=== PATIENT | female | born 2005 | race Caucasian/White ===

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

== ENCOUNTER 2024-01-14 13:38 | Emergency (ER) | payer OTHER, SELFPAY ==
[2024-01-14 13:37] VITALS: BP 137/98; PULSE 100; RESP 15; TEMP 37.2; O2SAT 98
[2024-01-14 13:50] VITALS: PULSE 97; O2SAT 98
--- NOTE | 2024-01-14 13:52 | ECG_ITS ---
Test Date: 2024-01-14 13:44:30 Measurements Intervals [place] Rate: 97 P: 51 MN: 157 QRS: 12 QRSD: 88 T: 17 QT: 328 QTc: 418 Interpretive Statements SINUS RHYTHM NORMAL ECG Compared to ECG 12/10/2023 08:26:47 No significant changes Electronically Signed On 01-15-2024 14:34:28 CDT by Aureliano Persaud M.D.
--- NOTE | 2024-01-14 13:58 | PC.NURSE ---
ED provider aware of High risk [place] Screening. SI precautions initiated. EDP informed and headed to bedside to evaluate pt
--- NOTE | 2024-01-14 13:59 | ED.GENADULT ---
HPI - General Adult General Chief complaint: Altered Mental Status Stated complaint: altered mental status Time Seen by Provider: 01/14/24 13:41 History of Present Illness HPI narrative: This is a 18-year-old female with history of functional seizures presenting after a functional seizure. She got into an argument with her grandmother about a DCFS case. She then lost consciousness in the hallway. Her grandmother called the EMS and she was brought to the hospital for evaluation. At this time the patient has no complaints. She is at her baseline mental status. She is not suicidal or homicidal. No use of drugs or alcohol. Her boyfriend is with her and they feel comfortable going back home. They have declined any workup. Related Data Home Medications Medication Instructions Recorded Confirmed cetirizine 10 mg tablet 10 mg PO DAILY PRN Allergy Symptoms 11/29/22 01/04/24 levothyroxine 75 mcg tablet 100 mcg PO DAILY 11/29/22 01/04/24 blood sugar diagnostic (OneTouch 11/30/23 01/04/24 Verio test strips) blood-glucose sensor (DexTabletKiosk G6 11/30/23 01/04/24 Sensor device) blood-glucose transmitter (Dexcom 11/30/23 01/04/24 G6 Transmitter device) clonazepam 0.5 mg tablet 1 mg PO BID PRN Anxiety 11/30/23 01/04/24 insulin detemir U-100 100 unit/mL 5 unit subcut QID 11/30/23 01/04/24 (3 mL) subcutaneous pen (Levemir FlexPen) levonorgestrel 21 mcg/24 hr (up to 1 device intrauterine ONCE 11/30/23 01/04/24 8 years) 52 mg intrauterine device (Mirena) acetaminophen 500 mg capsule 1,000 mg PO Q6H PRN Pain (Scale 12/01/23 01/04/24 Score 1-3) lurasidone 20 mg tablet 40 mg PO DAILY 12/01/23 01/04/24 trazodone 100 mg tablet 100 mg PO HS 12/01/23 01/04/24 hydroxyzine pamoate 50 mg capsule 50 mg PO TID PRN Anxiety 12/10/23 01/04/24 lisinopril 2.5 mg tablet 2.5 mg PO DAILY 12/10/23 01/04/24 Allergies Allergy/AdvReac Type Severity Reaction Status Date / Time amoxicillin Allergy Hives Verified 01/14/24 13:49 ceftriaxone Allergy Anaphylaxis Verified 01/14/24 13:49 [facility] Past Medical History Medical History Anxiety Bipolar 1 disorder Depression with suicidal ideation Diabetic ketoacidosis Diabetic polyneuropathy Hypothyroidism Psychogenic nonepileptic seizure Seizure disorder Type 1 diabetes Surgical History Surgical History No pertinent past surgical history Family History Family History Sibling Asthma Mother Hypertension Social History Social History Smoking status: Unknown if ever smoked Alcohol intake: never Substance use: former Substance use type: prescription drug Do You Feel Safe in your Home?: Yes Lack of Transportation: No Lack of Food: Never True Current Housing: I Have Housing Concerned About Future Housing: No Difficulty Paying Gas/Electric Bills: No Difficulty Paying for Meds: No Currently Unemployed: No Education: Grade School Difficulty w/ Childcare or Family Care: No Spiritual care concerns: No Exam Narrative: APPEARANCE: No apparent distress. A&O x4 Head: atraumatic. EYES: EOMI, NOSE: Atraumatic NECK: Trachea midline RESPIRATORY: No increased rate of breathing clear to auscultation CARDIOVASCULAR: RRR, ABDOMINAL: Non-distended MUSCULOSKELETAl: No obvious deformities NEURO: Alert. Cranial nerves 2-12 grossly intact. Sensation light touch, motor function cerebellar function intact for 4 extremities. Gait exam was normal. SKIN:: Warm, dry. Normal color PSYCHIATRIC: Normal affect Course Vital Signs Vital signs: Vital Signs Temperature 99 F 01/14/24 13:37 Pulse Rate 100 01/14/24 13:37 Respiratory Rate 15 01/14/24 13:37 Blood Pressure 137/98 H 01/14/24 13:37 Pulse Oximetry 98 01/14/24 13:37 Oxygen Deliver
[2024-01-14 14:07] LABS: Glucose Point of Care 288 mg/dl (65-105)
[2024-01-14 14:11] VITALS: BP 140/84; PULSE 80; RESP 16; O2SAT 98
== END 2024-01-14 14:12 | disposition home or self-care (01) ==
PROVIDERS: Emergency Provider Emergency Medicine; PCP Emergency Medicine
DX: G40.802 Other epilepsy, not intractable, without status epilepticus (principal); F41.9 Anxiety disorder, unspecified; F31.9 Bipolar disorder, unspecified; E03.9 Hypothyroidism, unspecified; E10.9 Type 1 diabetes mellitus without complications; Z79.4 Long term (current) use of insulin
CPT/HCPCS: 82948; 93005; 99284

== ENCOUNTER 2024-01-23 12:20 | Emergency (ER) | payer OTHER, SELFPAY ==
--- NOTE | ~2024-01-23 | CT_ITS ---
EXAMINATION: CT abdomen pelvis w con DATE: 01/23/2024 16:15 INDICATION: lower abd/lower back pain TECHNIQUE: Computed tomography (CT) of the abdomen and pelvis was performed with 100 mL Omnipaque-350 intravenous contrast. Automated exposure control and iterative reconstruction technique were employe d. The dose-length product was 310.36 mGy-cm. COMPARISON: None. FINDINGS: Lower thorax: Unremarkable Liver: Enlarged. Biliary/Gallbladder: Gallbladder is normal. No bile duct dilation. Pancreas: No mass or duct dilation. Spleen: Normal. Adrenals:No mass. Kidneys: No suspicious mass, obstructing stone, or hydronephrosis. Bilateral lobulation versus cortical scarring. GI tract: Mild distal esophageal and gastric wall edema. No small or large bowel dilation. Appendix n ot confidently visualized, no inflammatory process in the right lower quadrant or at the distal cecum . Mesentery/Peritoneum: No ascites, mass, or free air. Retroperitoneum: No mass. Pelvis: Normal urinary bladder. Retroverted uterus. IUD, in good position. Normal bilateral ovaries. Physiologic free pelvic fluid.. Soft Tissues: Soft tissues and body wall unremarkable. Bones: No acute osseous finding. IMPRESSION: Hepatomegaly. Mild esophagitis/gastritis. Otherwise, no acute abdominopelvic process detected. Reviewed, dictated and finalized at location K.
[2024-01-23 12:20] VITALS: BP 117/72; PULSE 120; RESP 16; TEMP 36.8; O2SAT 99
[2024-01-23 12:34] LABS: Glucose Point of Care 181 mg/dl (65-105)
--- NOTE | 2024-01-23 14:49 | ED.RECABL ---
HPI - Recheck/Abnormal Lab/Rx General Chief Complaint: Urogenital-Female Stated Complaint: dka Time Seen by Provider: 01/23/24 14:42 Source: patient Mode of arrival: ambulatory Limitations: no limitations History of Present Illness HPI narrative: Patient is a 18 y/o female who presents to the ED with c/o ketones in her urine. Patient is a type 1 diabetic, states her blood sugars typically run around 250. They have been elevated into the 300s over the last few days. Patient reports she has not been feeling well over the last few days with fatigue, dry mouth, nausea, lower abdominal/lower back pain. She then tested her urine for ketones and it was noted to be elevated. She then prompted here for further evaluation, concern for DKA. She does have history of DKA. Blood sugar upon arrival 181. Patient denies dysuria, hematuria, cough or cold symptoms, fevers. Related Data Home Medications Medication Instructions Recorded Confirmed cetirizine 10 mg tablet 10 mg PO DAILY PRN Allergy Symptoms 11/29/22 01/04/24 levothyroxine 75 mcg tablet 100 mcg PO DAILY 11/29/22 01/04/24 blood sugar diagnostic (MiniMonosTouch 11/30/23 01/04/24 Verio test strips) blood-glucose sensor (Umweltech G6 11/30/23 01/04/24 Sensor device) blood-glucose transmitter (Dexcom 11/30/23 01/04/24 G6 Transmitter device) clonazepam 0.5 mg tablet 1 mg PO BID PRN Anxiety 11/30/23 01/04/24 insulin detemir U-100 100 unit/mL 5 unit subcut QID 11/30/23 01/04/24 (3 mL) subcutaneous pen (Levemir FlexPen) levonorgestrel 21 mcg/24 hr (up to 1 device intrauterine ONCE 11/30/23 01/04/24 8 years) 52 mg intrauterine device (Mirena) acetaminophen 500 mg capsule 1,000 mg PO Q6H PRN Pain (Scale 12/01/23 01/04/24 Score 1-3) lurasidone 20 mg tablet 40 mg PO DAILY 12/01/23 01/04/24 trazodone 100 mg tablet 100 mg PO HS 12/01/23 01/04/24 hydroxyzine pamoate 50 mg capsule 50 mg PO TID PRN Anxiety 12/10/23 01/04/24 lisinopril 2.5 mg tablet 2.5 mg PO DAILY 12/10/23 01/04/24 Allergies Allergy/AdvReac Type Severity Reaction Status Date / Time amoxicillin Allergy Hives Verified 01/14/24 13:49 ceftriaxone Allergy Anaphylaxis Verified 01/14/24 13:49 Review of Systems Review of Systems: All systems reviewed & are unremarkable except as noted in HPI. All systems reviewed & are unremarkable except as noted in HPI and below PMFSH Past Medical History Medical History Anxiety Bipolar 1 disorder Depression with suicidal ideation Diabetic ketoacidosis Diabetic polyneuropathy Hypothyroidism Psychogenic nonepileptic seizure Seizure disorder Type 1 diabetes Surgical History Surgical History No pertinent past surgical history Family History Family History Sibling Asthma Mother Hypertension Social History Social History Smoking status: Unknown if ever smoked Alcohol intake: never Substance use: former Substance use type: prescription drug Do You Feel Safe in your Home?: Yes Lack of Transportation: No Lack of Food: Never True Current Housing: I Have Housing Concerned About Future Housing: No Difficulty Paying Gas/Electric Bills: No Difficulty Paying for Meds: No Currently Unemployed: No Education: Grade School Difficulty w/ Childcare or Family Care: No Spiritual care concerns: No Exam Narrative: GENERAL: Mildly fatigued appearing, well-nourished, non-toxic, in no acute distress. HEAD: Normocephalic, atraumatic. RESPIRATORY: Airway patent, respirations nonlabored. Clear to auscultation bilaterally, no rales, rhonchi, wheezing. CARDIOVASCULAR: Tachycardic with regular rhythm without murmurs, rubs, or gallops. ABDOMINAL: Soft, mild tenderness throughout lower abdomen/LLQ, nondistended
[2024-01-23 15:20] LABS: Basophils Percent Auto 0.4 % (0.2-1.2); Eosinophils Absolute Auto 0.6 K/mm3 (0-0.3); Eosinophils Percent Auto 7.2 % (0-4.4); Hematocrit 39.3 % (37.0-47.0); Hemoglobin 13.1 g/dL (12.0-15.0); Immature Granulocyte Absolute 0.02 K/mm3 (0.00-0.031); Immature Granulocyte Percent A 0.2 % (0-0.5); Lymphocytes Percent Auto 28.5 % (18.3-44.2); Mean Corpuscular HGB Conc 33.3 g/dl (32-36); Mean Corpuscular Hemoglobin 31.3 pg (26-34); Mean Corpuscular Volume 93.8 fl (80-100); Mean Platelet Volume 9.2 fl (7.4-10.4); Monocytes Absolute Auto 0.6 K/mm3 (0.1-0.6); Neutrophils Absolute Auto 4.8 K/mm3 (1.3-6.7); Neutrophils Percent Auto 56.7 % (45.5-73.1); Platelet Count Result 338 k/mm3 (150-375); Red Blood Count 4.19 M/mm3 (4.2-5.4); Red Cell Distribution Width 12.6 % (11.5-14.5); White Blood Count 8.4 K/mm3 (4.5-10.0)
[2024-01-23 15:27] LABS: Add Urine Microscopic? YES; Appearance Urine Clear (Clear); Bacteria Urine None Seen /hpf; Bilirubin Urine Negative (Negative); Blood Urine 2+ (Negative); Color Urine Yellow (Yellow); Glucose Urine UA 2+ mg/dL (Negative); Ketones Urine Negative (Negative); Leukocyte Esterase Ur Negative LEU/UL (Negative); Nitrate Urine Negative (Negative); Non Pathogenic Casts 0-2; Protein Urine Negative (Negative); RBC Urine 0-2 /hpf (0-2); Squamous Epithelial Cell Urine Moderate /hpf (Few); Urobilinogen Urine 0.2 mg/dL (<2.0)
[2024-01-23 15:32] LABS: Alanine Aminotransferase 13 U/L (6-35); Albumin Level 4.9 g/dL (3.7-5.6); Alkaline Phosphatase 109 U/L (45-116); Anion Gap 15 mmol/L (4-12); Aspartate Amino Transferase 25 U/L (14-36); Bilirubin,Total 0.4 mg/dL (0.2-1.3); Blood Urea Nitrogen 26 mg/dL (8-21); Calcium 10.2 mg/dL (8.9-10.7); Carbon Dioxide 22 mmol/L (22-30); Chloride 98 mmol/L (98-107); Estimated CRCL calculation 76 ml/min; Estimated Glomerular Filt Rate > 60; Glucose 227 mg/dL (65-110); Potassium 4.7 mmol/L (3.4-5.0); Sodium 135 mmol/L (134-143)
[2024-01-23 15:37] LABS: Beta-Hydroxybutyrate/Acetoacetate 0.92 mmol/L (0.02-0.27); Lactic Acid Reflex 1.1 mmol/L (0.7-2.0)
[2024-01-23 15:41] VITALS: BP 122/78; PULSE 78; RESP 16; TEMP 36.6; O2SAT 98
[2024-01-23 15:42] LABS: BEDSIDEPREGUCG Negative
[2024-01-23 15:56] LABS: Influenza A QL RT-PCR Negative (Negative); Influenza B QL RT-PCR Negative (Negative); RSV RNA, RT-PCR Negative (Negative); SARS-CoV-2 RNA PCR Negative (Negative)
[2024-01-23 16:01] LABS: Hemoglobin A1C 9.4 % (<5.7)
[2024-01-23] MEDS: SODIUM CHLORIDE 0.9% IV 1,000 ML 999 ML IV CONT ×2 (16:03→16:25)
[2024-01-23 16:40] VITALS: BP 120/70; PULSE 88; RESP 16; TEMP 36.6; O2SAT 100
[2024-01-23 17:30] VITALS: BP 116/68; PULSE 76; RESP 16; TEMP 36.6; O2SAT 100
[2024-01-23] MEDS: FAMOTIDINE 20 MG/2 ML VIAL IV PUSH (17:54)
== END 2024-01-23 18:23 | disposition home or self-care (01) ==
PROVIDERS: Emergency Provider Physician Assistant; PCP Emergency Medicine
DX: K29.70 Gastritis, unspecified, without bleeding (principal); E10.65 Type 1 diabetes mellitus with hyperglycemia; E86.0 Dehydration; Z20.822 Contact with and (suspected) exposure to COVID-19; E10.42 Type 1 diabetes mellitus with diabetic polyneuropathy; G40.909 Epilepsy, unspecified, not intractable, without status epilepticus; F31.9 Bipolar disorder, unspecified; F41.9 Anxiety disorder, unspecified; Z97.5 Presence of (intrauterine) contraceptive device; Z79.4 Long term (current) use of insulin; Z79.899 Other long term (current) drug therapy; R16.0 Hepatomegaly, not elsewhere classified
CPT/HCPCS: 36415; 74177; 80053; 81001; 81025; 82010; 82948; 83036; 83605; 83735; 85025; 87086; 87637; 96361; 96374; 99284; J7030; Q9967

== ENCOUNTER 2024-04-12 13:42 | Outpatient (CLI) | payer OTHER, SELFPAY ==
--- NOTE | ~2024-04-12 | CT_ITS ---
CLINICAL INDICATION: Lower abdominal pain with loose stool and constipation COMPARISON: 01/23/2024. TECHNIQUE: Multiple contiguous axial images of the abdomen and pelvis were performed following the ad ministration of with 100 mL Omnipaque-350 intravenous contrast The dose-length product (DLP) was 387.46 mGy-cm. Automated exposure control and iterative reconstruction technique were employed. FINDINGS/OBSERVATIONS: Visualized lower thorax: The bilateral lung bases are clear. The heart is of normal size, without pericardial effusion. Liver: The liver is enlarged measuring 20 cm in longitudinal dimension. Gallbladder and biliary system: The gallbladder is only minimally distended, and otherwise unremarkable. Pancreas: The pancreas enhances homogeneously without ductal dilatation. Spleen: The spleen enhances homogeneously and is not enlarged measuring 8 cm in longitudinal dimension. Kidneys: The bilateral kidneys enhance symmetrically without hydronephrosis or renal calculi. Adrenal glands: Unremarkable. Gastrointestinal tract: Redemonstration of mural thickening within the rectum with surrounding inflammatory change in the pre sacral space Appendix: The appendix is not definitively visualized. However, no pericecal inflammatory change is identified suggest the presence of acute appendicitis. Vasculature: Unremarkable. Lymph nodes: No pathologically enlarged or morphologically suspicious lymph nodes within the retroperitoneum or at the root of the mesentery. Pelvic structures: The bladder is distended, and otherwise unremarkable. The uterus is retroverted and retroflexed. Intrauterine device in good position. Trace free fluid in the pelvis, likely physiologic Body wall and musculoskeletal: Small fat-containing umbilical hernia. No significant degenerative disease within the lower thoracic or lumbosacral spine. IMPRESSION: Redemonstration of mural thickening within the rectum with surrounding inflammatory change in the pre sacral space. This distribution suggest the presence of ulcerative colitis for which clinical correla tion and direct visualization is suggested. Reviewed, dictated and finalized at location A. 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 This distribution suggest the presence of u lcerative colitis for which clinical correlation and direct visualization is diallo ggested.
[2024-04-12 14:18] LABS: Estimated Glomerular Filt Rate > 60
== END 2024-04-12 13:43 | disposition home or self-care (01) ==
PROVIDERS: PCP Emergency Medicine; Visit Provider Emergency Medicine
DX: K62.89 Other specified diseases of anus and rectum (principal); R22.2 Localized swelling, mass and lump, trunk; R10.30 Lower abdominal pain, unspecified
CPT/HCPCS: 74177; Q9967

== ENCOUNTER 2024-05-03 01:43 | Day surgery (SDC) | payer OTHER, SELFPAY ==
[2024-04-11 15:23] VITALS: BMI 26.5
[2024-05-03 09:17] VITALS: BP 112/68; PULSE 97; RESP 18; TEMP 36.1; O2SAT 98; BMI 25.5
--- NOTE | 2024-05-03 09:29 | P.PNAN_ITS ---
Anes - Initial Pre Proc Eval Procedure: Operation Date: 05/03/24 10:30 Proposed Procedures p Colonoscopy - Zheng Smith MD Date/Time: 05/03/24 09:29 Surgeon: Zheng Smith MD Pre Op Diagnosis: IBS Patient Data Age: 18 Gender: F Height: 1.55 m Weight: 61.3 kg Last Vital Signs Temp 36.1 C L 05/03/24 09:17 Pulse 97 05/03/24 09:17 Resp 18 05/03/24 09:17 BP 112/68 05/03/24 09:17 Pulse Ox 98 05/03/24 09:17 O2 Del Method Room Air 05/03/24 09:17 Allergies Allergy/AdvReac Type Severity Reaction Status Date / Time amoxicillin Allergy Hives Verified 05/03/24 09:15 ceftriaxone Allergy Anaphylaxis Verified 05/03/24 09:15 Home Medications Medication Instructions Recorded Confirmed Type blood sugar diagnostic (OneTouch 11/30/23 05/03/24 History Verio test strips) blood-glucose sensor (Dexcom G6 11/30/23 05/03/24 History Sensor device) blood-glucose transmitter (Dexcom 11/30/23 05/03/24 History G6 Transmitter device) lisinopril 2.5 mg tablet 2.5 mg PO DAILY 12/10/23 05/03/24 History clonidine HCl 0.1 mg tablet 0.1 mg PO BID PRN Anxiety 04/11/24 05/03/24 History insulin glargine 100 unit/mL (3 16 unit subcut DAILY 04/11/24 05/03/24 History mL) subcutaneous pen (Basaglar KwikPen U-100 Insulin) insulin lispro 100 unit/mL See Rx Instructions .Route .COMPLEX 04/11/24 05/03/24 History subcutaneous solution (Humalog U-100 Insulin) iron sucrose 1 tablet PO DAILY 05/03/24 05/03/24 History Patient hx anesthesia problems: none Family hx anesthesia problems: none Results Review: All pre-operative results and documents have been reviewed as part of the pre- operative evaluation. [facility] Past Medical History Medical History Anxiety Bipolar 1 disorder Depression with suicidal ideation Diabetic ketoacidosis Diabetic polyneuropathy Hypothyroidism Psychogenic nonepileptic seizure Seizure disorder Type 1 diabetes Surgical History Surgical History No pertinent past surgical history Family History Family History Sibling Asthma Mother Hypertension Social History Social History Smoking status: Never smoker Alcohol intake: never Substance use: current Substance use type: marijuana Do You Feel Safe in your Home?: Yes Lack of Transportation: No Lack of Food: Never True Current Housing: I Have Housing Concerned About Future Housing: No Difficulty Paying Gas/Electric Bills: No Difficulty Paying for Meds: No Currently Unemployed: No Education: Grade School Difficulty w/ Childcare or Family Care: No Living arrangements: with family Spiritual care concerns: No Anes - Eval Final PreProcedure Day of Procedure 05/03/24 09:29 Patient weight: overweight Heart: regular rate and rhythm Lungs: clear to auscultation Airway: Mallampati scale class II Neurological: alert and oriented Last oral intake: >/= 8 hours ASA classification: III Emergent: no Anesthetic plan: proceed Anesthesia type and monitoring: general GIVS and standard monitoring Results Review: All pre-operative results and documents have been reviewed as part of the pre-operative evaluation. Informed Consent: The patient's anesthetic plan and its attendant risks and benefits were discussed with the patient/family/POA. Questions were solicited and answers provided to the satisfaction of the patient/family/POA.
[2024-05-03] MEDS: LACTATED RINGERS 1,000 ML 150 ML IV CONT (09:35)
--- NOTE | 2024-05-03 09:35 | SUR.PREOP ---
Addendum entered by Lee Metzger RN 05/03/24 10:04: Medication verified by pharmacy and administered. Original Note: Patients glucose 328 upon arrival to preop. Patient reports she was told that she should give herself her Basaglar 16 units prior to going back for procedure. Notified Dr. Guzman of patients glucose, etc. Per Dr. Guzman, okay for patient to administer her 16 units of Basaglar prior to procedure.
[2024-05-03 09:40] LABS: Glucose Point of Care 328 mg/dl (65-105)
--- NOTE | 2024-05-03 09:54 | PHAR ---
The patient's home med of Basaglar insulin pen has been verified.
[2024-05-03] MEDS: BASAGLAR INSULIN SUB-Q (10:03)
--- NOTE | 2024-05-03 10:46 | PM.IMHP ---
H&P: HPI History of Present Illness Date/Time: 05/03/24 10:46 Chief Complaint: Persistent diarrhea Narrative: the patient has a history of type 1 diabetes, celiac disease and has been experiencing constant diarrhea episodes, at least 5 times a day for the past [address] scan ordered by her primary care physician showed thickening of the rectal mucosa suggestive of colitis. She is here for colonoscopy. Review of Systems Review of Systems: All systems reviewed & are unremarkable except as noted in HPI and below PMFSH Past Medical History Medical History Anxiety Bipolar 1 disorder Depression with suicidal ideation Diabetic ketoacidosis Diabetic polyneuropathy Hypothyroidism Psychogenic nonepileptic seizure Seizure disorder Type 1 diabetes Surgical History Surgical History No pertinent past surgical history Family History Family History Sibling Asthma Mother Hypertension Social History Social History Smoking status: Never smoker Alcohol intake: never Substance use: current Substance use type: marijuana Do You Feel Safe in your Home?: Yes Lack of Transportation: No Lack of Food: Never True Current Housing: I Have Housing Concerned About Future Housing: No Difficulty Paying Gas/Electric Bills: No Difficulty Paying for Meds: No Currently Unemployed: No Education: Grade School Difficulty w/ Childcare or Family Care: No Living arrangements: with family Spiritual care concerns: No Meds Home Medications and Allergies Home Medications Medication Instructions Recorded Confirmed Type blood sugar diagnostic (OneTouch 11/30/23 05/03/24 History Verio test strips) blood-glucose sensor (Dexcom G6 11/30/23 05/03/24 History Sensor device) blood-glucose transmitter (Dexcom 11/30/23 05/03/24 History G6 Transmitter device) lisinopril 2.5 mg tablet 2.5 mg PO DAILY 12/10/23 05/03/24 History clonidine HCl 0.1 mg tablet 0.1 mg PO BID PRN Anxiety 04/11/24 05/03/24 History insulin glargine 100 unit/mL (3 16 unit subcut DAILY 04/11/24 05/03/24 History mL) subcutaneous pen (Basaglar KwikPen U-100 Insulin) insulin lispro 100 unit/mL See Rx Instructions .Route .COMPLEX 04/11/24 05/03/24 History subcutaneous solution (Humalog U-100 Insulin) iron sucrose 1 tablet PO DAILY 05/03/24 05/03/24 History Allergies Allergy/AdvReac Type Severity Reaction Status Date / Time amoxicillin Allergy Hives Verified 05/03/24 09:15 ceftriaxone Allergy Anaphylaxis Verified 05/03/24 09:15 Vital Signs Vital Signs - 24 hr 05/03/24 09:17 Temperature 97 F L Pulse Rate 97 Respiratory Rate 18 Blood Pressure 112/68 Pulse Oximetry 98 Oxygen Delivery Room Air Exam Const: General: cooperative and healthy appearing Resp: Effort & Inspection: normal respiratory effort and able to speak in complete sentences Auscultation: clear to auscultation bilaterally Cardio: Rate: regular rate Rhythm: regular rhythm GI: Inspection: normal to inspection GI Palp: No No hepatosplenomegaly present Auscultation: normal bowel sounds Rectal Exam: deferred Skin: General skin exam: normal color Psych: Appearance: grossly normal Mental Status: mental status grossly normal Assessment and Plan Assessment and plan (1) Diarrhea: Code(s): R19.7 - Diarrhea, unspecified Status: Acute Assessment and Plan: There is a suspicion for ulcerative colitis, since she already has to autoimmune conditions, i.e., type 1 diabetes and celiac disease. Will perform colonoscopy today. The patient is deemed a good candidate for the procedure. Consent signed. Will proceed.
[2024-05-03 11:20] VITALS: BP 95/62; PULSE 79; RESP 20; O2SAT 100
[2024-05-03 11:30] VITALS: BP 102/61; PULSE 93; RESP 20; O2SAT 100
[2024-05-03 11:40] VITALS: BP 109/72; PULSE 75; RESP 17; O2SAT 100
--- NOTE | 2024-05-03 11:47 | SUR.PHASEII ---
patient's blood sugar after the procedure was 312. Notified Dr. Guzman of blood sugar.
[2024-05-03 11:51] LABS: Glucose Point of Care 312 mg/dl (65-105)
== END 2024-05-03 12:01 | disposition home or self-care (01) ==
PROVIDERS: PCP Emergency Medicine; Visit Provider Internal Medicine Gastroenterology
PROC: 0DJD8ZZ Inspection of Lower Intestinal Tract, Via Natural or Artificial Opening Endoscopic (ICD-10-PCS; CPT 45378; principal; 2024-05-03 10:30)
DX: K63.89 Other specified diseases of intestine (principal); E10.10 Type 1 diabetes mellitus with ketoacidosis without coma; E10.42 Type 1 diabetes mellitus with diabetic polyneuropathy; E03.9 Hypothyroidism, unspecified; F41.9 Anxiety disorder, unspecified; R45.851 Suicidal ideations; G40.409 Other generalized epilepsy and epileptic syndromes, not intractable, without status epilepticus; F12.90 Cannabis use, unspecified, uncomplicated; F31.9 Bipolar disorder, unspecified; Z79.4 Long term (current) use of insulin
CPT/HCPCS: 45380; 82948; 88305; J2003; J2704; J7120

== ENCOUNTER 2024-06-03 05:41 | Observation (INO) | payer OTHER, SELFPAY ==
[2024-06-03] VITALS (11 sets, daily range): BP systolic 98–126; BP diastolic 57–96; PULSE 82–114; RESP 12–35; TEMP 36.4–37; O2SAT 98–100; BMI 24.5
[2024-06-03 05:50] LABS: Glucose Point of Care 415 mg/dl (65-105)
[2024-06-03 06:13] LABS: Basophils Percent Auto 0.2 % (0.2-1.2); Eosinophils Percent Auto 0.4 % (0-4.4); Hematocrit 42.2 % (37.0-47.0); Hemoglobin 14.3 g/dL (12.0-15.0); Immature Granulocyte Absolute 0.05 K/mm3 (0.00-0.031); Immature Granulocyte Percent A 0.5 % (0-0.5); Lymphocytes Absolute Auto 1.32 K/mm3 (0.9-3.2); Lymphocytes Percent Auto 13.5 % (18.3-44.2); Mean Corpuscular HGB Conc 33.9 g/dl (32-36); Mean Corpuscular Hemoglobin 31.2 pg (26-34); Mean Corpuscular Volume 92.1 fl (80-100); Mean Platelet Volume 9.5 fl (7.4-10.4); Monocytes Absolute Auto 0.8 K/mm3 (0.1-0.6); Monocytes Percent Auto 8.3 % (2.6-8.5); Neutrophils Absolute Auto 7.6 K/mm3 (1.3-6.7); Neutrophils Percent Auto 77.1 % (45.5-73.1); Platelet Count Result 347 k/mm3 (150-375); Red Blood Count 4.58 M/mm3 (4.2-5.4); Red Cell Distribution Width 11.9 % (11.5-14.5); White Blood Count 9.8 K/mm3 (4.5-10.0)
[2024-06-03 06:22] LABS: Alanine Aminotransferase 13 U/L (6-35); Albumin Level 4.8 g/dL (3.5-5.1); Alkaline Phosphatase 127 U/L (38-126); Anion Gap 22 mmol/L (4-12); Aspartate Amino Transferase 27 U/L (14-36); Bilirubin,Total 0.6 mg/dL (0.2-1.3); Blood Urea Nitrogen 31 mg/dL (7-17); Calcium 9.1 mg/dL (8.4-10.2); Carbon Dioxide 13 mmol/L (22-30); Chloride 92 mmol/L (98-107); Estimated CRCL calculation 50 ml/min; Estimated Glomerular Filt Rate 57; Glucose 449 mg/dL (65-110); Lipase 21 U/L (23-300); Potassium 4.1 mmol/L (3.4-5.0); Sodium 127 mmol/L (137-145)
[2024-06-03 06:31] LABS: BEDSIDEPREGUCG Negative (Negative)
[2024-06-03 07:12] LABS: Add Urine Microscopic? YES; Appearance Urine Cloudy (Clear); Bacteria Urine Rare /hpf; Bilirubin Urine Negative (Negative); Blood Urine Negative (Negative); Color Urine Yellow (Yellow); Glucose Urine UA 3+ mg/dL (Negative); Ketones Urine 4+ mg/dL (Negative); Leukocyte Esterase Ur Negative LEU/UL (Negative); Need Manual Microscopic Reviewed; Nitrate Urine Negative (Negative); Protein Urine 2+ mg/dL (Negative); RBC Urine 0-2 /hpf (0-2); Specific Grav Ur 1.025 (1.001-1.035); Squamous Epithelial Cell Urine Moderate /hpf (Few); Urobilinogen Urine 0.2 mg/dL (<2.0)
--- NOTE | 2024-06-03 07:23 | ED_ITS ---
HPI - Nausea/Vomiting/Diarrhea General Chief complaint: Nausea/Vomiting/Diarrhea Stated complaint: i think im in DKA Time Seen by Provider: 06/03/24 07:00 Source: patient and family Mode of arrival: ambulatory Limitations: no limitations History of Present Illness HPI Narrative: Patient presents with concerns that she is in DKA. She has been having high blood sugars. She is a Type 1 insulin-dependent diabetic on both short-acting (carb corrected Humalog) and long-acting (Basaglar) insulin. She states a stomach bug viral infection has been going through their house starting 06/01/2024. Her 1.5yo daughter was sick a few weeks ago as well with RSV, pneumonia, bronchitis versus bronchiolitis. She has been nauseated and vomiting. She has had diarrhea over the last 24 hours. No recent antibiotics or travel. She has previously been in DKA. She has been having subjective fevers and fatigue as well as myalgias particularly in her legs. No cough. Related Data Home Medications ?Medication ?Instructions ?Recorded ?Confirmed ?Last Taken ?Type blood sugar diagnostic (OneTouch 11/30/23 05/03/24 Unknown History Verio test strips) blood-glucose sensor (Dexcom G6 11/30/23 05/03/24 Unknown History Sensor device) blood-glucose transmitter (Dexcom 11/30/23 05/03/24 Unknown History G6 Transmitter device) lisinopril 2.5 mg tablet 2.5 mg PO DAILY 12/10/23 05/03/24 1 Day Ago History ~05/02/24 clonidine HCl 0.1 mg tablet 0.1 mg PO BID PRN Anxiety 04/11/24 05/03/24 Unknown History insulin glargine 100 unit/mL (3 16 unit subcut DAILY 04/11/24 05/03/24 05/03/24 10:56 History mL) subcutaneous pen (Basaglar KwikPen U-100 Insulin) insulin lispro 100 unit/mL See Rx Instructions .Route .COMPLEX 04/11/24 05/03/24 05/01/24 History subcutaneous solution (Humalog U-100 Insulin) iron sucrose 1 tablet PO DAILY 05/03/24 05/03/24 3 Days Ago History ~04/30/24 Allergies Allergy/AdvReac Type Severity Reaction Status Date / Time amoxicillin Allergy Hives Verified 05/03/24 09:15 ceftriaxone Allergy Anaphylaxis Verified 05/03/24 09:15 [facility] Past Medical History Medical History Diabetic polyneuropathy Hypothyroidism Depression with suicidal ideation Psychogenic nonepileptic seizure Diabetic ketoacidosis Bipolar 1 disorder Anxiety Seizure disorder Type 1 diabetes Surgical History Surgical History History of colonoscopy 05/03/24 Family History Family History Sibling Asthma Mother Hypertension Social History Social History (Updated 06/03/24 @ 08:05 by Kaylyn Jenkins MD) Smoking status: Never smoker Alcohol intake: never Substance use: current Substance use type: marijuana Do You Feel Safe in your Home?: Yes Lack of Transportation: No Lack of Food: Never True Current Housing: I Have Housing Concerned About Future Housing: No Difficulty Paying Gas/Electric Bills: No Difficulty Paying for Meds: No Currently Unemployed: No Education: Grade School Difficulty w/ Childcare or Family Care: No Living arrangements: with family Additional living arrangements comments: partner and 1.5yo daughter Spiritual care concerns: No Exam 2 Narrative: GENERAL: well-nourished, and mild acute distress. Appears acutely unwell, pale HEAD: Normocephalic, atraumatic. EYES: Non injected, non icteric ENT: Nares clear, no rhinorrhea or epistaxis. NECK: Supple. CHEST: Speaking in full sentences. No respiratory distress. HEART: Tachycardic rate and rhythm. ABDOMEN: Soft, nondistended. EXTREMITIES: Normal range of motion. No lower extremity edema. SKIN: Warm, dry, no rash. NEURO: No focal deficits. Alert and oriented x3. PSYCH: Normal mood and affect. Course Vital Signs Vital signs: Vital Signs Pulse Rate 112 H 06/03/24 05:54 Respiratory Rate 18 06/03/24 05:54 Blood Pressure 126/96 H 06/03/24 05:54 Pulse Oximetry 100 06/03/24 05:54 Oxygen Delivery Room Air 06/03/24 05:54 Temperature 97.8 F 06/03/24 09:00 Pulse Rate 108 H 06/03/24 09:00 Respiratory Rate 18 06/03/24 09:00 Blood Pressure 118/72 06/03/24 09:00 Pulse Oximetry 100 06/03/24 09:00 Oxygen Delivery Room Air 06/03/24 05:54 MDM - Nausea/Vomiting/Diarrhea MDM Narrative Medical decision making narrative: The patient presents with fatigue, nausea/vomiting, and diarrhea. POC glucose 415mg/dL. In the emergency department she is afebrile with vital signs notable for tachycardia as well as an elevated diastolic blood pressure. Diagnosis of DKA based on the triad of hyperglycemia, ketonuria, and anion-gap metabolic acidosis. She also has glucosuria. Fluid bolus with normal saline administered x1 initially by RN. test negative. 2nd L fluid bolus ordered. Patient has a degree of pseudo hyponatremia as there sodium corrects to 133-135 in the setting of hyperglycemia, improved but still not completely normalized. She has a mild HENRRY. Viral swab negative. Insulin gtt is initiated at approximately 0.1U/kg/hour (~6). Patient is discussed with on-call warhead maintenance specialist Dr. Castro who requests a 3rd bolus in addition to the DKA protocol which includes scheduled metabolic checks. Differential Diagnosis Differential diagnosis: Likely traveler's diarrhea, food poisoning, gastroenteritis, clostridium difficile infection, drug-induced nausea and vomiting, dehydration and other (; DKA, hyperglycemia, acute viral syndrome) Lab Data Attestation: I reviewed the patient's lab results. Lab results narrative: CBC unremarkable 06/03/24 05:58 06/03/24 09:06 Labs: Lab Results 06/03/24 06/03/24 06/03/24 Range/Units 05:47 05:58 06:29 WBC 9.8 (4.5-10.0) K/mm3 RBC 4.58 (4.2-5.4) M/mm3 Hgb 14.3 (12.0-15.0) g/dL Hct 42.2 (37.0-47.0) % MCV 92.1 (80-100) fl MCH 31.2 (26-34) pg MCHC 33.9 (32-36) g/dl RDW 11.9 (11.5-14.5) % Plt Count 347 (150-375) k/mm3 MPV 9.5 (7.4-10.4) fl Immature Gran % (Auto) 0.5 (0-0.5) % Neut % (Auto) 77.1 H (45.5-73.1) % Lymph % (Auto) 13.5 L (18.3-44.2) % [place] % (Auto) 8.3 (2.6-8.5) % Eos % (Auto) 0.4 (0-4.4) % Baso % (Auto) 0.2 (0.2-1.2) % Lymph # (Auto) 1.32 (0.9-3.2) K/mm3 [place] # (Auto) 0.8 H (0.1-0.6) K/mm3 Eos # (Auto) 0.0 (0-0.3) K/mm3 Baso # (Auto) 0.0 (0.0-0.1) K/mm3 Abs Immat Gran (auto) 0.05 H (0.00-0.031) K/mm3 Absolute Neuts (auto) 7.6 H (1.3-6.7) K/mm3 Absolute Nucleated RBC 0.000 (0.0-0.012) K/mm3 Nucleated RBC % 0.0 (0.0-0.2) % Sodium 127 L (137-145) mmol/L Potassium 4.1 (3.4-5.0) mmol/L Chloride 92 L (98-107) mmol/L Carbon Dioxide 13 L (22-30) mmol/L Anion Gap 22 H (4-12) mmol/L BUN 31 H (7-17) mg/dL Creatinine 1.20 H (0.7-1.0) mg/dL Estim Creat Clear Calc 50 ml/min Estimated GFR 57 L (59 - ) Glucose 449 H (65-110) mg/dL POC Capillary Glucose 415 H (65-105) mg/dl Hemoglobin A1c Pending Calcium 9.1 (8.4-10.2) mg/dL Magnesium 2.4 H (1.6-2.3) mg/dL Total Bilirubin 0.6 (0.2-1.3) mg/dL AST 27 (14-36) U/L ALT 13 (6-35) U/L Alkaline Phosphatase 127 H (38-126) U/L Total Protein 8.0 (6.3-8.2) g/dL Albumin 4.8 (3.5-5.1) g/dL Lipase 21 L (23-300) U/L Urine Color Yellow (Yellow) Urine Appearance Cloudy H (Clear) Urine pH 5.0 (5.0-9.0) Ur Specific [place] 1.025 (1.001-1.035) Urine Protein 2+ H (Negative) mg/dL Urine Glucose (UA) 3+ H (Negative) mg/dL Urine Ketones 4+ H (Negative) mg/dL Ur Blood (Man) Negative (Negative) Urine Nitrate Negative (Negative) Urine Bilirubin Negative (Negative) Urine Urobilinogen 0.2 (<2.0) mg/dL Add Ur Microanalysis Reviewed Leukocyte Esterase Rfl Negative (Negative) JERROD/UL Urine RBC 0-2 (0-2) /hpf Urine WBC 11-20 H (0-3) /hpf Ur Squamous Epith Cells Moderate (Few) /hpf Urine Bacteria Rare /hpf Urine Casts 3-5 POC Urine HCG, Qual Negative (Negative) Discharge Plan Discharge Clinical Impression: HENRRY (acute kidney injury), Glucosuria DKA (diabetic ketoacidosis) Qualifiers: Diabetes mellitus complication detail: without coma Patient Disposition: Still a Patient Condition: Serious
[2024-06-03 07:53] LABS: Magnesium 2.4 mg/dL (1.6-2.3)
[2024-06-03] MEDS: SODIUM CHLORIDE 0.9% IV 1,000 ML 999 ML IV CONT ×2 (07:56)
[2024-06-03] MEDS: SODIUM CHLORIDE 0.9% IV 1,000 ML 999 ML (07:56)
[2024-06-03] MEDS: INSULIN HUMAN REGULAR (*BKC) 100 UNITS in SODIUM CHLORIDE 0.9% IV 99 ML 6 UNITS IV CONT (08:12)
[2024-06-03] MEDS: FAMOTIDINE 20 MG/2 ML VIAL IV PUSH ×2 (08:12→22:00)
[2024-06-03 08:23] LABS: Glucose Point of Care 433 mg/dl (65-105)
[2024-06-03 09:17] LABS: Glucose Point of Care 349 mg/dl (65-105)
[2024-06-03 09:19] LABS: Influenza A QL RT-PCR Negative (Negative); Influenza B QL RT-PCR Negative (Negative); RSV RNA, RT-PCR Negative (Negative); SARS-CoV-2 RNA PCR Negative (Negative)
[2024-06-03 09:29] LABS: Anion Gap 17 mmol/L (4-12); Blood Urea Nitrogen 26 mg/dL (7-17); Calcium 7.1 mg/dL (8.4-10.2); Carbon Dioxide 8 mmol/L (22-30); Chloride 107 mmol/L (98-107); Creatine Kinase < 20 U/L (30-135); Estimated CRCL calculation 66 ml/min; Estimated Glomerular Filt Rate > 60; Glucose 407 mg/dL (65-110); Phosphorus 2.1 mg/dL (2.5-4.5); Potassium 3.7 mmol/L (3.4-5.0); Sodium 132 mmol/L (137-145)
[2024-06-03 09:56] LABS: Glucose Point of Care 323 mg/dl (65-105)
[2024-06-03] MEDS: SODIUM CHLORIDE 0.9% IV 1,000 ML 150 ML IV CONT ×2 (10:00→23:34)
[2024-06-03 10:21] LABS: Hemoglobin A1C 11.1 % (<5.7)
[2024-06-03] MEDS: METOCLOPRAMIDE HCL INJ 10 MG/2 ML VIAL IV PUSH (10:25)
--- NOTE | 2024-06-03 10:32 | PC.NURSE ---
This patient, Shama Godfrey, was admitted to Intensive Care Unit-5. Patient/family oriented to hospital policies and general routines including ID bracelet, bed and alarms, visiting hours, pain management, procedures, bathroom and other care routines, personal items, smoking policy, room service/diet, and visiting hours. Information on how to activate the Rapid Response Team has been discussed. Patient/Family are encouraged to report perceived risks to care and to ask questions if they do not understand what they are told or what they should do.
[2024-06-03 11:07] LABS: Glucose Point of Care 147 mg/dl (65-105)
--- NOTE | 2024-06-03 11:13 | WPDCNINT ---
Assessment and Plan Assessment and plan (1) DKA (diabetic ketoacidosis): Qualifiers: Diabetes mellitus complication detail: without coma Code(s): E11.10 - Type 2 diabetes mellitus with ketoacidosis without coma Status: Acute Assessment and Plan: 06/03: Patient presented with nausea, vomiting, diarrhea, hyperglycemia, anion gap metabolic acidosis, was diagnosed with diabetic ketoacidosis in the ER. Given 3 L IV fluid bolus and started on insulin infusion and IV fluids per DKA protocol -in the ICU patient is having dry heaves but no nausea vomiting -will transition to long-acting insulin and sliding scale insulin once anion gap closes -ice chips and sips with meds (2) HENRRY (acute kidney injury): Code(s): N17.9 - Acute kidney failure, unspecified Status: Acute Assessment and Plan: Likely hypovolemic secondary to nausea, vomiting, diarrhea -creatinine has normalized -continue to monitor urine output, renal function electrolytes (3) Diarrhea: Code(s): R19.7 - Diarrhea, unspecified Status: Acute Assessment and Plan: Diarrhea, patient has been evaluated by GI on 05/03/2024, colonoscopy on 05/03/2025 -GI has been consulted 06/03/2024: CT scan of the abdomen and pelvis IMPRESSION: Redemonstration of mural thickening within the rectum with surrounding inflammatory change in the presacral space. This distribution suggest the presence of ulcerative colitis for which clinical correlation and direct visualization is suggested. 05/03/2025 Pathology report IMPRESSION: A. Right colon, random biopsies: - Lymphoid nodular hyperplasia - No evidence of microscopic colitis B. Left colon, random biopsies: - Lymphoid nodular hyperplasia - No evidence of microscopic colitis Plan DVT prophylaxis: Lovenox Stress ulcer prophylaxis: Famotidine Nutrition: Ice chips and sips with meds Code Status: Full code Critical Care Time Spent: 44 minutes Updated patient with her condition and plan of care. She has had DKA previously so she is aware of the treatment plan. I answered all questions Due to a high probability of clinically significant, life threatening deterioration, the patient required my highest level of preparedness to intervene emergently and I personally spent this critical care time directly and personally managing the patient. This critical care time included obtaining a history; examining the patient; pulse oximetry; ordering and review of studies; arranging urgent treatment with development of a management plan; evaluation of patient's response to treatment; frequent reassessment; and discussions with other providers. It was exclusive of separately billable procedures and treating other patients and teaching time. Please see Assessment and Plan section and the rest of the note for further information on patient assessment and treatment This dictation may have been done utilizing a voice recognition system. Attempts have been made to correct errors. However, there may be uncorrected grammatical, spelling, and recognitions errors present. [employer] Consult Note Consult date: 06/03/24 Reason for consult: Diabetic ketoacidosis, nausea, vomiting, diarrhea, ulcerative colitis on CT scan of the abdomen and pelvis HPI: Shama Godfrey is a 19 year old female with past medical history of type 1 diabetes, seizure disorder, psychogenic neuroleptics seizures, hypothyroidism, diabetic polyneuropathy, DKA, depression with suicidal ideation, bipolar disorder, anxiety presented the ED on 06/03/2024 with complains of nausea, vomiting and diarrhea since new ' Day. Patient has been noticing that her blood sugars have been elevated. In the ER patient was found to be in diabetic ketoacidosis, anion gap metabolic acidosis, hyperglycemia. UA was positive for glucose, ketones and proteins. COVID, influenza, RSV Off note patient was seen for colitis by Dr. Smith of [facility], colonoscopy did not show any colitis, pathology of the right and left colon did not show any evidence of microscopic colitis. Patient was given 3 L IV fluids, started on insulin infusion and transferred to the ICU for further management Patient seen and examined the ICU, is awake, alert, with dry heaves. Hemodynamically stable, adequate O2 sats on room air. Denies any shortness of breath, chest pain, abdominal pain at this time. On insulin infusion per DKA protocol Review of Systems Review of Systems: All systems reviewed & are unremarkable except as noted in HPI and below PMFSH Past Medical History Medical History Diabetic polyneuropathy Hypothyroidism Depression with suicidal ideation Psychogenic nonepileptic seizure Diabetic ketoacidosis Bipolar 1 disorder Anxiety Seizure disorder Type 1 diabetes Surgical History Surgical History History of colonoscopy 05/03/24 Family History Family History Sibling Asthma Mother Hypertension Social History Social History (Updated 06/03/24 @ 08:05 by Kaylyn Jenkins MD) Smoking status: Never smoker Second hand tobacco smoke exposure: No Alcohol intake: never Substance use: current Substance use type: marijuana Do You Feel Safe in your Home?: Yes Lack of Transportation: No Lack of Food: Never True Current Housing: Decline to Answer Concerned About Future Housing: Decline to Answer Difficulty Paying Gas/Electric Bills: Decline to Answer Difficulty Paying for Meds: Decline to Answer Currently Unemployed: Decline to Answer Education: High School Diploma/GED Difficulty w/ Childcare or Family Care: Decline to Answer Living arrangements: with family Additional living arrangements comments: partner and 1.5yo daughter Spiritual care concerns: No Meds Home Medications and Allergies Home Medications ?Medication ?Instructions ?Recorded ?Confirmed ?Type blood sugar diagnostic (OneTouch 11/30/23 06/03/24 History Verio test strips) blood-glucose sensor (Dexcom G6 11/30/23 06/03/24 History Sensor device) insulin glargine 100 unit/mL (3 16 unit subcut DAILY 04/11/24 06/03/24 History mL) subcutaneous pen (Basaglar KwikPen U-100 Insulin) insulin lispro 100 unit/mL See Rx Instructions .Route .COMPLEX 04/11/24 06/03/24 History subcutaneous solution (Humalog U-100 Insulin) Allergies Allergy/AdvReac Type Severity Reaction Status Date / Time amoxicillin Allergy Hives Verified 05/03/24 09:15 ceftriaxone Allergy Anaphylaxis Verified 05/03/24 09:15 Vital Signs Vital Signs - 24 hr 06/03/24 05:54 06/03/24 07:46 06/03/24 09:00 Temperature 97.6 F 97.8 F Pulse Rate 112 H 114 H 108 H Respiratory Rate 18 18 18 Blood Pressure 126/96 H 124/68 118/72 Pulse Oximetry 100 99 100 Oxygen Delivery Room Air 06/03/24 10:00 06/03/24 10:00 06/03/24 10:00 Temperature 98.6 F Pulse Rate 107 H 102 H 106 H Respiratory Rate 19 21 H Blood Pressure 112/70 113/70 Pulse Oximetry 98 99 Oxygen Delivery Exam Narrative: General: Young female currently in no acute distress HEENT:? Pupils equal and reactive was clear ischemia, moist oral mucous Neck:? Supple Respiratory:? Clear to auscultation bilaterally Cardiac:? S1-S2 is normal, regular rate and rhythm Abdomen:? Soft, nontender, nondistended, normoactive bowel sound Extremities:? No edema, palpable pedal pulses Neuro:? Patient awake, alert, oriented, nonfocal Skin:? Warm and dry, no lesions Psych:? Normal mentation and affect Results Labs 06/03/24 05:58 06/03/24 09:06 Labs: Short CBC 06/03/24 Range/Units 05:58 WBC 9.8 (4.5-10.0) K/mm3 Hgb 14.3 (12.0-15.0) g/dL Hct 42.2 (37.0-47.0) % Plt Count 347 (150-375) k/mm3 BMP 06/03/24 06/03/24 05:58 09:06 Sodium 127 L 132 L Potassium 4.1 3.7 Chloride 92 L 107 Carbon Dioxide 13 L 8 L BUN 31 H 26 H Creatinine 1.20 H 0.90 Glucose 449 H 407 H Calcium 9.1 7.1 L Cardiac Enzymes 06/03/24 Range/Units 09:06 Total Creatine Kinase < 20 L (30-135) U/L Liver Function 06/03/24 Range/Units 05:58 Total Bilirubin 0.6 (0.2-1.3) mg/dL AST 27 (14-36) U/L ALT 13 (6-35) U/L Alkaline Phosphatase 127 H (38-126) U/L Albumin 4.8 (3.5-5.1) g/dL Urine 06/03/24 Range/Units 06:29 Urine Color Yellow (Yellow) Urine Appearance Cloudy H (Clear) Urine pH 5.0 (5.0-9.0) Ur Specific [place] 1.025 (1.001-1.035) Urine Protein 2+ H (Negative) mg/dL Urine Glucose (UA) 3+ H (Negative) mg/dL
[2024-06-03] MEDS: KCL 20 MEQ/D5/0.45% SOD CHL 1,000 ML 150 ML IV CONT ×2 (11:14→17:48)
[2024-06-03] MEDS: ACETAMINOPHEN 325 MG TABLET 650 MG PO (11:39)
[2024-06-03 12:25] LABS: Glucose Point of Care 145 mg/dl (65-105)
--- NOTE | 2024-06-03 12:40 | PM.IMHP ---
H&P: HPI History of Present Illness Date/Time: 06/03/24 13:30 Chief Complaint: High blood sugar. Narrative: This is a 19-year-old female with history of type 1 diabetes mellitus with diabetic polyneuropathy, diabetic ketoacidosis, seizure disorder, psychogenic nonepileptic seizures, hypothyroidism, bipolar disorder, anxiety, and depression with history of suicide attempt who presented to the emergency department with complaints high blood sugar. She gives a 2 day history of nausea, vomiting, diarrhea, subjective fevers, fatigue, and myalgias. Her glucose is becoming increasingly elevated. Other members in her household have had similar symptoms and her daughter was also sick several weeks ago with RSV and pneumonia. She denies sinus congestion, sore throat, cough, hematemesis, melena, hematochezia, and dysuria. In the ED: She was tachycardic on arrival though the remainder of her vital signs were stable. Labs were significant for sodium of 127, potassium 4.1, chloride 92, carbon dioxide 13, anion gap 22, BUN 31, creatinine 1.20, glucose 449. Urinalysis was positive for 2+ protein, 3+ glucose, and 4+ ketones. Respiratory panel was negative. She was given 2 L IV fluid bolus, ondansetron, and was started on insulin drip and she is being admitted in this setting for further treatment of DKA. Review of Systems Review of Systems: 12 systems were reviewed and are negative except for as per HPI. [facility] Past Medical History Medical History (Updated 06/03/24 @ 13:12 by Yumiko Vivar PA-C) Suicide attempt (11/2023) Depression Diabetic polyneuropathy Hypothyroidism Psychogenic nonepileptic seizure Diabetic ketoacidosis Bipolar 1 disorder Anxiety Seizure disorder Type 1 diabetes Surgical History Surgical History (Updated 06/03/24 @ 13:10 by Yumiko Vivar PA-C) History of appendectomy History of colonoscopy (05/2024) For evaluation of diarrhea- normal colonoscopy to depth of insertion. Left and right colon biopsies were without evidence of microscopic colitis. Family History Family History Sibling Asthma Mother Hypertension Social History Social History (Updated 06/03/24 @ 13:11 by Yumiko Vivar PA-C) Social History: Surrogate medical decision maker: capri Stubbs other ([phone]). Code status: Full code. Smoking status: Never smoker Second hand tobacco smoke exposure: No Alcohol intake: never Substance use: current Substance use type: marijuana Do You Feel Safe in your Home?: Yes Lack of Transportation: No Lack of Food: Never True Current Housing: Decline to Answer Concerned About Future Housing: Decline to Answer Difficulty Paying Gas/Electric Bills: Decline to Answer Difficulty Paying for Meds: Decline to Answer Currently Unemployed: Decline to Answer Education: High School Diploma/GED Difficulty w/ Childcare or Family Care: Decline to Answer Additional living arrangements comments: Lives with significant other and daughter in [place]. Additional occupation/education comments: Unemployed. Spiritual care concerns: No Meds Home Medications and Allergies Home Medications ?Medication ?Instructions ?Recorded ?Confirmed ?Type blood sugar diagnostic (OneTouch 11/30/23 06/03/24 History Verio test strips) blood-glucose sensor (Dexcom G6 11/30/23 06/03/24 History Sensor device) insulin glargine 100 unit/mL (3 16 unit subcut DAILY 04/11/24 06/03/24 History mL) subcutaneous pen (Basaglar KwikPen U-100 Insulin) insulin lispro 100 unit/mL See Rx Instructions .Route .COMPLEX 04/11/24 06/03/24 History subcutaneous solution (Humalog U-100 Insulin) Allergies Allergy/AdvReac Type Severity Reaction Status Date / Time amoxicillin Allergy Hives Verified 05/03/24 09:15 ceftriaxone Allergy Anaphylaxis Verified 05/03/24 09:15 Vital Signs Vital Signs - 24 hr 06/03/24 05:54 06/03/24 07:46 06/03/24 09:00 Temperature 97.6 F 97.8 F Pulse Rate 112 H 114 H 108 H Respiratory Rate 18 18 18 Blood Pressure 126/96 H 124/68 118/72 Pulse Oximetry 100 99 100 Oxygen Delivery Room Air 06/03/24 10:00 06/03/24 10:00 06/03/24 10:00 Temperature 98.6 F Pulse Rate 107 H 102 H 106 H Respiratory Rate 19 21 H Blood Pressure 112/70 113/70 Pulse Oximetry 98 99 Oxygen Delivery Exam Narrative: General: Ill-appearing female in the semi-Ramirez position in bed. As a weight: 58.9 kg. BMI: 24.5. HEENT: PERRL, EOMI. Sclera anicteric. Conjunctiva moderately injected. Tacky mucous membranes. Neck: Supple. Respiratory: Lungs are clear to auscultation bilaterally. Cardiovascular: Tachycardic with normal S1-S2. Gastrointestinal: Abdomen is soft, nontender, and nondistended with positive bowel sounds. Skin: Warm and dry. No rash or lesions on limited exam. Extremities: No cyanosis, clubbing, or edema. Radial and pedal pulses intact. Neurological: Alert. Cranial nerves 2-12 are grossly intact. No gross focal deficits to casual conversation. Psychiatric: Cooperative with appropriate mood and anxious affect. H&P: Results Labs Labs: Short CBC 06/03/24 Range/Units 05:58 WBC 9.8 (4.5-10.0) K/mm3 Hgb 14.3 (12.0-15.0) g/dL Hct 42.2 (37.0-47.0) % Plt Count 347 (150-375) k/mm3 BMP 06/03/24 06/03/24 05:58 09:06 Sodium 127 L 132 L Potassium 4.1 3.7 Chloride 92 L 107 Carbon Dioxide 13 L 8 L BUN 31 H 26 H Creatinine 1.20 H 0.90 Glucose 449 H 407 H Calcium 9.1 7.1 L Cardiac Enzymes 06/03/24 Range/Units 09:06 Total Creatine Kinase < 20 L (30-135) U/L Liver Function 06/03/24 Range/Units 05:58 Total Bilirubin 0.6 (0.2-1.3) mg/dL AST 27 (14-36) U/L ALT 13 (6-35) U/L Alkaline Phosphatase 127 H (38-126) U/L Albumin 4.8 (3.5-5.1) g/dL Urine 06/03/24 Range/Units 06:29 Urine Color Yellow (Yellow) Urine Appearance Cloudy H (Clear) Urine pH 5.0 (5.0-9.0) Ur Specific [place] 1.025 (1.001-1.035) Urine Protein 2+ H (Negative) mg/dL Urine Glucose (UA) 3+ H (Negative) mg/dL Assessment and Plan Assessment and plan (1) Diabetic ketoacidosis: Code(s): E11.10 - Type 2 diabetes mellitus with ketoacidosis without coma Status: Acute (2) Acute kidney injury: Code(s): N17.9 - Acute kidney failure, unspecified Status: Acute (3) Diarrhea: Qualifiers: Diarrhea type: presumed infectious Qualified Code(s): R19.7 - Diarrhea, unspecified Code(s): R19.7 - Diarrhea, unspecified Status: Acute Plan The patient presented to the emergency department with complaints of high blood sugar after 2 days of nausea, vomiting, and diarrhea as detailed in HPI. Glucose was 449 on arrival with elevated anion gap, ketonuria, and glucosuria. She has been admitted to the ICU on an insulin drip which will be titrated per DKA protocol. She has an acute kidney injury, likely due to dehydration from volume loss, and she is being aggressively hydrated. Continue Q hourly Accu-Cheks and q.4 BMPs to monitor electrolytes, glucose, and for anion gap closure. Hemoglobin A1c is at 11.1% today and the sustainable agriculture specialist has been consulted. She continues to have issues with diarrhea and stool studies have been ordered. Abdominal CT today once again showed mural thickening within the rectum and surrounding inflammatory change suggestive of possible ulcerative colitis although a colonoscopy in 05/2024 was unremarkable to depth with left and right colon biopsy showing no evidence of microscopic colitis. GI consulted for further recommendations. Her medications will be reviewed and resumed as appropriate. Findings and treatment plan were discussed with the patient. Questions were solicited and answered to satisfaction. The patient's medical management will be taken over by the hospitalist team in a.m. Quality VTE Prophylaxis VTE prophylaxis: pharmacologic ordered The patient has been admitted under observation status. Hospitalist [facility] Advance Care Plan I have confirmed that the patient's Advanced Care Plan is present, code status is documented, or surrogate decision maker is listed in patient medical record.: Yes Medication Reconciliation I have utilized all available resources to obtain, update and review the patients current medications (includes all prescriptions, OTC, herbals, cannabis, and nutritional supplements).: Yes
[2024-06-03 12:41] LABS: Anion Gap 10 mmol/L (4-12); Blood Urea Nitrogen 21 mg/dL (7-17); Calcium 7.3 mg/dL (8.4-10.2); Carbon Dioxide 11 mmol/L (22-30); Chloride 112 mmol/L (98-107); Estimated CRCL calculation 83 ml/min; Estimated Glomerular Filt Rate > 60; Glucose 160 mg/dL (65-110); Sodium 133 mmol/L (137-145)
--- NOTE | 2024-06-03 12:50 | P.CONGI_ITS ---
Assessment and Plan Assessment and plan (1) Diarrhea: Qualifiers: Diarrhea type: presumed infectious Qualified Code(s): R19.7 - Diarrhea, unspecified <Stephany D. Neydasouleymane [facility] - Last Filed: 06/03/24 13:05> Code(s): R19.7 - Diarrhea, unspecified <Stephany D. Koledana [facility] - Last Filed: 06/03/24 13:05> Status: Acute <Stephany D. Koledana [facility] - Last Filed: 06/03/24 13:05> (2) DKA (diabetic ketoacidosis): Qualifiers: Diabetes mellitus complication detail: without coma D iabetes mellitus type: type 1 Qualified Code(s): E10.10 - Type 1 diabetes mellitus with ketoacidosis without coma <Stephany D. Neydasouleymane, [facility] - Last Filed: 06/03/24 13:05> Code(s): E11.10 - Type 2 diabetes mellitus with ketoacidosis without coma < Stephany D. Neydasouleymane, [facility] - Last Filed: 06/03/24 13:05> Status: Acute <Stephany D. Koledana, [facility] - Last Filed: 06/03/24 13:05> (3) Nausea and vomiting: Qualifiers: Vomiting type: bilious vomiting Qualified Code(s): R11.14 - Bilious vomiting <Stephany D. Neydasouelymane [facility] - Last Filed: 06/03/24 13:05> Code(s): R11.2 - Nausea with vomiting, unspecified <Stephany D. Neydasouleymane [facility] - Last Filed: 06/03/24 13:05> Status: Acute <Stephany D. Neydasouleymane, [facility] - Last Filed: 06/03/24 13:05> (4) Abnormal digestive system diagnostic imaging: Code(s): R93.3 - Abnormal findings on diagnostic imaging of other parts of digestive tract <Stephany D. Neydasouleymane [employer] [employer] - Last Filed: 06/03/24 13:05> Status: Acute <Stephany D. Neydasouleymane [facility] - Last Filed: 06/03/24 13:05> (5) Esophagitis: Code(s): K20.90 - Esophagitis, unspecified without bleeding <Stephany D. Eslinger, [employer] - Last Filed: 06/03/24 13:05> Status: Acute <Stephany Quiles APRN - Last Filed: 06/03/24 13:05> Assessment and Plan: 1. Colitis/nausea/vomiting/diarrhea/nausea/vomiting/ Abnormal imaging digestive/DKA: CT scan on April 12 showed mural thickening into the rectum with surrounding inflammatory changes in the presacral space. CT performed in December of 2023 showed mild esophagitis / gastritis. Colonoscopy 05/03/2024 was normal and biopsies were negative for microscopic colitis. Last EGD performed many years ago as a child, results unknown. Patient states that following her colonoscopy her diarrhea had improved and she was having formed stools until about 2 days ago. Patient states that she lives with a grandparent and he had an acute onset of nausea, vomiting and diarrhea in these symptoms later spread throughout the house. Patient admits to a decreased appetite over the past 3 days. She is still having nausea and vomiting with only minimal improvement with antiemetics. She complains of generalized abdominal soreness related to diarrhea and frequent vomiting but denies any specific pain. Over the past 2 days she has been having liquid nonstop diarrhea. Today she had a bowel movement that was more formed and non urgent. Prior to her admission she states that her blood sugar got out of control yesterday evening and on arrival blood sugar was at 449 which has been trending down 407-->160 and A1C 11.1. LFTs were normal except mildly elevated alkaline phosphatase at 127 and lipase 21. No repeat abdominal imaging has been performed this admission so there is no confirmation of colitis. * Given description of symptoms and acute onset her symptoms are likely related to acute viral /inflammatory condition in combination with current DKA * no indication for emergent endoscopic evaluation at this time * Continue supportive care with IV fluids, antiemetics, and pain management * continue famotidine and Reglan as needed * start Protonix 40 mg IV daily * if symptoms persist may consider inpatient gastric emptying study given history of uncontrolled blood sugars * To consider outpatient EGD to follow-up on esophagitis/gastritis noted on CT performed in December of 2023 Thank you very much for allowing me to share in the care this very nice patient This report may have been done utilizing a voice recognition system. Attempts have been made to correct errors. However, there may be uncorrected grammatical, spelling, and recognition errors present. <Stephany Quiles APRN - Last Filed: 06/03/24 13:05> GI Consult Note Consult date/time: 06/03/24 12:50 <Stephany Quiles APRN - Last Filed: 06/03/24 13:05> Reason for consult: Colitis, nausea and vomiting <Stephany Quiles APRN - Last Filed: 06/03/24 13:05> HPI: This is a 19-year-old female with history of insulin-dependent diabetes, diabetic polyneuropathy, hypothyroidism, depression with suicidal ideation, psychogenic nonepileptic seizure, bipolar disorder, and anxiety. the patient presented to the emergency room today with concerns that she was in DKA. On initial presentation the patient was shown to have a blood sugar of 449. GI has been consulted for colitis, nausea and vomiting. Patient states that recently her 1-1/2-year-old daughter was sick with RSV, pneumonia and bronchitis a few weeks ago. the patient states that they live with grandparents and that the beginning of the month her grandpa started having nausea vomiting and diarrhea aka stomach bug viral infection going through her house. Patient states that her and her significant other also got sick about 2 days ago. patient has been having nausea that has only slightly improved since her admission. She admits to a decreased appetite over the past 3 days. Patient states that yesterday evening her blood sugars increased and that is what prompted her to proceed to the emergency room. patient had a colonoscopy May 03 which was normal and biopsies were negative for microscopic colitis. Colonoscopy was completed to further evaluate complaints of diarrhea. Following her colonoscopy the patient states that her diarrhea had improved and that she was having formed stools until her acute onset of symptoms 2 days ago. Patient states that over the past few days she has been having liquid and nonstop diarrhea . She states that she had 1 bowel movement today that was more formed and less urgent. She denies bloating, odynophagia, dysphagia, reflux, regurgitation, early satiety, unexplained weight loss, constipation, hematochezia, or melena. Denies any NSAID, aspirin, or anticoagulant use. Denies any alcohol or tobacco use. Admits to occasional marijuana use. Family medical history unknown. ENDOSCOPY HISTORY: EGD: Last colonoscopy was performed as a young child results unknown COLONOSCOPY: 05/03/[address] Smith for diarrhea Findings: Eight cold forceps biopsies were taken from the left colon and right colon to rule out microscopic colitis. Colonoscopy was otherwise normal Bx results: A. Right colon, random biopsies: - Lymphoid nodular hyperplasia - No evidence of microscopic colitis B. Left colon, random biopsies: - Lymphoid nodular hyperplasia - No evidence of microscopic colitis LABS AND STOOL STUDIES: Labs 06/03/2024 showed sodium 132, potassium 3.7, BUN 26, creatinine 0.90, GFR > 60 WBC is 10, HGB 14, HCT 42, MCV 92, platelets 347 Total bilirubin 0.6, AST 27, ALT 13, alkaline phosphatase 127, albumin 4.8 Calcium 7.1, phosphorus 2.1, magnesium 2.4, lipase 21 Glucose on admission 449 and today 407 IMAGING: CT abd/pelvis w/contrast 04/12/2024 IMPRESSION: Redemonstration of mural thickening within the rectum with surrounding inflammatory change in the presacral space. This distribution suggest the presence of ulcerative colitis for which clinical correlation and direct visualization is suggested. CT abd/pelvis w/contrast 01/23/2024 IMPRESSION: Hepatomegaly. Mild esophagitis/gastritis. Otherwise, no acute abdominopelvic process detected. <Stephany Quiles APRN - Last Filed: 06/03/24 13:05> Review of Systems 2 Constitutional: Constitutional: Reports as per HPI <Stephany Quiles APRN - Last Filed: 06/03/24 13:05> ENT: Reports as per HPI <Stephany Quiles APRN - Last Filed: 06/03/24 13:05> Cardiovascular: Cardiovascular: Reports as per HPI, Denies chest pain and Denies dyspnea <Stephany Quiles APRN - Last Filed: 06/03/24 13:05> Respiratory: Respiratory: Denies cough and Denies dyspnea <Stephany Quiles APRN - Last Filed: 06/03/24 13:05> Gastrointestinal: Gastrointestinal: Reports as per HPI <Stephanyshayna Quiles APRN - Last Filed: 06/03/24 13:05> Musculoskeletal: Musculoskeletal: Reports as per HPI <Stephanyshayna Quiles APRN - Last Filed: 06/03/24 13:05> Integumentary/Breasts: Skin/Breast: Reports as per HPI <Stephanyshayan Quiles APRN - Last Filed: 06/03/24 13:05> Psychiatric: Psychiatric: Reports as per HPI <Stephanyshayna Quiles [employer] - Last Filed: 06/03/24 13:05> Endocrine: Endocrine: Reports no additional endocrine complaints <Stephanyshayna Quiles APRN - Last Filed: 06/03/24 13:05> Hematologic/Lymphatic: Hematologic/Lymphatic: Reports no additional hematologic/lymphatic complaints <Stephanyshayna Quiles APRN - Last Filed: 06/03/24 13:05> [facility] Past Medical History Medical History: Medical History (Updated 06/03/24 @ 13:12 by Yumiko Vivar PA-C) Suicide attempt (11/2023) Depression Diabetic polyneuropathy Hypothyroidism Psychogenic nonepileptic seizure Diabetic ketoacidosis Bipolar 1 disorder Anxiety Seizure disorder Type 1 diabetes <Stephanyshayna Quiles Last Filed: 06/03/24 13:05> Surgical History Surgical History: Surgical History (Updated 06/03/24 @ 13:10 by Yumiko Vivar PA-C) History of appendectomy History of colonoscopy (05/2024) For evaluation of diarrhea- normal colonoscopy to depth of insertion. Left and right colon biopsies were without evidence of microscopic colitis. <Stephanyshayna Quiles [employer] - Last Filed: 06/03/24 13:05> Family History Family History: Family History Sibling Asthma Mother Hypertension <Stephanyshayna Quiles APRN - Last Filed: 06/03/24 13:05> Social History Social History: Social History (Updated 06/03/24 @ 13:11 by Yumiko Vivar PA-C) Social History: Surrogate medical decision maker: Denton Saucedo significant other ([phone]). Code status: Full code. Smoking status: Never smoker Second hand tobacco smoke exposure: No Alcohol intake: never Substance use: current Substance use type: marijuana Do You Feel Safe in your Home?: Yes Lack of Transportation: No Lack of Food: Never True Current Housing: Decline to Answer Concerned About Future Housing: Decline to Answer Difficulty Paying Gas/Electric Bills: Decline to Answer Difficulty Paying for Meds: Decline to Answer Currently Unemployed: Decline to Answer Education: High School Diploma/GED Difficulty w/ Childcare or Family Care: Decline to Answer Additional living arrangements comments: Lives with significant other and daughter in [place]. Additional occupation/education comments: Unemployed. Spiritual care concerns: No <Stephany Quiles APRN - Last Filed: 06/03/24 13:05> Meds Home Medications and Allergies Home medications: Home Medications ?Medication ?Instructions ?Recorded ?Confirmed ?Type blood sugar diagnostic (OneTouch 11/30/23 06/03/24 History Verio test strips) blood-glucose sensor (Dexcom G6 11/30/23 06/03/24 History Sensor device) insulin glargine 100 unit/mL (3 16 unit subcut DAILY 04/11/24 06/03/24 History mL) subcutaneous pen (Basaglar KwikPen U-100 Insulin) insulin lispro 100 unit/mL See Rx Instructions .Route .COMPLEX 04/11/24 06/03/24 History subcutaneous solution (Humalog U-100 Insulin) <Stephany Quiles APRN - Last Filed: 06/03/24 13:05> Allergies/Adverse reactions: Allergies Allergy/AdvReac Type Severity Reaction Status Date / Time amoxicillin Allergy Hives Verified 05/03/24 09:15 ceftriaxone Allergy Anaphylaxis Verified 05/03/24 09:15 <Stephany Quiles APRN - Last Filed: 06/03/24 13:05> Vital Signs Vital Signs - 24 hr 06/03/24 05:54 06/03/24 07:46 06/03/24 09:00 Temperature 97.6 F 97.8 F Pulse Rate 112 H 114 H 108 H Respiratory Rate 18 18 18 Blood Pressure 126/96 H 124/68 118/72 Pulse Oximetry 100 99 100 Oxygen Delivery Room Air 06/03/24 10:00 06/03/24 10:00 06/03/24 10:00 Temperature 98.6 F Pulse Rate 107 H 102 H 106 H Respiratory Rate 19 21 H Blood Pressure 112/70 113/70 Pulse Oximetry 98 99 Oxygen Delivery 06/03/24 12:00 Temperature Pulse Rate 98 Respiratory Rate Blood Pressure Pulse Oximetry Oxygen Delivery <Stephany Quiles APRN - Last Filed: 06/03/24 13:05> Exam 2 Const: General: cooperative, healthy appearing, comfortable, well developed and uncomfortable (nauseated) <Stephany Quiles APRN - Last Filed: 06/03/24 13:05> Orientation/consciousness: oriented to person, oriented to place, oriented to time and patient oriented x3 <Stephany Quiles APRN - Last Filed: 06/03/24 13:05> HENMT: Head: normal to inspection, normocephalic and atraumatic <Stephany Quiles APRN Last Filed: 06/03/24 13:05> Mouth: Yes Normal oral and palatal mucosa present and Yes moist mucous membranes <Stephany Quilse APRN - Last Filed: 06/03/24 13:05> Eyes: General: appearance normal, both eyes and all related structures < Stephany Quiles APRN - Last Filed: 06/03/24 13:05> Conjunctivae: conjunctivae normal <Stephany Quiles APRN - Last Filed: 06/03/24 13:05> Sclera: sclerae normal <Stephany Quiles APRN - Last Filed: 06/03/24 13:05> Pupils: Equal, round and reactive pupils present <Stephany Quiles APRN Last Filed: 06/03/24 13:05> Neck: Neck: normal visual inspection <Stephany Quiles APRN - Last Filed: 06/03/24 13:05> Chest: Chest palpation & inspection: normal inspection of the chest < Stephany Quiles APRN - Last Filed: 06/03/24 13:05> Resp: Effort & Inspection: normal respiratory effort and able to speak in complete sentences <Stephany Quiles APRN - Last Filed: 06/03/24 13:05> Auscultation: clear to auscultation bilaterally <[facility] Last Filed: 06/03/24 13:05> Cardio: Jugular venous distension: no JVD <[facility] Last Filed: 06/03/24 13:05> Rate: regular rate <Stephany Quiles [facility] Last Filed: 06/03/24 13:05> Rhythm: regular rhythm <Stephany Quiles [facility] Last Filed: 06/03/24 13:05> Heart sounds: S1 normal heart sound present and S2 normal heart sound present <Stephany Quiles [facility] Last Filed: 06/03/24 13:05> GI: Inspection: normal to inspection <Stephany Quiles [facility] Last Filed: 06/03/24 13:05> GI Palp: Yes Soft to palpation and Yes No hepatosplenomegaly present <Stephany Quiles [facility] Last Filed: 06/03/24 13:05> Auscultation: normal bowel sounds <Stephany Quiles [facility] Last Filed: 06/03/24 13:05> Rectal Exam: deferred <Stephany Quiles [facility] Last Filed: 06/03/24 13:05> Skin: General skin exam: normal color and no rashes or lesions noted < Stephany Quiles [facility] Last Filed: 06/03/24 13:05> Neuro: General: oriented to person, oriented to place, oriented to time and patient oriented x3 <Stephany Quiles [facility] Last Filed: 06/03/24 13:05> Cranial nerves: Yes Equal, round and reactive pupils present <Stephany Fayesouleymane [facility] Last Filed: 06/03/24 13:05> Speech: normal speech <Stephany Fayehumeradana [facility] Last Filed: 06/03/24 13:05> Extrem: General: normal to inspection and no clubbing, cyanosis or edema < Stephany JoinerFranklyn Neydasouleymane [facility] Last Filed: 06/03/24 13:05> Psych: Appearance: grossly normal and well kempt <Stephany Quiles APRN - Last Filed: 06/03/24 13:05> Affect: normal affect <Stephany Quiles APRN - Last Filed: 06/03/24 13:05> Results Labs CBC & Chem 7: 06/04/24 04:30 06/04/24 04:30 <Stephany Quiles APRN - Last Filed: 06/03/24 13:05> Labs: Short CBC 06/03/24 Range/Units 05:58 WBC 9.8 (4.5-10.0) K/mm3 Hgb 14.3 (12.0-15.0) g/dL Hct 42.2 (37.0-47.0) % Plt Count 347 (150-375) k/mm3 BMP 06/03/24 06/03/24 06/03/24 05:58 09:06 12:17 Sodium 127 L 132 L 133 L Potassium 4.1 3.7 4.0 Chloride 92 L 107 112 H Carbon Dioxide 13 L 8 L 11 L BUN 31 H 26 H 21 H Creatinine 1.20 H 0.90 0.70 Glucose 449 H 407 H 160 H Calcium 9.1 7.1 L 7.3 L Cardiac Enzymes 06/03/24 Range/Units 09:06 Total Creatine Kinase < 20 L (30-135) U/L Liver Function 06/03/24 Range/Units 05:58 Total Bilirubin 0.6 (0.2-1.3) mg/dL AST 27 (14-36) U/L ALT 13 (6-35) U/L Alkaline Phosphatase 127 H (38-126) U/L Albumin 4.8 (3.5-5.1) g/dL Urine 06/03/24 Range/Units 06:29 Urine Color Yellow (Yellow) Urine Appearance Cloudy H (Clear) Urine pH 5.0 (5.0-9.0) Ur Specific [place] 1.025 (1.001-1.035) Urine Protein 2+ H (Negative) mg/dL Urine Glucose (UA) 3+ H (Negative) mg/dL <Stephany Quiles APRN - Last Filed: 06/03/24 13:05> Attestation Supervising Provider Attestation patient seen and examined agree with the above assessment and plan advised patient not to smoke marijuana currently being managed for diabetic ketoacidosis stool studies to rule out infectious element will also check a stool calprotectin PPI once a day patient seen covering on the weekend regular GI team will resume on Thursday < Samm Elizondo MD - Last Filed: 06/04/24 13:01>
[2024-06-03 13:07] LABS: Glucose Point of Care 204 mg/dl (65-105)
[2024-06-03] MEDS: ENOXAPARIN 40 MG/0.4 ML SYRINGE SUB-Q (13:07)
[2024-06-03] MEDS: ONDANSETRON INJ 4 MG/2 ML VIAL IV PUSH ×3 (13:08→22:33)
[2024-06-03 14:10] LABS: Glucose Point of Care 255 mg/dl (65-105)
[2024-06-03 14:59] LABS: Glucose Point of Care 228 mg/dl (65-105)
[2024-06-03 16:07] LABS: Glucose Point of Care 204 mg/dl (65-105)
[2024-06-03 17:18] LABS: Glucose Point of Care 176 mg/dl (65-105)
[2024-06-03 17:18] LABS: Anion Gap 11 mmol/L (4-12); Blood Urea Nitrogen 15 mg/dL (7-17); Carbon Dioxide 11 mmol/L (22-30); Chloride 112 mmol/L (98-107); Estimated CRCL calculation 83 ml/min; Estimated Glomerular Filt Rate > 60; Glucose 193 mg/dL (65-110); Potassium 4.5 mmol/L (3.4-5.0); Sodium 134 mmol/L (137-145)
[2024-06-03 18:09] LABS: Glucose Point of Care 178 mg/dl (65-105)
[2024-06-03 19:24] LABS: Glucose Point of Care 204 mg/dl (65-105)
[2024-06-03 21:00] LABS: Glucose Point of Care 218 mg/dl (65-105)
[2024-06-03 21:37] LABS: Anion Gap 5 mmol/L (4-12); Blood Urea Nitrogen 11 mg/dL (7-17); Calcium 7.5 mg/dL (8.4-10.2); Carbon Dioxide 17 mmol/L (22-30); Chloride 110 mmol/L (98-107); Estimated CRCL calculation 74 ml/min; Estimated Glomerular Filt Rate > 60; Glucose 235 mg/dL (65-110); Potassium 4.2 mmol/L (3.4-5.0); Sodium 132 mmol/L (137-145)
[2024-06-03] MEDS: LORazepam INJ (*CRX) 2 MG/ML VIAL 0.5 MG IV PUSH (22:26)
[2024-06-03 22:33] LABS: Glucose Point of Care 229 mg/dl (65-105)
[2024-06-03 23:42] LABS: Glucose Point of Care 270 mg/dl (65-105)
[2024-06-04] VITALS (8 sets, daily range): BP systolic 91–122; BP diastolic 44–85; PULSE 81–103; RESP 15–21; TEMP 36.9; O2SAT 98–100
[2024-06-04 00:55] LABS: Glucose Point of Care 229 mg/dl (65-105)
[2024-06-04] MEDS: ACETAMINOPHEN 325 MG TABLET 650 MG PO (01:29)
[2024-06-04] MEDS: KCL 20 MEQ/D5/0.45% SOD CHL 1,000 ML 150 ML IV CONT ×2 (01:54→08:56)
[2024-06-04 02:00] LABS: Anion Gap 4 mmol/L (4-12); Blood Urea Nitrogen 7 mg/dL (7-17); Calcium 6.5 mg/dL (8.4-10.2); Carbon Dioxide 15 mmol/L (22-30); Chloride 115 mmol/L (98-107); Estimated CRCL calculation 96 ml/min; Estimated Glomerular Filt Rate > 60; Glucose 193 mg/dL (65-110); Potassium 3.4 mmol/L (3.4-5.0); Sodium 134 mmol/L (137-145)
[2024-06-04 02:37] LABS: Glucose Point of Care 181 mg/dl (65-105)
[2024-06-04 03:41] LABS: Glucose Point of Care 188 mg/dl (65-105)
[2024-06-04 04:35] LABS: Basophils Percent Auto 0.3 % (0.2-1.2); Eosinophils Absolute Auto 0.1 K/mm3 (0-0.3); Eosinophils Percent Auto 1.8 % (0-4.4); Hematocrit 34.5 % (37.0-47.0); Hemoglobin 11.6 g/dL (12.0-15.0); Immature Granulocyte Absolute 0.02 K/mm3 (0.00-0.031); Immature Granulocyte Percent A 0.3 % (0-0.5); Lymphocytes Absolute Auto 1.64 K/mm3 (0.9-3.2); Lymphocytes Percent Auto 22.5 % (18.3-44.2); Mean Corpuscular HGB Conc 33.6 g/dl (32-36); Mean Corpuscular Hemoglobin 31.5 pg (26-34); Mean Corpuscular Volume 93.8 fl (80-100); Monocytes Absolute Auto 0.8 K/mm3 (0.1-0.6); Monocytes Percent Auto 11.2 % (2.6-8.5); Neutrophils Absolute Auto 4.7 K/mm3 (1.3-6.7); Neutrophils Percent Auto 63.9 % (45.5-73.1); Platelet Count Result 247 k/mm3 (150-375); Red Blood Count 3.68 M/mm3 (4.2-5.4); Red Cell Distribution Width 11.9 % (11.5-14.5); White Blood Count 7.3 K/mm3 (4.5-10.0)
[2024-06-04 04:48] LABS: Alanine Aminotransferase 10 U/L (6-35); Albumin Level 3.2 g/dL (3.5-5.1); Alkaline Phosphatase 70 U/L (38-126); Anion Gap 2 mmol/L (4-12); Aspartate Amino Transferase 20 U/L (14-36); Bilirubin,Total 0.3 mg/dL (0.2-1.3); Blood Urea Nitrogen 7 mg/dL (7-17); Calcium 7.7 mg/dL (8.4-10.2); Carbon Dioxide 19 mmol/L (22-30); Chloride 113 mmol/L (98-107); Estimated CRCL calculation 96 ml/min; Estimated Glomerular Filt Rate > 60; Glucose 182 mg/dL (65-110); Phosphorus 1.3 mg/dL (2.5-4.5); Potassium 3.9 mmol/L (3.4-5.0); Sodium 134 mmol/L (137-145)
[2024-06-04] MEDS: ONDANSETRON INJ 4 MG/2 ML VIAL IV PUSH (04:51)
[2024-06-04 05:41] LABS: Glucose Point of Care 186 mg/dl (65-105)
[2024-06-04 06:33] LABS: Glucose Point of Care 212 mg/dl (65-105)
[2024-06-04 07:51] LABS: Glucose Point of Care 203 mg/dl (65-105)
[2024-06-04] MEDS: PANTOPRAZOLE SODIUM IV 40 MG VIAL IV PUSH (08:44)
[2024-06-04] MEDS: POTASSIUM/PHOSPHORUS/SODIUM 1.5 GM PACKET 1 PACKET PO (08:44)
[2024-06-04] MEDS: FAMOTIDINE 20 MG/2 ML VIAL IV PUSH (08:44)
[2024-06-04] MEDS: INSULIN GLARGINE (*BKC) 100 UNITS/ML 20 UNITS SUB-Q (08:52)
[2024-06-04 08:53] LABS: Glucose Point of Care 249 mg/dl (65-105)
[2024-06-04 09:59] LABS: Glucose Point of Care 205 mg/dl (65-105)
[2024-06-04 11:09] LABS: Glucose Point of Care 265 mg/dl (65-105)
--- NOTE | 2024-06-04 12:03 | PCFNICU ---
ICU Rounding Note: Pt current nutrition is Diabetic consistent carb diet. Nutrition recommendation: No nutrition recommendations. PO intake as tolerated. Last recorded weight is 63.2 kg. Bowel Motility: +1 BM 06/03/23 Labs Reviewed: Hgb 11.6, Hct 34.5, Alb 3.2, Na 134, Cre 0.6, Glu 182 Meds Noted: Zofran, reglan Skin: WNL Additional Notes: Previous note of celiac disease may be an error, no other mention of need for gluten free diet. Continue with PO intake as able. Pt wants to leave. Following daily in ICU rounds. Monitoring diet orders, GI function, weights, labs, plan of care Follow up in 3 days.
[2024-06-04] MEDS: INSULIN ASPART (*BKC) 100 UNITS/ML SUB-Q (12:40)
[2024-06-04 12:44] LABS: Glucose Point of Care 368 mg/dl (65-105)
--- NOTE | 2024-06-04 13:02 | WPDGIPROGNO ---
Progress Note: A&P Assessment and Plan (1) Diabetic ketoacidosis: Code(s): E11.10 - Type 2 diabetes mellitus with ketoacidosis without coma Status: Acute (2) Nausea and vomiting: Qualifiers: Vomiting type: bilious vomiting Qualified Code(s): R11.14 - Bilious vomiting Code(s): R11.2 - Nausea with vomiting, unspecified Status: Acute (3) Diarrhea: Qualifiers: Diarrhea type: presumed infectious Qualified Code(s): R19.7 - Diarrhea, unspecified Code(s): R19.7 - Diarrhea, unspecified Status: Acute Plan I discussed with the patient in detail. Patient partner was also sick with the same symptoms possibility of viral gastroenteritis has been discussed I will advise patient to give a stool sample to rule out any infectious element which has been ordered will also check a stool calprotectin. Patient recently had colonoscopy. I advised the patient that if the stool infection test is negative but shows inflammation that as outpatient she can be worked up for small intestinal diseases. I advised and encouraged the patient to stop marijuana as can trigger cyclic vomiting syndrome also diabetes can also cause problems with nausea and vomiting advanced diet as tolerated continue with the conservative management supportive care with IV fluids hydration nausea vomiting control regular GI team will resume patient care on thursday Subjective Date/time seen: 06/04/24 13:02 Interval history: patient is feeling better according to her the stool is starting more mushy and firmer denies any blood in the stool Review of Systems Constitutional: Constitutional: Denies malaise, Denies weight gain and Denies weight loss Cardiovascular: Cardiovascular: Denies chest pain, Denies dyspnea and Reports other (denies palpitations, denies orthopnea) Respiratory: Respiratory: Denies cough, Denies dyspnea and Reports other (denies sputum production, denies hemoptysis) Gastrointestinal: Gastrointestinal: Reports as per HPI Genitourinary: Genitourinary: Denies hematuria, Denies dysuria and Denies urinary incontinence Musculoskeletal: Musculoskeletal: Reports other (denies extremity edema, denies myalgia) Integumentary/Breasts: Skin/Breast: Denies new lesions and Denies rash Neurologic: Denies dizziness, Denies headache(s) and Denies seizure-like activity Exam Const: General: cooperative; No acute distress Orientation/consciousness: patient oriented x3 HENMT: Head: normal to inspection Neck: Neck: supple Resp: Auscultation: clear to auscultation bilaterally Cardio: Rate: regular rate Rhythm: regular rhythm GI: Inspection: non-distended GI Palp: Yes Soft to palpation, No Tenderness to palpation present (GI) and No Palpable mass present Auscultation: normal bowel sounds Rectal Exam: deferred Skin: General skin exam: no rashes or lesions noted Neuro: General: patient oriented x3 Extrem: General: no edema Objective Data Vital Signs Vital Signs: Vital Signs - 24 hr 06/03/24 14:00 06/03/24 14:00 06/03/24 14:34 Temperature Pulse Rate 98 98 Respiratory Rate 32 H Blood Pressure Pulse Oximetry 99 100 Oxygen Delivery Room Air 06/03/24 16:00 06/03/24 16:00 06/03/24 16:00 Temperature 97.9 F Pulse Rate 92 98 98 Respiratory Rate 32 H 32 H Blood Pressure Pulse Oximetry 99 99 Oxygen Delivery Room Air 06/03/24 16:00 06/03/24 18:00 06/03/24 18:00 Temperature Pulse Rate 84 84 Respiratory Rate 25 H Blood Pressure 116/70 103/70 Pulse Oximetry 98 Oxygen Delivery 06/03/24 20:00 06/03/24 20:00 06/03/24 20:00 Temperature 98.3 F Pulse Rate 82 82 Respiratory Rate 12 Blood Pressure 98/57 L Pulse Oximetry 100 Oxygen Delivery Room Air 06/03/24 22:00 06/03/24 22:00 06/04/24 00:00 Temperature Pulse Rate 93 93 Respiratory Rate 15 Blood Pressure 109/67 Pulse Oximetry 99 Oxygen Delivery Room Air 06/04/24 00:00 06/04/24 00:00 06/04/24 02:00 Temperature 98.5 F Pulse Rate 84 84 81 Respiratory Rate 21 H 15 Blood Pressure 112/72 97/60 L Pulse Oximetry 99 98 Oxygen Delivery 06/04/24 02:00 06/04/24 04:00 06/04/24 04:00 Temperature Pulse Rate 81 84 Respiratory Rate Blood Pressure Pulse Oximetry Oxygen Delivery Room Air 06/04/24 04:00 06/04/24 04:49 06/04/24 06:00 Temperature Pulse Rate 84 81 Respiratory Rate 18 Blood Pressure 91/44 L 104/73 Pulse Oximetry 98 Oxygen Delivery 06/04/24 06:00 06/04/24 08:00 06/04/24 08:00 Temperature Pulse Rate 81 98 Respiratory Rate 16 Blood Pressure 95/61 L Pulse Oximetry 98 Oxygen Delivery Room Air 06/04/24 08:00 06/04/24 10:00 06/04/24 10:00 Temperature Pulse Rate 98 103 H 103 H Respiratory Rate 21 H 18 Blood Pressure 92/52 L 118/85 Pulse Oximetry 99 100 Oxygen Delivery 06/04/24 12:56 Temperature Pulse Rate 95 Respiratory Rate 20 Blood Pressure 122/78 Pulse Oximetry 100 Oxygen Delivery Intake/Output Intake/Output: Intake & Output 06/01/24 06/02/24 06/03/24 06/04/24 23:59 23:59 23:59 23:59 Intake Total 5279.8 1585.0 Output Total 1000 1200 Balance 4279.8 385.0 Meds/Results Medications: Active Medications Generic Name Dose Route Start Last Admin Trade Name Freq PRN Reason Stop Dose Admin Acetaminophen 650 mg 06/03/24 11:16 06/04/24 01:29 Acetaminophen 325 Mg Tablet PO 650 mg Q6H PRN Administration Mild Pain (1-3) or Fever Dextrose 12.5 gm 06/03/24 07:47 Dextrose 50% 25 Gm/50 Ml Syringe IV PUSH PRN PRN Hypoglycemia Protocol Enoxaparin Sodium 40 mg 06/04/24 09:00 06/04/24 08:38 Enoxaparin 40 Mg/0.4 Ml Syringe SUB-Q Not Given DAILY ISMAEL Famotidine 20 mg 06/03/24 09:00 06/04/24 08:44 Famotidine 20 Mg/2 Ml Vial IV PUSH 20 mg Q12HR ISMAEL Administration Glucagon 1 mg 06/03/24 07:47 Glucagon For Inj 1 Mg Vial IM PRN PRN Hypoglycemia Protocol Glucose 15 gm 06/03/24 07:47 Glucose Oral Gel 15 Gm Of Glucse In 37.5 Gm Tube PO PRN PRN Hypoglycemia Protocol Dextrose 1,000 mls @ 100 mls/hr 06/03/24 07:47 Dextrose 5% 1,000 Ml IVPB PRN PRN Hypoglycemia Protocol Insulin Aspart 4 - 8 units 06/04/24 12:00 06/04/24 12:40 Insulin Aspart (*Bkc) 100 Units/Ml SUB-Q 8 units TIDWM ISMAEL Administration Protocol Insulin Glargine 20 units 06/04/24 09:00 06/04/24 08:52 Insulin Glargine (*Bkc) 100 Units/Ml SUB-Q 20 units DAILY ISMAEL Administration Metoclopramide HCl 10 mg 06/03/24 09:45 06/03/24 10:25 Metoclopramide Hcl Inj 10 Mg/2 Ml Vial IV PUSH 10 mg Q6HR PRN Administration Nausea And Vomiting Ondansetron HCl 4 mg 06/03/24 07:51 06/04/24 04:51 Ondansetron Inj 4 Mg/2 Ml Vial IV PUSH 4 mg Q4H PRN Administration Nausea Pantoprazole Sodium 40 mg 06/04/24 09:00 06/04/24 08:44 Pantoprazole Sodium Iv 40 Mg Vial IV PUSH 40 mg QAM ISMAEL Administration Labs Labs: Laboratory Results - last 24 hr 06/03/24 06/03/24 06/03/24 13:04 14:06 14:55 WBC RBC Hgb Hct MCV MCH MCHC RDW Plt Count MPV Immature Gran % (Auto) Neut % (Auto) Lymph % (Auto) [place] % (Auto) Eos % (Auto) Baso % (Auto) Lymph # (Auto) [place] # (Auto) Eos # (Auto) Baso # (Auto) Abs Immat Gran (auto) Absolute Neuts (auto) Absolute Nucleated RBC Nucleated RBC % Sodium Potassium Chloride Carbon Dioxide Anion Gap BUN Creatinine Estim Creat Clear Calc Estimated GFR Glucose POC Capillary Glucose 204 H 255 H 228 H Calcium Phosphorus Magnesium Total Bilirubin AST ALT Alkaline Phosphatase Total Protein Albumin 06/03/24 06/03/24 06/03/24 16:04 16:12 17:16 WBC RBC Hgb Hct MCV MCH MCHC RDW Plt Count MPV Immature Gran % (Auto) Neut % (Auto) Lymph % (Auto) [place] % (Auto) Eos % (Auto) Baso % (Auto) Lymph # (Auto) [place] # (Auto) Eos # (Auto) Baso # (Auto) Abs Immat Gran (auto) Absolute Neuts (auto) Absolute Nucleated RBC Nucleated RBC % Sodium 134 L Potassium 4.5 Chloride 112 H Carbon Dioxide 11 L Anion Gap 11 BUN 15 D Creatinine 0.70 Estim Creat Clear Calc 83 Estimated GFR > 60 Glucose 193 H POC Capillary Glucose 204 H 176 H Calcium 8.0 L Phosphorus Magnesium Total Bilirubin AST ALT Alkaline Phosphatase Total Protein Albumin 06/03/24 06/03/24 06/03/24 18:07 19:20 20:31 WBC RBC Hgb Hct MCV MCH MCHC RDW Plt Count MPV Immature Gran % (Auto) Neut % (Auto) Lymph % (Auto) [place] % (Auto) Eos % (Auto) Baso % (Auto) Lymph # (Auto) [place] # (Auto) Eos # (Auto) Baso # (Auto) Abs Immat Gran (auto) Absolute Neuts (auto) Absolute Nucleated RBC Nucleated RBC % Sodium Potassium Chloride Carbon Dioxide Anion Gap BUN Creatinine Estim Creat Clear Calc Estimated GFR Glucose POC Capillary Glucose 178 H 204 H 218 H Calcium Phosphorus Magnesium Total Bilirubin AST ALT Alkaline Phosphatase Total Protein Albumin 06/03/24 06/03/24 06/03/24 21:23 22:30 23:31 WBC RBC Hgb Hct MCV MCH MCHC RDW Plt Count MPV Immature Gran % (Auto) Neut % (Auto) Lymph % (Auto) [place] % (Auto) Eos % (Auto) Baso % (Auto) Lymph # (Auto) [place] # (Auto) Eos # (Auto) Baso # (Auto) Abs Immat Gran (auto) Absolute Neuts (auto) Absolute Nucleated RBC Nucleated RBC % Sodium 132 L Potassium 4.2 Chloride 110 H Carbon Dioxide 17 L Anion Gap 5 BUN 11 Creatinine 0.80 Estim Creat Clear Calc 74 Estimated GFR > 60 Glucose 235 H POC Capillary Glucose 229 H 270 H Calcium 7.5 L Phosphorus Magnesium Total Bilirubin AST ALT Alkaline Phosphatase Total Protein Albumin 06/04/24 06/04/24 06/04/24 00:48 01:24 02:34 WBC RBC Hgb Hct MCV MCH MCHC RDW Plt Count MPV Immature Gran % (Auto) Neut % (Auto) Lymph % (Auto) [place] % (Auto) Eos % (Auto) Baso % (Auto) Lymph # (Auto) [place] # (Auto) Eos # (Auto) Baso # (Auto) Abs Immat Gran (auto) Absolute Neuts (auto) Absolute Nucleated RBC Nucleated RBC % Sodium 134 L Potassium 3.4 Chloride 115 H Carbon Dioxide 15 L Anion Gap 4 BUN 7 Creatinine 0.60 L Estim Creat Clear Calc 96 Estimated GFR > 60 Glucose 193 H POC Capillary Glucose 229 H 181 H Calcium 6.5 L Phosphorus Magnesium Total Bilirubin AST ALT Alkaline Phosphatase Total Protein Albumin 06/04/24 06/04/24 06/04/24 03:38 04:30 05:35 WBC 7.3 RBC 3.68 L Hgb 11.6 L Hct 34.5 L MCV 93.8 MCH 31.5 MCHC 33.6 RDW 11.9 Plt Count 247 MPV 9.0 Immature Gran % (Auto) 0.3 Neut % (Auto) 63.9 Lymph % (Auto) 22.5 [place] % (Auto) 11.2 H Eos % (Auto) 1.8 Baso % (Auto) 0.3 Lymph # (Auto) 1.64 [place] # (Auto) 0.8 H Eos # (Auto) 0.1 Baso # (Auto) 0.0 Abs Immat Gran (auto) 0.02 Absolute Neuts (auto) 4.7 Absolute Nucleated RBC 0.000 Nucleated RBC % 0.0 Sodium 134 L Potassium 3.9 Chloride 113 H Carbon Dioxide 19 L Anion Gap 2 L BUN 7 Creatinine 0.60 L Estim Creat Clear Calc 96 Estimated GFR > 60 Glucose 182 H POC Capillary Glucose 188 H 186 H Calcium 7.7 L Phosphorus 1.3 L Magnesium 2.0 Total Bilirubin 0.3 AST 20 ALT 10 Alkaline Phosphatase 70 Total Protein 6.0 L Albumin 3.2 L 06/04/24 06/04/24 06/04/24 06:30 07:49 08:34 WBC RBC Hgb Hct MCV MCH MCHC RDW Plt Count MPV Immature Gran % (Auto) Neut % (Auto) Lymph % (Auto) [place] % (Auto) Eos % (Auto) Baso % (Auto) Lymph # (Auto) [place] # (Auto) Eos # (Auto) Baso # (Auto) Abs Immat Gran (auto) Absolute Neuts (auto) Absolute Nucleated RBC Nucleated RBC % Sodium Potassium Chloride Carbon Dioxide Anion Gap BUN Creatinine Estim Creat Clear Calc Estimated GFR Glucose POC Capillary Glucose 212 H 203 H 249 H Calcium Phosphorus Magnesium Total Bilirubin AST ALT Alkaline Phosphatase Total Protein Albumin 06/04/24 06/04/24 06/04/24 09:54 11:07 12:37 WBC RBC Hgb Hct MCV MCH MCHC RDW Plt Count MPV Immature Gran % (Auto) Neut % (Auto) Lymph % (Auto) [place] % (Auto) Eos % (Auto) Baso % (Auto) Lymph # (Auto) [place] # (Auto) Eos # (Auto) Baso # (Auto) Abs Immat Gran (auto) Absolute Neuts (auto) Absolute Nucleated RBC Nucleated RBC % Sodium Potassium Chloride Carbon Dioxide Anion Gap BUN Creatinine Estim Creat Clear Calc Estimated GFR Glucose POC Capillary Glucose 205 H 265 H 368 H Calcium Phosphorus Magnesium Total Bilirubin AST ALT Alkaline Phosphatase Total Protein Albumin
--- NOTE | 2024-06-04 13:28 | PC.NURSE ---
This RN gave report to Shannon GUERRERO and transferred the patient to [facility] [place] room 302.
--- NOTE | 2024-06-04 14:25 | PM.DS ---
DS: Admitting Diagnosis Discharge Date 06/04/24 Admitting Diagnosis DKA DS: Discharge Diagnosis Discharge Diagnosis (1) Diabetic ketoacidosis: Code(s): E11.10 - Type 2 diabetes mellitus with ketoacidosis without coma Status: Acute (2) Acute kidney injury: Code(s): N17.9 - Acute kidney failure, unspecified Status: Acute (3) Diarrhea: Qualifiers: Diarrhea type: presumed infectious Qualified Code(s): R19.7 - Diarrhea, unspecified Code(s): R19.7 - Diarrhea, unspecified Status: Acute DS: Summary Hospital Course Hospital Course: This is a 19-year-old female with history of type 1 diabetes mellitus with diabetic polyneuropathy, diabetic ketoacidosis, seizure disorder, psychogenic nonepileptic seizures, hypothyroidism, bipolar disorder, anxiety, and depression with history of suicide attempt who presented to the emergency department with complaints high blood sugar. She gives a 2 day history of nausea, vomiting, diarrhea, subjective fevers, fatigue, and myalgias. Her glucose is becoming increasingly elevated. Other members in her household have had similar symptoms and her daughter was also sick several weeks ago with RSV and pneumonia. She denies sinus congestion, sore throat, cough, hematemesis, melena, hematochezia, and dysuria. In the ED: She was tachycardic on arrival though the remainder of her vital signs were stable. Labs were significant for sodium of 127, potassium 4.1, chloride 92, carbon dioxide 13, anion gap 22, BUN 31, creatinine 1.20, glucose 449. Urinalysis was positive for 2+ protein, 3+ glucose, and 4+ ketones. Respiratory panel was negative. She was given 2 L IV fluid bolus, ondansetron, and was started on insulin drip and she is being admitted in this setting for further treatment of DKA. Patient was in ICU and was treated as per DKA protocol on 0 0 3 and 0 0 4. Patient was downgraded to IMU status and was notified to see the patient. Nurse called and reported patient wants to leave AMA in spite of explaining all the risks including the . I personally visited the patient and explained the consequences of leaving AMA. Patient understands and wants to leave since her kids will be alone in the home since there is no [place] for tomorrow. Status at Discharge Cognitive/behavioral status at discharge: AMA Time Spent with Patient Time attestation: Total time spent providing and/or coordinating discharge services:45 mins DS: Data Data Completed and Pending Labs on day of discharge: Labs from last 24 hours 06/04/24 06/04/24 06/04/24 12:37 11:07 09:54 WBC RBC Hgb Hct MCV MCH MCHC RDW Plt Count MPV Immature Gran % (Auto) Neut % (Auto) Lymph % (Auto) [place] % (Auto) Eos % (Auto) Baso % (Auto) Lymph # (Auto) [place] # (Auto) Eos # (Auto) Baso # (Auto) Abs Immat Gran (auto) Absolute Neuts (auto) Absolute Nucleated RBC Nucleated RBC % Sodium Potassium Chloride Carbon Dioxide Anion Gap BUN Creatinine Estim Creat Clear Calc Estimated GFR Glucose POC Capillary Glucose 368 H 265 H 205 H Calcium Phosphorus Magnesium Total Bilirubin AST ALT Alkaline Phosphatase Total Protein Albumin 06/04/24 06/04/24 06/04/24 08:34 07:49 06:30 WBC RBC Hgb Hct MCV MCH MCHC RDW Plt Count MPV Immature Gran % (Auto) Neut % (Auto) Lymph % (Auto) [place] % (Auto) Eos % (Auto) Baso % (Auto) Lymph # (Auto) [place] # (Auto) Eos # (Auto) Baso # (Auto) Abs Immat Gran (auto) Absolute Neuts (auto) Absolute Nucleated RBC Nucleated RBC % Sodium Potassium Chloride Carbon Dioxide Anion Gap BUN Creatinine Estim Creat Clear Calc Estimated GFR Glucose POC Capillary Glucose 249 H 203 H 212 H Calcium Phosphorus Magnesium Total Bilirubin AST ALT Alkaline Phosphatase Total Protein Albumin 06/04/24 06/04/24 06/04/24 05:35 04:30 03:38 WBC 7.3 RBC 3.68 L Hgb 11.6 L Hct 34.5 L MCV 93.8 MCH 31.5 MCHC 33.6 RDW 11.9 Plt Count 247 MPV 9.0 Immature Gran % (Auto) 0.3 Neut % (Auto) 63.9 Lymph % (Auto) 22.5 [place] % (Auto) 11.2 H Eos % (Auto) 1.8 Baso % (Auto) 0.3 Lymph # (Auto) 1.64 [place] # (Auto) 0.8 H Eos # (Auto) 0.1 Baso # (Auto) 0.0 Abs Immat Gran (auto) 0.02 Absolute Neuts (auto) 4.7 Absolute Nucleated RBC 0.000 Nucleated RBC % 0.0 Sodium 134 L Potassium 3.9 Chloride 113 H Carbon Dioxide 19 L Anion Gap 2 L BUN 7 Creatinine 0.60 L Estim Creat Clear Calc 96 Estimated GFR > 60 Glucose 182 H POC Capillary Glucose 186 H 188 H Calcium 7.7 L Phosphorus 1.3 L Magnesium 2.0 Total Bilirubin 0.3 AST 20 ALT 10 Alkaline Phosphatase 70 Total Protein 6.0 L Albumin 3.2 L 06/04/24 06/04/24 06/04/24 02:34 01:24 00:48 WBC RBC Hgb Hct MCV MCH MCHC RDW Plt Count MPV Immature Gran % (Auto) Neut % (Auto) Lymph % (Auto) [place] % (Auto) Eos % (Auto) Baso % (Auto) Lymph # (Auto) [place] # (Auto) Eos # (Auto) Baso # (Auto) Abs Immat Gran (auto) Absolute Neuts (auto) Absolute Nucleated RBC Nucleated RBC % Sodium 134 L Potassium 3.4 Chloride 115 H Carbon Dioxide 15 L Anion Gap 4 BUN 7 Creatinine 0.60 L Estim Creat Clear Calc 96 Estimated GFR > 60 Glucose 193 H POC Capillary Glucose 181 H 229 H Calcium 6.5 L Phosphorus Magnesium Total Bilirubin AST ALT Alkaline Phosphatase Total Protein Albumin 06/03/24 06/03/24 06/03/24 23:31 22:30 21:23 WBC RBC Hgb Hct MCV MCH MCHC RDW Plt Count MPV Immature Gran % (Auto) Neut % (Auto) Lymph % (Auto) [place] % (Auto) Eos % (Auto) Baso % (Auto) Lymph # (Auto) [place] # (Auto) Eos # (Auto) Baso # (Auto) Abs Immat Gran (auto) Absolute Neuts (auto) Absolute Nucleated RBC Nucleated RBC % Sodium 132 L Potassium 4.2 Chloride 110 H Carbon Dioxide 17 L Anion Gap 5 BUN 11 Creatinine 0.80 Estim Creat Clear Calc 74 Estimated GFR > 60 Glucose 235 H POC Capillary Glucose 270 H 229 H Calcium 7.5 L Phosphorus Magnesium Total Bilirubin AST ALT Alkaline Phosphatase Total Protein Albumin 06/03/24 06/03/24 06/03/24 20:31 19:20 18:07 WBC RBC Hgb Hct MCV MCH MCHC RDW Plt Count MPV Immature Gran % (Auto) Neut % (Auto) Lymph % (Auto) [place] % (Auto) Eos % (Auto) Baso % (Auto) Lymph # (Auto) [place] # (Auto) Eos # (Auto) Baso # (Auto) Abs Immat Gran (auto) Absolute Neuts (auto) Absolute Nucleated RBC Nucleated RBC % Sodium Potassium Chloride Carbon Dioxide Anion Gap BUN Creatinine Estim Creat Clear Calc Estimated GFR Glucose POC Capillary Glucose 218 H 204 H 178 H Calcium Phosphorus Magnesium Total Bilirubin AST ALT Alkaline Phosphatase Total Protein Albumin 06/03/24 06/03/24 06/03/24 17:16 16:12 16:04 WBC RBC Hgb Hct MCV MCH MCHC RDW Plt Count MPV Immature Gran % (Auto) Neut % (Auto) Lymph % (Auto) [place] % (Auto) Eos % (Auto) Baso % (Auto) Lymph # (Auto) [place] # (Auto) Eos # (Auto) Baso # (Auto) Abs Immat Gran (auto) Absolute Neuts (auto) Absolute Nucleated RBC Nucleated RBC % Sodium 134 L Potassium 4.5 Chloride 112 H Carbon Dioxide 11 L Anion Gap 11 BUN 15 D Creatinine 0.70 Estim Creat Clear Calc 83 Estimated GFR > 60 Glucose 193 H POC Capillary Glucose 176 H 204 H Calcium 8.0 L Phosphorus Magnesium Total Bilirubin AST ALT Alkaline Phosphatase Total Protein Albumin 06/03/24 14:55 WBC RBC Hgb Hct MCV MCH MCHC RDW Plt Count MPV Immature Gran % (Auto) Neut % (Auto) Lymph % (Auto) [place] % (Auto) Eos % (Auto) Baso % (Auto) Lymph # (Auto) [place] # (Auto) Eos # (Auto) Baso # (Auto) Abs Immat Gran (auto) Absolute Neuts (auto) Absolute Nucleated RBC Nucleated RBC % Sodium Potassium Chloride Carbon Dioxide Anion Gap BUN Creatinine Estim Creat Clear Calc Estimated GFR Glucose POC Capillary Glucose 228 H Calcium Phosphorus Magnesium Total Bilirubin AST ALT Alkaline Phosphatase Total Protein Albumin Discharge Plan Discharge Attending physician on discharge: Sabas Dickerson Consulting providers: Diego Castro; Stephany Quiles Discharging Clinician: Sabas Dickerson Patient Disposition: Left Against Medical Advice Patient Language: Swazi Discharge Medications: No Action (DME) OneTouch Verio test strips Strip MISCELLANEOUS (DME) Dexcom G6 Sensor Device MISCELLANEOUS insulin lispro [Humalog U-100 Insulin] 100 unit/mL solution See Rx Instructions .ROUTE .COMPLEX Rx Instructions: per sliding scale 1 unit per 10 carbs insulin glargine [Basaglar KwikPen U-100 Insulin] 100 unit/mL (3 mL) insulin pen 16 unit SUBCUT DAILY Date of admission: 06/03/24 07:51 Primary Care Provider: Jorden Plascencia Admitting Provider: Sbaas Dickerson Attending physician on admission: Sabas Dickerson Condition: Serious
--- NOTE | 2024-06-04 15:17 | WPDCNINT ---
Assessment and Plan Assessment and plan (1) Diabetic ketoacidosis: Code(s): E11.10 - Type 2 diabetes mellitus with ketoacidosis without coma Status: Acute Assessment and Plan: 06/03: Patient presented with nausea, vomiting, diarrhea, elevated blood sugars, found to be diabetic ketoacidosis, was given 3 L IV fluid bolus and started on insulin infusion per DKA protocol -06/04: this morning anion gap is closed, CO2 is much improved, will transition to long-acting insulin and sliding scale insulin -will start diabetic diet (2) Type 1 diabetes: Qualifiers: Diabetes mellitus complication status: with hyperglycemia Qualified Code(s): E10.65 - Type 1 diabetes mellitus with hyperglycemia Code(s): E10.9 - Type 1 diabetes mellitus without complications Status: Chronic Assessment and Plan: Patient has a history of diabetes, on Lantus at home and pre meal NovoLog -hemoglobin A1c this admission is 11.1 -patient will have to take care of her diabetes more seriously (3) HERNRY (acute kidney injury): Code(s): N17.9 - Acute kidney failure, unspecified Status: Acute Assessment and Plan: Patient presented with creatinine of 1.20 on admission -received adequate IV fluid -good urine output -creatinine this morning is 0.60. -continue to monitor renal function, electrolytes and urine out (4) Diarrhea: Qualifiers: Diarrhea type: presumed infectious Qualified Code(s): R19.7 - Diarrhea, unspecified Code(s): R19.7 - Diarrhea, unspecified Status: Acute Assessment and Plan: GI was consulted for diarrhea and coli, appreciate the evaluation and recommendations, please see GI note for further recommendation Plan DVT prophylaxis: Lovenox Stress ulcer prophylaxis: Famotidine Nutrition: Diabetic diet Code Status: Full code Critical Care Time Spent: 46 minutes Due to a high probability of clinically significant, life threatening deterioration, the patient required my highest level of preparedness to intervene emergently and I personally spent this critical care time directly and personally managing the patient. This critical care time included obtaining a history; examining the patient; pulse oximetry; ordering and review of studies; arranging urgent treatment with development of a management plan; evaluation of patient's response to treatment; frequent reassessment; and discussions with other providers. It was exclusive of separately billable procedures and treating other patients and teaching time. Please see Assessment and Plan section and the rest of the note for further information on patient assessment and treatment This dictation may have been done utilizing a voice recognition system. Attempts have been made to correct errors. However, there may be uncorrected grammatical, spelling, and recognitions errors present. Sole Conforming Machine Operator Consult Note Consult date: 06/04/24 Reason for consult: Diabetic ketoacidosis, hyperglycemia, nausea, vomiting HPI: Shama Godfrey is a 19 year old female with past medical history of diabetes type 1, history of diabetic ketoacidosis, diabetic polyneuropathy, hypothyroidism, psychogenic nonepileptic seizures, bipolar disorder, suicide attempt presented the ED on 06/03/2024 with complains of 2 day history of nausea, vomiting, diarrhea, subjective fevers, fatigue and myalgias. Blood sugars were elevated at home. Patient fell that she had GI howard as other people in her house old had similar symptoms. Her daughter was also sick with RSV and pneumonia several weeks back. Patient denies any sinus congestion, sore throat, cough, hematemesis, melena or dysuria. In the ER she was found to be tachycardic, elevated blood sugars of 440 night, urine was positive for ketones, proteins and glucose. She was given 3 L of IV fluid bolus, started on insulin infusion per DKA protocol and transferred to the ICU for further management Patient seen and examined this morning in the ICU, is awake, alert, denies any shortness of breath, chest pain, nausea, vomiting, abdominal pain. States she feels much better. Remains on insulin infusion per DKA protocol. Urine output has been adequate, patient is afebrile 6 Review of Systems Review of Systems: All systems reviewed & are unremarkable except as noted in HPI and below PMFSH Past Medical History Medical History (Updated 06/03/24 @ 13:12 by Yumiko Vivar PA-C) Suicide attempt (11/2023) Depression Diabetic polyneuropathy Hypothyroidism Psychogenic nonepileptic seizure Diabetic ketoacidosis Bipolar 1 disorder Anxiety Seizure disorder Type 1 diabetes Surgical History Surgical History (Updated 06/03/24 @ 13:10 by Yumiko Vivar PA-C) History of appendectomy History of colonoscopy (05/2024) For evaluation of diarrhea- normal colonoscopy to depth of insertion. Left and right colon biopsies were without evidence of microscopic colitis. Family History Family History Sibling Asthma Mother Hypertension Social History Social History (Updated 06/03/24 @ 13:11 by Yumiko Vivar PA-C) Social History: Surrogate medical decision maker: Denton Saucedo significant other ([phone]). Code status: Full code. Smoking status: Never smoker Second hand tobacco smoke exposure: No Alcohol intake: never Substance use: current Substance use type: marijuana Do You Feel Safe in your Home?: Yes Lack of Transportation: No Lack of Food: Never True Current Housing: Decline to Answer Concerned About Future Housing: Decline to Answer Difficulty Paying Gas/Electric Bills: Decline to Answer Difficulty Paying for Meds: Decline to Answer Currently Unemployed: Decline to Answer Education: High School Diploma/GED Difficulty w/ Childcare or Family Care: Decline to Answer Additional living arrangements comments: Lives with significant other and daughter in [place]. Additional occupation/education comments: Unemployed. Spiritual care concerns: No Meds Home Medications and Allergies Home Medications ?Medication ?Instructions ?Recorded ?Confirmed ?Type blood sugar diagnostic (OneTouch 11/30/23 06/03/24 History Verio test strips) blood-glucose sensor (Dexcom G6 11/30/23 06/03/24 History Sensor device) insulin glargine 100 unit/mL (3 16 unit subcut DAILY 04/11/24 06/03/24 History mL) subcutaneous pen (Basaglar KwikPen U-100 Insulin) insulin lispro 100 unit/mL See Rx Instructions .Route .COMPLEX 04/11/24 06/03/24 History subcutaneous solution (Humalog U-100 Insulin) Allergies Allergy/AdvReac Type Severity Reaction Status Date / Time amoxicillin Allergy Hives Verified 05/03/24 09:15 ceftriaxone Allergy Anaphylaxis Verified 05/03/24 09:15 Vital Signs Vital Signs - 24 hr 06/03/24 16:00 06/03/24 16:00 06/03/24 16:00 Temperature 97.9 F Pulse Rate 92 98 98 Respiratory Rate 32 H 32 H Blood Pressure Pulse Oximetry 99 99 Oxygen Delivery Room Air 06/03/24 16:00 06/03/24 18:00 06/03/24 18:00 Temperature Pulse Rate 84 84 Respiratory Rate 25 H Blood Pressure 116/70 103/70 Pulse Oximetry 98 Oxygen Delivery 06/03/24 20:00 06/03/24 20:00 06/03/24 20:00 Temperature 98.3 F Pulse Rate 82 82 Respiratory Rate 12 Blood Pressure 98/57 L Pulse Oximetry 100 Oxygen Delivery Room Air 06/03/24 22:00 06/03/24 22:00 06/04/24 00:00 Temperature Pulse Rate 93 93 Respiratory Rate 15 Blood Pressure 109/67 Pulse Oximetry 99 Oxygen Delivery Room Air 06/04/24 00:00 06/04/24 00:00 06/04/24 02:00 Temperature 98.5 F Pulse Rate 84 84 81 Respiratory Rate 21 H 15 Blood Pressure 112/72 97/60 L Pulse Oximetry 99 98 Oxygen Delivery 06/04/24 02:00 06/04/24 04:00 06/04/24 04:00 Temperature Pulse Rate 81 84 Respiratory Rate Blood Pressure Pulse Oximetry Oxygen Delivery Room Air 06/04/24 04:00 06/04/24 04:49 06/04/24 06:00 Temperature Pulse Rate 84 81 Respiratory Rate 18 Blood Pressure 91/44 L 104/73 Pulse Oximetry 98 Oxygen Delivery 06/04/24 06:00 06/04/24 08:00 06/04/24 08:00 Temperature Pulse Rate 81 98 Respiratory Rate 16 Blood Pressure 95/61 L Pulse Oximetry 98 Oxygen Delivery Room Air 06/04/24 08:00 06/04/24 10:00 06/04/24 10:00 Temperature Pulse Rate 98 103 H 103 H Respiratory Rate 21 H 18 Blood Pressure 92/52 L 118/85 Pulse Oximetry 99 100 Oxygen Delivery 06/04/24 12:56 Temperature Pulse Rate 95 Respiratory Rate 20 Blood Pressure 122/78 Pulse Oximetry 100 Oxygen Delivery Exam Narrative: General: Young female, pleasant in no acute distress HEENT:? Pupils equal and reactive, sclera is clear, moist oral mucosa Neck:? Supple Respiratory:? Clear to auscultation bilaterally, no wheeze Cardiac:? S1-S2 normal, regular rate and rhythm Abdomen:? Soft, non tender, non distended, normoactive bowel sounds Extremities:? No edema, palpable pedal pulses Neuro:? Patient is awake, alert, oriented, nonfocal Skin:? Warm and dry Psych:? Normal mentation and affect Results Labs 06/04/24 04:30 06/04/24 04:30 Labs: Short CBC 01/04/25 Range/Units 04:30 WBC 7.3 (4.5-10.0) K/mm3 Hgb 11.6 L (12.0-15.0) g/dL Hct 34.5 L (37.0-47.0) % Plt Count 247 (150-375) k/mm3 BMP 06/03/24 06/03/24 06/04/24 16:12 21:23 01:24 Sodium 134 L 132 L 134 L Potassium 4.5 4.2 3.4 Chloride 112 H 110 H 115 H Carbon Dioxide 11 L 17 L 15 L BUN 15 D 11 7 Creatinine 0.70 0.80 0.60 L Glucose 193 H 235 H 193 H Calcium 8.0 L 7.5 L 6.5 L 06/04/24 04:30 Sodium 134 L Potassium 3.9 Chloride 113 H Carbon Dioxide 19 L BUN 7 Creatinine 0.60 L Glucose 182 H Calcium 7.7 L Liver Function 06/04/24 Range/Units 04:30 Total Bilirubin 0.3 (0.2-1.3) mg/dL AST 20 (14-36) U/L ALT 10 (6-35) U/L Alkaline Phosphatase 70 (38-126) U/L Albumin 3.2 L (3.5-5.1) g/dL Quality VTE Prophylaxis VTE prophylaxis: pharmacologic ordered Hospitalist MIPS Advance Care Plan I have confirmed that the patient's Advanced Care Plan is present, code status is documented, or surrogate decision maker is listed in patient medical record.: Yes Medication Reconciliation I have utilized all available resources to obtain, update and review the patients current medications (includes all prescriptions, OTC, herbals, cannabis, and nutritional supplements).: Yes
== END 2024-06-04 14:03 | disposition left against medical advice (07) ==
LOC: ANHED 07:48 → ANHICU 09:07 → ANH3MEDSUR 06-04 13:28
PROVIDERS: Emergency Medicine; Internal Medicine; Admitting Provider General Practice; Emergency Provider Student in an Organized Health Care Education/Training Program; PCP Emergency Medicine; Visit Provider General Practice
DX: E10.10 Type 1 diabetes mellitus with ketoacidosis without coma (principal); N17.9 Acute kidney failure, unspecified; R19.7 Diarrhea, unspecified; R11.14 Bilious vomiting; R93.3 Abnormal findings on diagnostic imaging of other parts of digestive tract; K20.90 Esophagitis, unspecified without bleeding; E10.42 Type 1 diabetes mellitus with diabetic polyneuropathy; F31.9 Bipolar disorder, unspecified; F41.9 Anxiety disorder, unspecified; E03.9 Hypothyroidism, unspecified; F44.5 Conversion disorder with seizures or convulsions; F12.90 Cannabis use, unspecified, uncomplicated; Z20.822 Contact with and (suspected) exposure to COVID-19; Z79.4 Long term (current) use of insulin; Z88.1 Allergy status to other antibiotic agents; Z91.51 Personal history of suicidal behavior
CPT/HCPCS: 36415; 80048; 80053; 81001; 81025; 82550; 82948; 83036; 83690; 83735; 84100; 85025; 87637; 96365; 96366; 96368; 96372; 96375; 96376; 99285; A9270; G0378; G0379; J1650; J1815; J2060; J2405; J2470; J2765; J3480; J7030

== ENCOUNTER 2024-11-22 08:43 | Outpatient (CLI) | payer OTHER, SELFPAY ==
--- NOTE | 2024-11-22 | EST_ITS ---
Patient Info Name: Shama Godfrey Age: 19 years : 2005 Gender: Female Ht: 61 in Wt: 135 lbs BSA: 1.64 m2 Exam Date: 11/22/2024 10:02 AM Patient Status: O Admit Date: 11/22/2024 Exam Type: CA stress test treadmill A treadmill exercise stress test was performed. Staff Attending Provider: Damien Beal DO Exercise Technologist: Christina Wick Exercise Physician: Damien Beal DO Summary 1. 1. Negative Jefry exercise stress test for ischemic ST changes by ECG criteria. 2. 2. Good functional capacity, achieving 10 METs of workload. 3. 3. Hypertensive response to exercise. 4. 4. Appropriate HR response to exercise. 5. 5. Appropriate HR recovery at 1 minute post exercise. 6. 6. No imaging with stress testing. 7. 7. Patient informed of the above results. Protocol: Jefry Stress ECG Details Stage: REST Duration (min): 0 min : 56 sec Speed (mph): 0.0 Grade (%): 0 HR (bpm): 99 SBP (mmHg): 113 DBP (mmHg): 82 METS: --- Stage: REST Duration (min): 4 min : 21 sec Speed (mph): 0.0 Grade (%): 0 HR (bpm): 101 SBP (mmHg): 113 DBP (mmHg): 82 METS: --- Stage: STAGE 1 Duration (min): 1 min : 0 sec Speed (mph): 1.7 Grade (%): 10 HR (bpm): 118 SBP (mmHg): 113 DBP (mmHg): 82 METS: --- Stage: STAGE 1 Duration (min): 2 min : 0 sec Speed (mph): 1.7 Grade (%): 10 HR (bpm): 134 SBP (mmHg): 113 DBP (mmHg): 82 METS: --- Stage: STAGE 1 Duration (min): 3 min : 0 sec Speed (mph): 1.7 Grade (%): 10 HR (bpm): 142 SBP (mmHg): 156 DBP (mmHg): 82 METS: --- Stage: STAGE 2 Duration (min): 1 min : 0 sec Speed (mph): 2.5 Grade (%): 12 HR (bpm): 143 SBP (mmHg): 156 DBP (mmHg): 82 METS: --- Stage: STAGE 2 Duration (min): 2 min : 0 sec Speed (mph): 2.5 Grade (%): 12 HR (bpm): 146 SBP (mmHg): 156 DBP (mmHg): 82 METS: --- Stage: STAGE 2 Duration (min): 3 min : 0 sec Speed (mph): 2.5 Grade (%): 12 HR (bpm): 145 SBP (mmHg): 156 DBP (mmHg): 82 METS: --- Stage: STAGE 3 Duration (min): 1 min : 0 sec Speed (mph): 3.4 Grade (%): 14 HR (bpm): 162 SBP (mmHg): 166 DBP (mmHg): 54 METS: --- Stage: STAGE 3 Duration (min): 2 min : 0 sec Speed (mph): 3.4 Grade (%): 14 HR (bpm): 175 SBP (mmHg): 166 DBP (mmHg): 54 METS: --- Stage: STAGE 3 Duration (min): 2 min : 30 sec Speed (mph): 3.4 Grade (%): 14 HR (bpm): 181 SBP (mmHg): 166 DBP (mmHg): 54 METS: --- Stage: RECOVERY Duration (min): 0 min : 29 sec Speed (mph): 0.0 Grade (%): 0 HR (bpm): 172 SBP (mmHg): 208 DBP (mmHg): 82 METS: --- Stage: RECOVERY Duration (min): 1 min : 29 sec Speed (mph): 0.0 Grade (%): 0 HR (bpm): 141 SBP (mmHg): 208 DBP (mmHg): 82 METS: --- Stage: RECOVERY Duration (min): 2 min : 29 sec Speed (mph): 0.0 Grade (%): 0 HR (bpm): 142 SBP (mmHg): 208 DBP (mmHg): 82 METS: --- Stage: RECOVERY Duration (min): 3 min : 14 sec Speed (mph): 0.0 Grade (%): 0 HR (bpm): 153 SBP (mmHg): 137 DBP (mmHg): 87 METS: --- Rest HR: 101 bpm Peak HR: 182 bpm Rest Sys BP: 113 mmHg Peak Sys BP: 208 mmHg Max Pred HR: 200 bpm % Max Pred HR: 91 % Target HR: 170 bpm Max RPP: 37,856 bpm*mmHg Garvey Score: -6 BP Response: Patient exhibited a hypertensive response with stress Termination Reason: Reached target heart rate or workload Cardiac Symptoms: Shortness of breath Max ST Seg Deviation: 2.80 mm Total Time: 8 min : 30 sec Rest Hull BP: 82 mmHg Peak [place] BP: 82 mmHg Angina Score: None Total METS: 10.3 Resting ECG Sinus rhythm. Stress ECG No ST changes. Arrhythmias None. Report Signatures
--- NOTE | 2024-11-22 08:58 | ECHO_ITS ---
Patient Info Name: Shama Godfrey Age: 19 years : 2005 Gender: Female Ht: 61 in Wt: 135 lbs BSA: 1.64 m2 HR: 102 bpm BP: 124 / 88 mmHg Technical Quality: Excellent Exam Date: 11/22/2024 9:09 AM Patient Status: O Admit Date: 11/22/2024 Exam Type: CA echo doppler color flow Complete two-dimensional, color flow and Doppler transthoracic echocardiogram is performed. Directional Bore Operator: Madeleine Paniagua Attending Provider: Damien Beal DO Summary 1. Complete two-dimensional, color flow and Doppler transthoracic echocardiogram is performed. 2. Left ventricular chamber dimension is normal. 3. Left ventricular systolic function is normal, estimated at 60-65. 4. The left ventricular diastolic function is normal. 5. E/e' 7 is not elevated. Left Ventricle E/e' 7 is not elevated. Left ventricular chamber dimension is normal. Left ventricular systolic function is normal, estimated at 60-65. The left ventricular diastolic function is normal. Right Ventricle Right ventricular chamber dimension is normal. Right ventricular systolic function is normal and with normal TAPSE 2.6 cm. Left Atria Left atrial chamber dimension is normal. Right Atria Right atrial chamber dimension is normal. Aortic Valve The aortic valve is trileaflet. There is no aortic valve stenosis. There is no aortic valve regurgitation. Pulmonic Valve There is no pulmonic regurgitation. Mitral Valve There is no mitral valve stenosis. There is no mitral valve regurgitation. Tricuspid Valve There is no tricuspid valve regurgitation. Pericardium/Pleural There is no pericardial effusion. Inferior Vena Cava Normal inferior vena cava with >50% collapse upon inspiration consistent with normal right atrial pressure, 5 mmHg. Aorta The aortic root size at the sinus of Valsalva is normal. Left Ventricular Outflow Tract Name Value Normal LVOT 2D LVOT Diameter 15.8 mm LVOT Doppler LVOT Peak Velocity 116 cm/s LVOT Peak Gradient 5 mmHg LVOT Mean Gradient 3 mmHg LVOT VTI 24 cm LVOT Stroke Volume 47 ml LVOT CO 4.7 l/min LVOT CI 2.9 l/min/m2 Pulmonic Valve Name Value Normal RVOT Doppler RVOT Peak Velocity 86 cm/s RVOT Peak Gradient 3 mmHg PV Doppler PV Peak Velocity 125 cm/s PV Peak Gradient 6 mmHg Mitral Valve Name Value Normal MV Doppler MV Peak Gradient 7 mmHg MV Mean Gradient 4 mmHg MV Area (Cont Eq VTI) 1.7 cm2 MV Diastolic Function MV E Peak Velocity 123 cm/s 60-126 MV A Peak Velocity 110 cm/s 18-67 MV E/A 1.1 1.2-3.6 MV Decel Time (PW) 226 ms MV Annular TDI MV E/e' (Septal) 10.8 3.7-10.1 MV E/e' (Lateral) 5.8 2.0-8.0 MV E/e' (Average) 8.3 2.9-8.6 Tricuspid Valve Name Value Normal Estimated PAP/RSVP RA Pressure 5 mmHg Aortic Valve Name Value Normal AV Doppler AV Peak Velocity 158 cm/s AV Peak Gradient 10 mmHg AV Area (Cont Eq Chuckie) 1.4 cm2 AV DI (Chuckie) 0.73 AV Regurgitation 2D LVOT Area 2.0 cm2 Ventricles Name Value Normal LV Dimensions 2D/MM IVS Diastolic Thickness (2D) 7.6 mm 6.1-9.9 LVID Diastole (2D) 40.2 mm 42.7-55.0 LVIW Diastolic Thickness (2D) 7.4 mm 6.2-9.4 LVID Systole (2D) 28.0 mm 26.8-36.8 LVOT Diameter 15.8 mm LV Mass (2D Cubed) 86.31 g 82.28-148.95 LV Mass Index (2D Cubed) 53 g/m2 Relative Wall Thickness (2D) 0.37 LV Fractional Shortening/Ejection Fraction 2D/MM LV Fractional Shortening (2D) 30 % 28-42 LV EF (2D Teichholz) 58 % LV Diastolic Volume (4C MOD) 85 ml LV EF (4C MOD) 69 % LV Diastolic Volume (2C MOD) 78 ml LV EF (2C MOD) 54 % LV Diastolic Volume (BP MOD) 83 ml LV Diastolic Volume Index (BP MOD) 51 ml/m2 LV Systolic Volume (BP MOD) 32 ml LV Systolic Volume Index (BP MOD) 19 ml/m2 LV EF (BP MOD) 62 % LV Diastolic Length (4C) 79.9 mm 66.5-89.7 LV Systolic Length (4C) 65.8 mm 52.6-74.2 LV Stroke Volume (4C MOD) 59 ml Atria Name Value Normal LA Dimensions LA Volume (4C A-L) 29 ml LA Volume (BP A-L) 33 ml 27-79 RA Dimensions RA Systolic Major [place] Length (4C) 35.9 mm 39.1-53.5 RA Area (4C) 8.8 cm2 10.9-19.4 Report Signatures
[2024-11-22 10:34] LABS: Glucose Point of Care 418 mg/dl (65-105)
== END 2024-11-22 08:44 | disposition home or self-care (01) ==
LOC: ANHCARD 08:45
PROVIDERS: Psychiatry & Neurology Neurology; PCP Emergency Medicine; Visit Provider Internal Medicine Cardiovascular Disease
DX: E11.42 Type 2 diabetes mellitus with diabetic polyneuropathy (principal)
CPT/HCPCS: 36415; 82607; 93017; 93306

== ENCOUNTER 2024-11-22 10:34 | Emergency (ER) | payer OTHER, SELFPAY ==
[2024-11-22] VITALS (16 sets, daily range): BP systolic 113–139; BP diastolic 77–90; PULSE 103–124; RESP 14–32; TEMP 36.6; O2SAT 98–100
--- NOTE | ~2024-11-22 | CT_ITS ---
CTA chest PE protocol Ordering provider: El Irwin MD History: 19 years Female with . chest pain, syncopal episode . Comparison: None. Technique: CT angiogram chest was performed following timed intravenous injection of contrast. Thin s lice axial images and reformatted coronal images were obtained. Three dimensional reformatted images of the chest were also obtained using a [employer] workstation. . Automated exposure control and iterati ve reconstruction technique were employed. The dose-length product was 132.98 mGy-cm. 100 mL Omnipaqu e 350 was given IV. Findings: PULMONARY ARTERIES: No pulmonary embolus. VISUALIZED THORACIC INLET: Normal. MEDIASTINUM: Aorta/coronary arteries: The thoracic aorta is normal. Heart/other: The heart is not enlarged. Lymph nodes: No mediastinal or hilar adenopathy. LUNGS: No pulmonary nodules or masses. No infiltrates or effusions. No pneumothorax. VISUALIZED UPPER ABDOMEN: the visualized upper abdomen is normal. MUSCULOSKELETAL: Soft tissues: The superficial soft tissues are normal. Bones: Normal spine. IMPRESSION: 1. No pulmonary embolism. 2. No acute cardiopulmonary pathology. Reviewed, dictated and finalized at location A.
--- NOTE | ~2024-11-22 | CT_ITS ---
EXAM: CT cervical spine wo con - 11/22/2024 11:59 CDT History: 19 years old Female with trauma, generalized neck pain COMPARISON: None available. PROCEDURE: CT of the cervical spine without contrast. Axial, sagittal and coronal reformatted plane s were evaluated. Automatic exposure control was used for this study. FINDINGS: No acute fracture or subluxation. Straightening of cervical lordosis, likely positional or may be rel ated to muscle spasm. .Prevertebral soft tissues are within normal limits. Visualized lung apices are clear. IMPRESSION: No evidence for cervical spine fracture or traumatic subluxation. Reviewed, dictated and finalized at location A.
--- NOTE | ~2024-11-22 | XR_ITS ---
XR chest 2V Ordering provider: El Irwin History: 19 years Female with . SYNCOPE . Comparison: November 30, 2023 FINDINGS: MEDIASTINUM: The cardiac silhouette is not enlarged. LUNGS: No infiltrates, effusions or pneumothorax. OTHER: No free air under the diaphragm. IMPRESSION: No acute cardiopulmonary pathology. Reviewed, dictated and finalized at location A.
--- NOTE | ~2024-11-22 | CT_ITS ---
CT brain wo con Ordering provider: El Irwin MD History: 19 years Female with . head injury, syncopal episode, hit posterior aspect of head . Comparison: None. Technique: CT of the head without contrast. Radiation reduction technique utilized.The dose-length pr oduct was 529.67 mGy-cm. FINDINGS: BRAIN PARENCHYMA AND CSF SPACES: No midline shift, mass effect or hemorrhage. The brain parenchyma a nd CSF spaces are otherwise normal. VISUALIZED PARANASAL SINUSES: Well aerated. MASTOIDS: Well aerated. BONES: The bones appear intact. SOFT TISSUES: Visualized nasopharynx is normal. Superficial soft tissues are normal. IMPRESSION: No acute intracranial findings. Reviewed, dictated and finalized at location A.
--- NOTE | 2024-11-22 10:37 | ECG_ITS ---
Test Date: 2024-11-22 10:47:43 Measurements Intervals [place] Rate: 117 P: 74 OH: 173 QRS: 35 QRSD: 88 T: 42 QT: 305 QTc: 426 Interpretive Statements SINUS TACHYCARDIA BASELINE ARTIFACT- I, III, AVR, AVL, AVF, V1-V6 ABNORMAL ECG Compared to ECG 01/14/2024 13:44:30 HEART RATE HAS INCREASED Electronically Signed On 11-22-2024 10:51:25 CDT by Damien Beal D.O.
[2024-11-22 10:56] LABS: Basophils Percent Auto 0.4 % (0.2-1.2); Eosinophils Absolute Auto 0.1 K/mm3 (0-0.3); Eosinophils Percent Auto 1.5 % (0-4.4); Hematocrit 38.6 % (37.0-47.0); Hemoglobin 12.7 g/dL (12.0-15.0); Immature Granulocyte Absolute 0.02 K/mm3 (0.00-0.031); Immature Granulocyte Percent A 0.3 % (0-0.5); Lymphocytes Absolute Auto 1.45 K/mm3 (0.9-3.2); Lymphocytes Percent Auto 18.5 % (18.3-44.2); Mean Corpuscular HGB Conc 32.9 g/dl (32-36); Mean Corpuscular Hemoglobin 29.8 pg (26-34); Mean Corpuscular Volume 90.6 fl (80-100); Mean Platelet Volume 9.4 fl (7.4-10.4); Monocytes Absolute Auto 0.5 K/mm3 (0.1-0.6); Neutrophils Absolute Auto 5.7 K/mm3 (1.3-6.7); Neutrophils Percent Auto 73.3 % (45.5-73.1); Platelet Count Result 308 k/mm3 (150-375); Red Blood Count 4.26 M/mm3 (4.2-5.4); Red Cell Distribution Width 12.7 % (11.5-14.5); White Blood Count 7.8 K/mm3 (4.5-10.0)
[2024-11-22 11:07] LABS: Alanine Aminotransferase 12 U/L (6-35); Albumin Level 4.5 g/dL (3.5-5.1); Alkaline Phosphatase 110 U/L (38-126); Anion Gap 18 mmol/L (4-12); Aspartate Amino Transferase 19 U/L (14-36); Bilirubin,Total 0.4 mg/dL (0.2-1.3); Blood Urea Nitrogen 18 mg/dL (7-17); Calcium 9.4 mg/dL (8.4-10.2); Carbon Dioxide 16 mmol/L (22-30); Chloride 99 mmol/L (98-107); Estimated CRCL calculation 65 ml/min; Estimated Glomerular Filt Rate > 60; Glucose 503 mg/dL (65-110); Potassium 4.5 mmol/L (3.4-5.0); Sodium 133 mmol/L (137-145); Total Protein 7.5 g/dL (6.3-8.2)
[2024-11-22 11:44] LABS: BEDSIDEPREGUCG Negative (Negative)
[2024-11-22] MEDS: SODIUM CHLORIDE 0.9% IV 1,000 ML 999 ML IV CONT ×3 (11:50→14:22)
[2024-11-22 14:05] LABS: Glucose Point of Care 345 mg/dl (65-105)
[2024-11-22 14:27] LABS: Add Urine Microscopic? NO; Appearance Urine Clear (Clear); Bilirubin Urine Negative (Negative); Blood Urine Negative (Negative); Color Urine Yellow (Yellow); Glucose Urine UA 3+ mg/dL (Negative); Ketones Urine 2+ mg/dL (Negative); Leukocyte Esterase Ur Negative LEU/UL (Negative); Nitrate Urine Negative (Negative); Protein Urine Negative (Negative); Specific Grav Ur 1.026 (1.001-1.035); Urobilinogen Urine 0.2 mg/dL (<2.0); pH Urine 5.5 (5.0-9.0)
[2024-11-22 14:31] LABS: Alveolar/Arterial O2 Gradient 58.4 mmHg; Base Excess ABG -8.7 mEq/l (+/-2.0); Carboxyhemoglobin 0.7 % THb (0-2.0); Fractional Inspired Oxygen 21 %; HCO3 ABG 16.2 mEq/l (22.0-26.0); Methemoglobin ABG 0.3 %THb (0-1.5); Oxygen Content ABG 15.9 %vol (16.0-22.0); PCO2 ABG 31.7 mmHg (35.0-45.0); PO2 ABG 53.4 mmHg (80.0-100.0); PO2 FiO2 Ratio Arterial Blood 2.54 %; Reduced Hemoglobin 13.8 %THb (0-5.0); Total Hemoglobin 13.3 g/dL (12.0-18.0); pH ABG 7.325 (7.350-7.450)
[2024-11-22 14:32] LABS: Oxygen Saturation ABG 85.8 % (95.0-100.0)
[2024-11-22 14:33] LABS: Oxyhemoglobin 85.2 % THb (90.0-100.0)
[2024-11-22 15:07] LABS: Glucose Point of Care 287 mg/dl (65-105)
--- NOTE | 2024-11-22 15:07 | PC.NURSE ---
Pt wanting to leave. ERP aware.
--- NOTE | 2024-11-22 15:08 | ED_ITS ---
HPI - General Adult General Chief complaint: Syncope Stated complaint: fall Time Seen by Provider: 11/22/24 10:40 History of Present Illness HPI narrative: Patient is a 19-year-old female who presents ER after having a syncopal episode while undergoing a stress test. Patient had finished a stress test with a max heart rate of 144 beats per minute in a sinus rhythm when she lost consciousness falling off of the bed onto the treadmill. Patient was unconscious for 2-5 minutes. She would not respond to sternal rub. Accu-Chek was elevated in the 400s. Patient did eventually wake up and was able to talk without issue. Patient reports she has not eaten or taken insulin today. Related Data Home Medications ?Medication ?Instructions ?Recorded ?Confirmed ?Last Taken ?Type blood sugar diagnostic (OneTouch 11/30/23 11/16/24 Unknown History Verio test strips) blood-glucose sensor (Dexcom G6 11/30/23 11/16/24 Unknown History Sensor device) insulin glargine 100 unit/mL (3 16 unit subcut DAILY 04/11/24 11/16/24 05/03/24 10:56 History mL) subcutaneous pen (Basaglar KwikPen U-100 Insulin) insulin lispro 100 unit/mL See Rx Instructions .Route .COMPLEX 04/11/24 11/16/24 05/01/24 History subcutaneous solution (Humalog U-100 Insulin) atomoxetine 40 mg capsule 40 mg PO DAILY 11/16/24 11/16/24 Unknown History ondansetron 4 mg disintegrating 4 mg PO Q6H 11/16/24 11/16/24 Unknown History tablet Allergies Allergy/AdvReac Type Severity Reaction Status Date / Time amoxicillin Allergy Hives Verified 11/22/24 10:47 ceftriaxone Allergy Anaphylaxis Verified 11/22/24 10:47 Review of Systems 2 Review of Systems: All systems reviewed & are unremarkable except as noted in HPI and below Constitutional: Constitutional: Reports no additional constitutional complaints Cardiovascular: Cardiovascular: Reports no additional cardiovascular complaints Respiratory: Respiratory: Reports no additional respiratory complaints Gastrointestinal: Gastrointestinal: Reports no additional gastrointestinal complaints Musculoskeletal: Musculoskeletal: Reports no additional musculoskeletal complaints REPLACED BY [facility] Past Medical History Medical History (Updated 11/22/24 @ 15:15 by El Irwin MD) Bilateral carpal tunnel syndrome Suicide attempt (11/2023) Depression Diabetic polyneuropathy Hypothyroidism Psychogenic nonepileptic seizure Diabetic ketoacidosis Bipolar 1 disorder Anxiety Seizure disorder Type 1 diabetes Surgical History Surgical History History of appendectomy History of colonoscopy (05/2024) For evaluation of diarrhea- normal colonoscopy to depth of insertion. Left and right colon biopsies were without evidence of microscopic colitis. Family History Family History Sibling Asthma Mother Hypertension Social History Social History Social History: Surrogate medical decision maker: Denton Saucedo significant other ([phone]). Code status: Full code. Smoking status: Never smoker Second hand tobacco smoke exposure: No Alcohol intake: never Substance use: current Substance use type: marijuana Do You Feel Safe in your Home?: Yes Lack of Transportation: No Lack of Food: Never True Current Housing: Decline to Answer Concerned About Future Housing: Decline to Answer Difficulty Paying Gas/Electric Bills: Decline to Answer Difficulty Paying for Meds: Decline to Answer Currently Unemployed: Decline to Answer Education: High School Diploma/GED Difficulty w/ Childcare or Family Care: Decline to Answer Additional living arrangements comments: Lives with significant other and daughter in [place]. Additional occupation/education comments: Unemployed. Spiritual care concerns: No Exam 2 Narrative: GENERAL: Well-appearing, well-nourished, and in no acute distress. HEAD: Normocephalic, atraumatic. EYES: PERRL and EOMI. ENT: Mucous membranes moist. NECK: Supple. No midline tenderness the C-spine. CHEST: Clear to auscultation. No respiratory distress. HEART: Tachycardic and regular. Normal peripheral pulses. ABDOMEN: Soft, nontender, nondistended, normal active bowel sounds. EXTREMITIES: Normal range of motion. No edema. SKIN: Warm, dry, no rash. NEURO: Alert and oriented x3. PSYCH: Normal mood and affect. Course Course Emergency Course: Patient has received 3 L of IV fluid. Blood sugars come down into the 280s. I have offered her admission hospital for DKA and she declines admission and will be leaving against medical advice. She does not have child care centre director available to her, she has had time to speak with her significant other prior to making this decision. I have interviewed and examined the patient. I have determined that the patient has the capacity to understand the information relevant to their care. The patient also understands the consequences of the various options after we discussed relevant information. I feel that the patient is able to understand the relevant information and responds appropriately to questions. I have attempted to persuade the patient to stay to receive care. The patient understands by leaving there is a possibility of , disability, or serious injury. Despite the above information the patient has made the decision to leave against medical advice. I have attempted to persuade the patient to follow up with a physician JEREMIAH. I have also notified the patient they may return at any time to the ED for further care. Vital Signs Vital signs: Vital Signs Temperature 97.8 F 11/22/24 10:38 Pulse Rate 122 H 11/22/24 10:38 Respiratory Rate 17 11/22/24 10:38 Blood Pressure 128/90 11/22/24 10:38 Pulse Oximetry 100 11/22/24 10:38 Temperature 97.9 F 11/22/24 10:39 Pulse Rate 122 H 11/22/24 14:42 Respiratory Rate 18 11/22/24 14:42 Blood Pressure 139/89 11/22/24 14:54 Pulse Oximetry 11/22/24 14:42 Oxygen Delivery Room Air 11/22/24 10:39 Medical Decision Making Vital Signs Vital Signs: Vital Signs Temperature 97.8 F 11/22/24 10:38 Pulse Rate 122 H 11/22/24 10:38 Respiratory Rate 17 11/22/24 10:38 Blood Pressure 128/90 11/22/24 10:38 Pulse Oximetry 100 11/22/24 10:38 Temperature 97.9 F 11/22/24 10:39 Pulse Rate 122 H 11/22/24 14:42 Respiratory Rate 18 11/22/24 14:42 Blood Pressure 139/89 11/22/24 14:54 Pulse Oximetry 11/22/24 14:42 Oxygen Delivery Room Air 11/22/24 10:39 Lab Data 11/22/24 10:49 11/22/24 10:49 Labs: Lab Results 11/22/24 11/22/24 11/22/24 Range/Units 10:49 11:39 14:02 WBC 7.8 (4.5-10.0) K/mm3 RBC 4.26 (4.2-5.4) M/mm3 Hgb 12.7 (12.0-15.0) g/dL Hct 38.6 (37.0-47.0) % MCV 90.6 (80-100) fl MCH 29.8 (26-34) pg MCHC 32.9 (32-36) g/dl RDW 12.7 (11.5-14.5) % Plt Count 308 (150-375) k/mm3 MPV 9.4 (7.4-10.4) fl Immature Gran % (Auto) 0.3 (0-0.5) % Neut % (Auto) 73.3 H (45.5-73.1) % Lymph % (Auto) 18.5 (18.3-44.2) % [place] % (Auto) 6.0 (2.6-8.5) % Eos % (Auto) 1.5 (0-4.4) % Baso % (Auto) 0.4 (0.2-1.2) % Lymph # (Auto) 1.45 (0.9-3.2) K/mm3 [place] # (Auto) 0.5 (0.1-0.6) K/mm3 Eos # (Auto) 0.1 (0-0.3) K/mm3 Baso # (Auto) 0.0 (0.0-0.1) K/mm3 Abs Immat Gran (auto) 0.02 (0.00-0.031) K/mm3 Absolute Neuts (auto) 5.7 (1.3-6.7) K/mm3 Absolute Nucleated RBC 0.000 (0.0-0.012) K/mm3 Nucleated RBC % 0.0 (0.0-0.2) % Methemoglobin (0-1.5) %THb Sodium 133 L (137-145) mmol/L Potassium 4.5 (3.4-5.0) mmol/L Chloride 99 (98-107) mmol/L Carbon Dioxide 16 L (22-30) mmol/L Anion Gap 18 H (4-12) mmol/L BUN 18 H D (7-17) mg/dL Creatinine 0.91 (0.7-1.0) mg/dL Estim Creat Clear Calc 65 ml/min Estimated GFR > 60 (59 - ) Glucose 503 H* (65-110) mg/dL POC Capillary Glucose 345 H (65-105) mg/dl Calcium 9.4 (8.4-10.2) mg/dL Total Bilirubin 0.4 (0.2-1.3) mg/dL AST 19 (14-36) U/L ALT 12 (6-35) U/L Alkaline Phosphatase 110 (38-126) U/L Total Protein 7.5 (6.3-8.2) g/dL Albumin 4.5 (3.5-5.1) g/dL Urine Color (Yellow) Urine Appearance (Clear) Urine pH (5.0-9.0) Ur Specific [place] (1.001-1.035) Urine Protein (Negative) mg/dL Urine Glucose (UA) (Negative) mg/dL Urine Ketones (Negative) mg/dL Ur Blood (Man) (Negative) Urine Nitrate (Negative) Urine Bilirubin (Negative) Urine Urobilinogen (<2.0) mg/dL Leukocyte Esterase Rfl (Negative) JERROD/UL POC Urine HCG, Qual Negative (Negative) 11/22/24 11/22/24 11/22/24 Range/Units 14:19 14:21 15:05 WBC (4.5-10.0) K/mm3 RBC (4.2-5.4) M/mm3 Hgb (12.0-15.0) g/dL Hct (37.0-47.0) % MCV (80-100) fl MCH (26-34) pg MCHC (32-36) g/dl RDW (11.5-14.5) % Plt Count (150-375) k/mm3 MPV (7.4-10.4) fl Immature Gran % (Auto) (0-0.5) % Neut % (Auto) (45.5-73.1) % Lymph % (Auto) (18.3-44.2) % [place] % (Auto) (2.6-8.5) % Eos % (Auto) (0-4.4) % Baso % (Auto) (0.2-1.2) % Lymph # (Auto) (0.9-3.2) K/mm3 [place] # (Auto) (0.1-0.6) K/mm3 Eos # (Auto) (0-0.3) K/mm3 Baso # (Auto) (0.0-0.1) K/mm3 Abs Immat Gran (auto) (0.00-0.031) K/mm3 Absolute Neuts (auto) (1.3-6.7) K/mm3 Absolute Nucleated RBC (0.0-0.012) K/mm3 Nucleated RBC % (0.0-0.2) % Methemoglobin 0.3 (0-1.5) %THb Sodium (137-145) mmol/L Potassium (3.4-5.0) mmol/L Chloride (98-107) mmol/L Carbon Dioxide (22-30) mmol/L Anion Gap (4-12) mmol/L BUN (7-17) mg/dL Creatinine (0.7-1.0) mg/dL Estim Creat Clear Calc ml/min Estimated GFR (59 - ) Glucose (65-110) mg/dL POC Capillary Glucose 287 H (65-105) mg/dl Calcium (8.4-10.2) mg/dL Total Bilirubin (0.2-1.3) mg/dL AST (14-36) U/L ALT (6-35) U/L Alkaline Phosphatase (38-126) U/L Total Protein (6.3-8.2) g/dL Albumin (3.5-5.1) g/dL Urine Color Yellow (Yellow) Urine Appearance Clear (Clear) Urine pH 5.5 (5.0-9.0) Ur Specific [place] 1.026 (1.001-1.035) Urine Protein Negative (Negative) mg/dL Urine Glucose (UA) 3+ H (Negative) mg/dL Urine Ketones 2+ H (Negative) mg/dL Ur Blood (Man) Negative (Negative) Urine Nitrate Negative (Negative) Urine Bilirubin Negative (Negative) Urine Urobilinogen 0.2 (<2.0) mg/dL Leukocyte Esterase Rfl Negative (Negative) JERROD/UL POC Urine HCG, Qual (Negative) ABG Data ABG results: 11/22/24 14:21 ABG pH 7.325 L ABG pCO2 31.7 L ABG pO2 53.4 L ABG PO2/FiO2 Ratio 2.54 ABG HCO3 16.2 L ABG O2 Saturation 85.8 L* ABG O2 Content 15.9 L ABG Base Excess -8.7 A-a Gradient 58.4 Oxyhemoglobin 85.2 L* Carboxyhemoglobin 0.7 Reduced Hemoglobin 13.8 H Total Hemoglobin 13.3 FiO2 21 Imaging Data Radiologist's impression: ITS Impressions Chest X-Ray 11/22/24 11:28 IMPRESSION: No acute cardiopulmonary pathology. Head CT 11/22/24 12:26 IMPRESSION: No acute intracranial findings. Cervical Spine CT 11/22/24 12:53 IMPRESSION: No evidence for cervical spine fracture or traumatic subluxation. Chest CTA 11/22/24 12:54 IMPRESSION: 1. No pulmonary embolism. 2. No acute cardiopulmonary pathology. ECG Data EKG #1: ECG completion date: 11/22/24 ECG completion time: 10:47 EKG Interpretation: tachycardia (117), sinus rhythm, non-specific ST changes, normal QRS and NL axis Critical Care Time Critical Care Time Critical Care Time: Yes Total Critical Care Time: 35 Discharge Plan Discharge Clinical Impression: Syncope DKA (diabetic ketoacidosis) Qualifiers: Diabetes mellitus type: type 1 Diabetes mellitus complication detail: without coma Qualified Code(s): E10.10 - Type 1 diabetes mellitus with ketoacidosis without coma Patient Disposition: Left Against Medical Advice Condition: Serious Patient Language: Venezuelan Prescriptions: No Action (DME) OneTouch Verio test strips Strip MISCELLANEOUS (DME) Dexcom G6 Sensor Device MISCELLANEOUS ondansetron 4 mg tablet,disintegrating 4 mg PO Q6H atomoxetine 40 mg capsule 40 mg PO DAILY venlafaxine [Effexor XR] 37.5 mg capsule,extended release 24hr 37.5 mg PO DAILY Qty: 14 0RF Rx Instructions: 1 capsule daily for 1 week and thereafter start 75 mg daily morning venlafaxine [Effexor XR] 75 mg capsule,extended release 24hr 75 mg PO QAM Qty: 90 1RF Rx Instructions: start after 2 weeks with venlafaxine 37.5 mg daily nortriptyline 25 mg capsule 25 mg PO QHS Qty: 30 6RF lidocaine 5 % adhesive patch,medicated 2 patch topical DAILY Qty: 30 6RF Rx Instructions: leave on most painful area for up to 12 hrs insulin lispro [Humalog U-100 Insulin] 100 unit/mL solution See Rx Instructions .ROUTE .COMPLEX Rx Instructions: per sliding scale 1 unit per 10 carbs insulin glargine [Basaglar KwikPen U-100 Insulin] 100 unit/mL (3 mL) insulin pen 16 unit SUBCUT DAILY Follow-up/Referrals: Gallo Geiger MD [Primary Care Provider] -
[2024-11-22 15:17] LABS: Device ROOM AIR; Modified Allen's Test Pass; Site Drawn RIGHT RADIAL
== END 2024-11-22 15:15 | disposition left against medical advice (07) ==
PROVIDERS: Emergency Provider Emergency Medicine; PCP Emergency Medicine
DX: E10.10 Type 1 diabetes mellitus with ketoacidosis without coma (principal); R55 Syncope and collapse; E10.42 Type 1 diabetes mellitus with diabetic polyneuropathy; E03.9 Hypothyroidism, unspecified; F31.9 Bipolar disorder, unspecified; F41.9 Anxiety disorder, unspecified; Z79.4 Long term (current) use of insulin; Z79.899 Other long term (current) drug therapy; R00.0 Tachycardia, unspecified
CPT/HCPCS: 36415; 36600; 70450; 71046; 71275; 72125; 80053; 81003; 81025; 82375; 82607; 82805; 82948; 83050; 85018; 85025; 93005; 93017; 93306; 96360; 96361; 99284; J7030; Q9967

== ENCOUNTER 2025-02-02 13:18 | Outpatient (CLI) | payer OTHER, SELFPAY ==
--- OUTSIDE RECORDS SUMMARY | 2024-11-03 09:01 | XMS_ITS | Continuity of Care Document ---
Author Organization [facility] Address [address] [place] [address] Phone Care Team Providers Care Office Nurse Practitioner Name Role Phone Jorden Plascencia MD Unavailable Unavailable Allergies, Adverse Reactions, Alerts Substance Reaction Status Criticality STEMPHYLIUM SARCINAEFORME ALLERGENIC EXTRACT Anaphylax is Active No Information amoxicillin Hives / Skin Rash Active No Informa tion Medications Medication Instructions Dosage Effective Dates (start - stop) Status Comments Macrobid 100 mg capsule take 1 capsule by oral route every 12 hours with food 100 MG - Active Strattera 40 mg capsule take 1 capsule by oral route every day in the morning - Active clonidine HCl 0.1 mg tablet take 1 tablet by oral route 2 times every day 0.1 MG - Active Synthroid 100 mcg tablet take 1 tablet by oral route every day 100 MCG - Active Procedures Procedure Date OFFICE/OUTPATIENT VISIT, EST OFFICE/OUTPATIENT VISIT, EST PREV VISIT, EST, AGE 18-39 OFFICE/OUTPATIENT VISIT, EST OFFICE/OUTPATIENT VISIT, EST OFFICE/OUTPATIENT VISIT, EST OFFICE/OUTPATIENT VISIT, EST OFFICE/OUTPATIENT VISIT, EST Advance Directives Directive Yes / No Effective Date File Name No Information Encounters Encounter Description Practice Location Reason(s) For Visit Diagnoses Date Provider Providers Copied on Encounter OFFICE/OUTPA TIENT VISIT, EST [facility], [address], [place], [id number], [place] tel:[phone] [facility] UTI1 (chief complaint) Acute cystitis without hematuria Oct-0 5 Plascencia Jorden. [address], [place], [place], [id number] , [place]. tel:[phone] OFFICE/OUTPA TIENT VISIT, EST [facility], [address], [place], [place], [id number], [place] tel:[phone] [facility] syncope1 (chief complaint) Syncope and collapsePalpitation sConversion disorder with seizures or convulsions Jul- 5 Temo Jorden. [address], [place], [place], [address] , [place]. tel:[phone] PREV VISIT, EST, AGE 18-39 [facility], [address], [place], [place], [address], [place] tel:[phone] [facility] physical (chief complaint) Encounter for general adult medical examination without abnormal findings 5 Temo Jorden. [address], [place], [place], [id number] , [place]. tel:[phone] OFFICE/OUTPA TIENT VISIT, EST [facility], [address], [place], [place], [id number], [place] tel:[phone] [facility] anxiety1 (chief complaint) colitis1 (chief complaint) back pain1 (chief complaint) Tb (chief complaint) Lump in the rt breastGeneralized Anxiety DisorderEncounter for screening for respiratory TBOther spondylosis, lumbar regionColitis 5 Temo Leonardo. [address], [place], [place], [address] , [place]. tel:[phone] OFFICE/OUTPA TIENT VISIT, EST [facility], [address], [place], [place], [address], [place] tel:[phone] [facility] BM (chief complaint) Irritable bowel syndrome with diarrheaLump in the rt breastLower abdominal pain Mar-3 4 Temo Leonardo. [address], [place], [place], [id number] , [place]. tel:[phone] OFFICE/OUTPA TIENT VISIT, [facility], [place], [address], [place], [address], [place] tel:[phone] [facility] breast1 (chief complaint) DM (chief complaint) HLP (chief complaint) iron (chief complaint) BM (chief complaint) Type 1 diabetes mellitus w/ diabetic neuropathyMixed hyperlipidemiaThrom bocytosisIrritable bowel syndrome with diarrheaHypothyroid ismIron deficiency anemiaLump in the rt breast 4 Temo Leonardo. [address], [place], [place], [address] , [place]. [phone] OFFICE/OUTPA TIENT VISIT, [facility], [place], [address] [place], [address], [place] tel:[phone] [facility] anxiety1 (chief complaint) kidney1 (chief complaint) low iron1 (chief complaint) thyroid1 (chief complaint) HypothyroidismType 1 diabetes mellitus w/ diabetic neuropathyStage II chronic renal diseaseGeneralized Anxiety DisorderIron deficiency anemia 4 Temo Leonardo. [address], [place], [place], [address] , [place]. [phone] OFFICE/OUTPA TIENT VISIT, [facility], [place], [address] [place], [address], [place] tel:[phone] [facility] anxiety1 (chief complaint) DM (chief complaint) iron deficienc1 (chief complaint) thyroid1 (chief complaint) Type 1 diabetes mellitus w/ diabetic neuropathyGeneraliz ed Anxiety DisorderHypothyroid ismStage II chronic renal disease 4 Temo Leonardo. [address], [address] , [place]. tel:[phone] Family History Family Member Type Diagnosis Age At Onset Mother Problem Alcoholism Sister Problem Alive and well Father Problem unknown Payers Payer name Insurance type Covered alliance party ID Rekha sousa(s) [facility] [id number] Social History Type Description Quantity Date Captured Comments Alcohol Use Details No Caffeine Use Details Unknown Tobacco Use Status Current non-smoker Smoking Status Never smoker Sex Female Vital Signs Date / Time: Height Weight BMI Pulse Rate Blood Pressure Temperature Respiratory Rate Body Surface Area Head Circumference BMI percentile Pulse Ox Inhaled Ox 2:05 PM 97.2 F Chief Complaint And Reason For Visit From encounter dated '11/03/2024 14:01'. UTI1 (chief complaint). Description: Pt c/o acute onset off urinary frequency, urgency and dysuria and mild left flank pain for 2-3 days. Pt denies any fever, chill, nausea, vomiting. Plan Of Treatment Date Type Action Status Referral Referred To: Damien Beal [address] [place] [address], [phone] Ordered: Referrals: Damien Beal. Evaluate and treat ordered Referral Ordered: COLONOSCOPY AND BIOPSY ordered Referral Ordered: CT ABDOMEN&PELVIS W/CONTRAST ordered Referral Ordered: MAMMOGRAM, ONE BREAST ordered History Of Present Illness Encounter Date Complaint History Of Prese nt Illness UTI1 Pt c/o acute ons et off urinary frequency, urgency and dysuria and mild left flank pain for 2-3 days. Pt denies any fever, chill, nausea, vomiting. syncope1 Pt passed out thursday while sitting in the passenger seat of a car and she started to feel sweaty, clammy, chest pain and palpitation, heart burn feeling and she saw some black dots on her visual field and she passed out completely for about 10 mins. Pt did not bite her tongue and no seizure activity and no drooling. her boyfriend drove her to ER and she woke up without any confusion. Pt denies any headache Pt had lab done which were all normal and she had EKG done which showed possible left atrial enlargement and also right ventricular conduction delay. Pt has history of pseudoseizure last year and she had normal MRI of brain and normal overnight EEG. Pt was also seen neurology last year and was diagnosed with psychogenic nonepileptic seizure. Pt has not passed out for more than one year until recently physical Pt needs annual physical. Pt has ADD and anxiety Pt is on strattera and clonidine PRN. Pt sees psychiatrist Pt denies any depression or any suicidal or homicidal thought. Pt denies any crying spells Pt has type I DM and she is on insulin pump. Pt has hypothyroidism Pt is on synthroid Pt denies any myalgia Pt needs clearance for work. 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 anxiety1 Pt has history o f anxiety and depression and possible ADD Pt is on clonidine now .Pt is off latuda and lamictal and cymbalta per psychiatry Pt denies any suicidal or homicidal thought Pt denies any crying spells colitis1 Pt has history o f colitis with negative colonoscopy Pt denies any GI issue back pain1 Pt has intermitt ent low back pain Pt denies any sciatica or any loss of bowel or bladder control or saddle area paresthesia Pt started a new job lifting patient and her back pain has been flaring up. 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 Pt denies any blood. Pt denies any constipation . Pt c/o some bloating and sharp pain left side of abdomen as well. Pt denies any nausea, vomiting GERD Pt tried miralax and senna but she still feel incomplete emptying Pt denies any hard stool. Pt tried fiber but has not helped. Pt has Bm daily. Pt denies any fever or blood in stool breast1 pt notices one c ystic breast lesion right breast last week, which is getting smaller Pt denies any breast redness or warmth. or nipple discharge Pt denies any breast deformity. Pt notices mild tenderness around the lesion DM Pt has type I DM Pt sees endo Pt is on insulin. Pt has low thyroid Pt is on synthroid. Pt sees endo HLP Pt has mild HLP. iron Pt has history o f iron deficiency anemia. her current iron and CBC are ok Pt denies any bleeding BM Pt states that s he has liquid stool and feeling of incomplete emptying for several days Pt denies any blood. Pt denies any constipation .Pt denies any abd pain low iron1 Pt has chronic i everett deficiency anemia Pt is on oral iron Pt denies any heavy period Pt denies any GI bleeding Pt has IUD thyroid1 Pt has low thyro id. Pt is on synthroid Pt denies any dysphagia or neck pain Pt sees endo kidney1 Pt has chronic k idney disease. Pt sees nephrology .Pt has normal UO. Pt wants lab for kidney anxiety Pt has chronic a nxiety and depression and bipolar. Pt sees psychiatry .pt is on cymbalta, latuda and lamictal .Pt is off buspar, hydroxyzine and seroquel per psychiatry. Pt still has some anxiety Pt denies any suicidal or homicidal thought pt denies any crying spells anxiety1 Pt has chronic a nxiety and depression and also bipolar with recent history of suicidal attempted and she was just released from inpatient facility. Pt denies any suicidal or homicidal thought. Pt denies any crying spells Pt still feels depressed and anxious. Pt used to take klonopin but is not on it now which was stopped while inpatient recently Pt states that she still has a lot of anxiety DM Pt has type I DM with renal disease. Pt sees endo and nephrology. Pt is on basaglar and humalog. Pt states that her glucose is around 250 at home Pt also has peripheral neuropathy around her hand and feet. Pt sees neurology and she was started on cymbalta recently but has not helped. iron deficienc1 Pt has chronic i everett deficiency Pt was started on iron recently. Pt denies any bleeding Pt does have heavy period thyroid1 Pt has hypothyro idism. Pt is on synthroid 100 mcg by endo Instructions Date Instruction Additional Infor mation No Information Assessments Type Assessment Date assessment Acute cystitis without hematuria Mental Status Date Cognitive Assessment Orientation - [place] ed to time, place, person, situation.
--- OUTSIDE RECORDS SUMMARY | 2025-02-02 13:23 | XMS_ITS | Encounter Summary ---
Author Organization [facility] Address [address] [place] [address] Care Team Providers Care Supervisor Hospitality House Name Role Phone Jackelyn Cannon MD Primary Care Provider [phone] Reason for Visit * Reason Onset Date Comments MEDICATION REFILL 01/20/2012 Encounter Details Date Type Department Care Team (Late st Contact Info) Description 01/20/2012 Refill [facility] Pediatrics - Diabetes [id number] [place] [address] Dudley Amaral, THERAPY ASSISTANT-CORRUGATOR MACHINE OPERATOR [address] [place] [address] MEDICATION REFILL Social History Tobacco Use Types Packs/Day Years Used Date Smoking Tobacco: Never Assessed Comments Unknown Sex and Gender Information Value Date Recorded Sex Assigned at Not on file 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
--- OUTSIDE RECORDS SUMMARY | 2025-02-02 13:23 | XMS_ITS | Encounter Summary ---
Author Organization [facility] Address [address] [facility] [place] [address] Care Team Providers Care Film Maker Name Role Phone Jackelyn Cannon MD Primary Care Provider [phone] Reason for Visit * Reason Onset Date Comments Blood Sugar Problem 06/09/2011 Mom called h ad a weekend of ketones, vomiting and low blood sugars.-was in contact with Dr. Gaytan. Would like to come in thru the ER to be evaluated. Please call. Encounter Details Date Type Department Care Team (Late st Contact Info) Description 06/09/2011 Telephone [facility] Pediatrics - Diabetes Mgmt [address] [place] [address] [place] [address] [facility] [address] [place] [address] Blood Sugar Problem (Mom called had a weekend of ketones, vomiting and low blood sugars.-was in contact with Dr. Gaytan. Would like to come in thru the ER to be evaluated. Please call. 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
--- OUTSIDE RECORDS SUMMARY | 2025-02-02 13:23 | XMS_ITS | Encounter Summary ---
Author Organization [facility] Address [address] [place] [address] Care Team Providers Care Conservation Agent Name Role Phone Jackelyn Cannon MD Primary Care Provider [phone] Nicki Villarreal PhD Unavailable [phone] Colleen Licona RN Unavailable Gallo Geiger MD Primary Care Provider [phone] Jorden Plascencia MD Primary Care Provider [phone] Encounter Details Date Type Department Care Team (Late st Contact Info) Description 10/15/2022 Documentation [facility] [address] [place] [address] Manda Enriquez MD [address] [facility] [phone] [place], [place] [id number] Social History Tobacco Use Types Packs/Day Years Used Date Smoking Tobacco: Never Smokeless Tobacco: Never Alcohol Use Standard Drinks/Week Comments Never 0 (1 standard drink = 0.6 oz pur e alcohol) Social Connection and Isolation Panel Answer Date Recorded In a typical week, how many times do you talk on the phone with family, friends, or neighbors? More than three times a week 09/23/2022 How often do you get togethe r with friends or relatives? Three times a week 09/23/2022 How often do you attend chur ch or jain services? Never 09/23/2022 Do you belong to any clubs o r organizations such as mormon groups, unions, fraternal or athletic groups, or school groups? No 09/23/2022 How often do you attend meet ings of the clubs or organizations you belong to? Never 09/23/2022 Are you , , di vorced, , never , or living with a partner? Living with partner 09/23/2022 Overall Financial Resource Strain (CARDIA) Answe r Date Recorded How hard is it for you to pa y for the very basics like food, housing, medical care, and heating? Not very hard 09/23/2022 Hunger Vital Sign Answer Date Recorded Within the past 12 months, y ou worried that your food would run out before you got the money to buy more. Never true 09/24/19 23 Within the past 12 months, t he food you bought just didn't last and you didn't have money to get more. Never true 09/23/2022 PRAPARE - Transportation Answer Date Re corded In the past 12 months, has l ack of transportation kept you from medical appointments or from getting medications? No 08/31 In the past 12 months, has l ack of transportation kept you from meetings, work, or from getting things needed for daily living? No 09/23/2022 Housing Stability Vital Sign Answer Dhaval e Recorded In the last 12 months, was t here a time when you were not able to pay the mortgage or rent on time? No 09/23/2022 In the last 12 months, how many places have you lived? 2 09/23/2022 In the last 12 months, was t here a time when you did not have a steady place to sleep or slept in a half-way (including now)? 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 Author Hemoglobin A1c < 7.5 Result Component 9.9(11/26/2024 9:35 AM CDT) No Jennifer Mosher MD documented as of this encounter Visit Diagnoses Not on filedocumented in this encounter Additional Health Concerns Infection Onset Date Last Indicated Resolved Time COVID: Suspected 10/22/2022 10/22/2022 10/22/2022 5:47 PM CDT COVID: Suspected 01/21/2023 01/21/2023 01/21/2023 8:11 PM CDT COVID: Suspected 11/16/2023 11/16/2023 11/16/2023 11:40 AM CDT documented as of this encounter Care Teams Conservation Agent Relationship Specialty Start Date End Date Jackelyn Cannon MD PCP - General 12/16/16 03/15/23 Gallo Geiger MD [address] [place] [address] PCP - General Emergency Medicine 03/16/23 11/24/24 Jorden Plascencia MD [address] [place] [address] PCP - General Family Medicine 11/25/24 Nicki Villarreal, PhD [address] [place] [address] Fellow Psychology 04/28/22 Colleen Licona, CESAR [address] [place] [address] SHOP Outpatient Assistant Manager Bilingual 02/16/23 03/16/23 documented as of this encounter
--- OUTSIDE RECORDS SUMMARY | 2025-02-02 13:24 | XMS_ITS | Encounter Summary ---
Author Organization [facility] Address [address] [place] [address] Phone Care Team Providers Care Library Supervisor Name Role Phone Jackelyn Cannon MD Primary Care Provider Nicki Villarreal PhD Unavailable Colleen Licona RN Unavailable Gallo Geiger MD Primary Care Provider Jorden Plascencia MD Primary Care Provider Reason for Visit * Reason Onset Date Comments OPAT 12/19/2022 Encounter Details Date Type Department Care Team (Late st Contact Info) Description 12/19/2022 Documentation [facility] Medicine Infectious Diseases [address] [place] [address] Teri Fitzgerald NP [address] [place] [address] OPAT Social History Tobacco Use Types Packs/Day Years Used Date Smoking Tobacco: Never Smokeless Tobacco: Never Alcohol Use Standard Drinks/Week Comments Never 0 (1 standard drink = 0.6 oz pur e alcohol) OASIS D0700: Social Isolation Answer Da te Recorded Frequency of experiencing loneliness or isolatio n Never 12/22/2022 OASIS A1250: Transportation Answer Date Recorded Lack of Transportation (Medical) Yes 12/22/2022 Lack of Transportation (Non-Medical) No 12/22/2022 Patient Unable or Declines to Respond No 12/22/2022 OASIS B1300: Health Literacy Answer Dhaval e Recorded Frequency of needing help to read materials from doctor or pharmacy Never 12/22/2022 Social Connection and Isolation Panel Answer Date Recorded In a typical week, how many times do you talk on the phone with family, friends, or neighbors? More than three times a week 12/09/2022 How often do you get togethe r with friends or relatives? Three times a week 12/09/2022 How often do you attend chur ch or muslim services? Never 12/09/2022 Do you belong to any clubs o r organizations such as judaism groups, unions, fraternal or athletic groups, or school groups? No 12/09/2022 How often do you attend meet ings of the clubs or organizations you belong to? Never 12/09/2022 Are you , , di vorced, , never , or living with a partner? Living with partner 12/09/2022 Overall Financial Resource Strain (CARDIA) Answe r Date Recorded How hard is it for you to pa y for the very basics like food, housing, medical care, and heating? Not very hard 12/09/2022 Hunger Vital Sign Answer Date Recorded Within the past 12 months, y ou worried that your food would run out before you got the money to buy more. Never true 12/10/19 23 Within the past 12 months, t he food you bought just didn't last and you didn't have money to get more. Never true 12/09/2022 PRAPARE - Transportation Answer Date Re corded In the past 12 months, has l ack of transportation kept you from medical appointments or from getting medications? No 11/29 In the past 12 months, has l ack of transportation kept you from meetings, work, or from getting things needed for daily living? No 12/09/2022 Housing Stability Vital Sign Answer Dhaval e Recorded In the last 12 months, was t here a time when you were not able to pay the mortgage or rent on time? No 12/09/2022 In the last 12 months, how many places have you lived? 2 12/09/2022 In the last 12 months, was t here a time when you did not have a steady place to sleep or slept in a correction (including now)? 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 Gender Identity Female 09/18/2023 8:24 AM CDT [...] Date Last Indicated Resolved Time COVID: Suspected 01/21/2023 01/21/2023 01/21/2023 8:11 PM CDT COVID: Suspected 11/16/2023 11/16/2023 11/16/2023 11:40 AM CDT documented as of this encounter Care Teams Library Supervisor Relationship Specialty Start Date End Date Jackelyn Cannon MD PCP - General 12/16/16 03/15/23 Gallo Geiger MD [address] [place] [address] PCP - General Emergency Medicine 03/16/23 11/24/24 Jorden Plascencia MD [address] [place] [address] PCP - General Family Medicine 11/25/24 Nicki Villarreal, PhD [address] [place] [address] Fellow Psychology 04/28/22 Colleen Licona, RN [address] [facility] [address] [place] [address] SHOP Outpatient Journeyman Pressman 02/16/23 03/16/23 documented as of this encounter
--- OUTSIDE RECORDS SUMMARY | 2025-02-02 13:24 | XMS_ITS | Encounter Summary ---
Author Organization [facility] [place] [facility] Address [address] [place] [address] Phone Care Team Providers Care Maintenance Parts Technician Name Role Phone Nicki Villarreal PhD Unavailable [phone] Jorden Plascencia MD Primary Care Provider [phone] Reason for Visit * Reason Onset Date Comments Glucose readings 02/01/2025 Encounter Details Date Type Department Care Team (Late st Contact Info) Description 02/01/2025 Telephone [facility] Endocrinology Metabolism and Lipid [address] [facility] Medicine 13 [place] [address] [place] [address] Debbie Chaney, RN Glucose readings Social History Tobacco Use Types Packs/Day Years Used Date Smoking Tobacco: Never Smokeless Tobacco: Never Alcohol Use Standard Drinks/Week Comments Never 0 (1 standard drink = 0.6 oz pur e alcohol) OASIS D0700: Social Isolation Answer Da te Recorded Frequency of experiencing loneliness or isolatio n Never 03/23/2023 OASIS A1250: Transportation Answer Date Recorded Lack [...] neighbors? More than three times a week 03/18/2023 How often do you get togethe r with friends or relatives? More than three times a week 03/18/2023 How often do you attend chur ch or rastafari services? Never 03/18/2023 Do you belong to any clubs o r organizations such as alevism groups, unions, fraternal or athletic groups, or school groups? No 03/18/2023 How often do you attend meet ings of the clubs or organizations you belong to? Never 03/18/2023 Are you , , di vorced, , never , or living with a partner? Living with partner 03/18/2023 AUDIT-C Answer Date Recorded Q1: How often do you have a drink containing alcohol? Never 11/26/2024 Q2: How many drinks containi ng alcohol do you have on a typical day when you are drinking? Patient does not drink Q3: How often do you have si x or more drinks on one occasion? Never 11/26/2024 Overall Financial Resource Strain (CARDIA) Answe r Date Recorded How hard is it for you to pa y for the very basics like food, housing, medical care, and heating? Somewhat hard 03/18/2023 PHQ-2 Answer Date Recorded PHQ-2 Total Score 0 03/18/2023 Hunger Vital Sign Answer Date Recorded Within the past 12 months, y ou worried that your food would run out before you got the money to buy more. Never true 03/18/20 23 Within the past 12 months, t he food you bought just didn't last and you didn't have money to get more. Never true 03/18/2023 PRAPARE - Transportation Answer Date Re corded In the past 12 months, has l ack of transportation kept you from medical appointments or from getting medications? No 03/01 In the past 12 months, has l ack of transportation kept you from meetings, work, or from getting things needed for daily living? No 03/18/2023 Housing Stability Vital Sign Answer Dhaval e Recorded In the last 12 months, was t here a time when you were not able to pay the mortgage or rent on time? No 03/18/2023 In the last 12 months, how many places have you lived? 1 03/18/2023 In the last 12 months, was t here a time when you did not have a steady place to sleep or slept in a retirement (including now)? No 03/18/2023 [place] Depression Scale Answer Date Recorded [place] Depression Scale Total 10 02/24/2023 The thought of harming myself has occurred to me . Never 02/24/2023 Personal Safety Answer Date Recorded Have you ever been in or are you currently in a harmful physical or emotional relationship or is someone making you feel afraid or unsafe? 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 2nd attempt to reach patient. Left voicemail to call. Viewed Dexcom data and patient is still having significant lows. documented in this encounter Plan of Treatment Not on file documented as of this encounter Goals Goal Patient Goal Type Associated Problems Recent Progress Patient-Stated? Author Hemoglobin A1c < 7.5 Result Component 9.9(11/26/2024 9:35 AM CDT) No Jennifer Mosher MD documented as of this encounter Visit Diagnoses Not on filedocumented in this encounter Care Teams Maintenance Parts Technician Relationship Specialty Start Date End Date Jorden Plascencia MD [address] [facility] [address] [place] [address] PCP - General Family Medicine 11/25/24 Nicki Villarreal PhD [address] [facility] [address] [place] [address] Fellow Psychology 04/28/22 documented as of this encounter
--- OUTSIDE RECORDS SUMMARY | 2025-02-02 13:24 | XMS_ITS | Encounter Summary ---
Author Organization [facility] Address [address] [place] [address] Care Team Providers Care District Manager In Training Name Role Phone Jackelyn Cannon MD Primary Care Provider [phone] Reason for Visit * Reason Onset Date Comments Question 03/20/2010 having night alyssia e vomiting everyother night. please call mom Encounter Details Date Type Department Care Team (Late st Contact Info) Description 03/20/2010 Telephone [facility] Pediatrics - Diabetes [address] [address] Shamar Merida MD [address] [place] [id number] Question (having night time vomiting everyother night. please call mom) Social History Tobacco Use Types Packs/Day Years Used Date Smoking Tobacco: Never Assessed Comments Unknown Sex and Gender Information Value Date Recorded Sex Assigned at Not on file Legal Sex Female 5:44 AM OFFICE TECHNOLOGIST Gender Identity Not on file Sexual Orientation Not on file documented as of this encounter Plan of Treatment Not on file documented as of this encounter Visit Diagnoses Not on filedocumented in this encounter Care Teams District Manager In Training Relationship Specialty Start Date End Date Jackelyn Cannon MD [address] [place] [address] PCP - General 09/11/09 documented as of this encounter
--- OUTSIDE RECORDS SUMMARY | 2025-02-02 13:24 | XMS_ITS | Patient Health Record ---
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) Diagnosis 2 ZION (generalized anx iety disorder) (F41.1) Diagnosis 3 ADHD (attention defi cit hyperactivity disorder) (F90.9) Referral Organization [facility] Referring Provider First Name Debbie Referring Provider Last Name Donald Referring Provider Speciality Psychiatry Referred Provider Specialty [facility] Clinical Notes Daljit Menchaca 09/27/2024 10:30:56 AM > Radio Repairer Domestic called and left voicemail messageBernarda McKayla A 10/17/2024 03:44:14 PM > Radio Repairer Domestic called and left voicemail messageBernarda McKayla A 10/18/2024 03:08:08 PM > Radio Repairer Domestic is sending letter in the mail, close 10/30 Referral Priority Routine Medications Medication SIG (Take, Route, Frequency, Duration) Notes Start Date End Date Status Ferrous Sulfate 325 (65 Fe) MG 1 tablet Orally Three times a Week Not-Taking cloNIDine HCl 0.1 MG 1 tablet Orally three times daily; Duration: 30 days As needed Not-Taking HumaLOG 100 UNIT/ML as directed Subcutaneous Active Cyclobenzaprine HCl 10 MG 1 tablet at bedtime as needed Orally Once a day; Duration: 30 day(s) Active Basaglar KwikPen 100 UNIT/ML as directed Subcutaneous Active Vyvanse 20 MG 1 capsule in the morning Orally Once a day; Duration: 11 days *PA approval expires 12/27/25. 01/23/2025 Active fluvoxaMINE Maleate 50 MG 1 tablet Orally Once a day; Duration: 11 days Active Gabapentin 300 MG 1 capsule Orally three times daily; Duration: 30 day(s) Not-Taking Social History Tobacco Use: Social History Observation Description Date Details (start date - stop date) Never Smoker NA - NA Tobacco Control (Standard) Question Answer Notes Tobacco use: Nonsmoker AUDIT-C (Standard) Question Answer Notes Did you have a drink containing alcohol in the p ast year? No Points 0 Interpretation Negative Problems Problem Type SNOMED Code ICD Code Onset Dates Problem Status W/U Status Risk Notes Problem Insomnia (223008573) Insomnia due to medical condition (G47.01) Active confirmed Problem Attention deficit hyperactivity disorder (666516611) ADHD (attention deficit hyperactivity disorder) (F90.9) Active confirmed Problem Generalized anxiety disorder (14415210) ZION (generalized anxiety disorder) (F41.1) Active confirmed Problem Poor concentration (31976534) Poor concentration (R41.840) Active confirmed Problem Major depression, single episode (53704797) Major depressive disorder without psychotic features (F32.9) Active confirmed Vital Signs Heart Rate 94 /min 08/08/2024 Temperature 97.8 degrees Fahrenheit 08/08/2024 Respiratory Rate 16 /min 08/08/2024 Oximetry 99 % 08/08/2024 Blood pressure diastolic 74 mm Hg 08/08/2024 Height 61 in 08/08/2024 Blood pressure systolic 118 mm Hg 08/08/2024 Weight 141.0 lbs 08/08/2024 BMI 26.64 kg/m2 08/08/2024 Encounters Encounter Location Date Provider Diagnosis [facility] [address] [address] 02/02/2025 Debbie Bennett [address] [address] 04/01/2024 Debbie Bennett ZION (generalized anxiety disorder) F41.1 ; Major depressive disorder without psychotic features F32.9 and Insomnia due to medical condition G47.01 [facility] [address] [address] 07/06/2024 Debbie Sparr ZION (generalized anxiety disorder) F41.1 ; Major depressive disorder without psychotic features F32.9 ; Insomnia due to medical condition G47.01 and Poor concentration R41.840 [facility] [address] [place] [address] 08/08/2024 Debbie Sparr ZION (generalized anxiety disorder) F41.1 ; Major depressive disorder without psychotic features F32.9 ; Insomnia due to medical condition G47.01 and ADHD (attention deficit hyperactivity disorder) F90.9 [facility] [place] [address] 12/26/2024 Debbie Sparr ZION (generalized anxiety disorder) F41.1 ; Major depressive disorder without psychotic features F32.9 ; Insomnia due to medical condition G47.01 and ADHD (attention deficit hyperactivity disorder) F90.9 [facility] [address] [address] 07/07/2024 Debbie Bennett Poor concentration R41.[address] [place] [address] 07/11/2024 Debbie Bennett [facility] [address] [place] [address] 07/14/2024 Debbie Bennett [facility] [address] [place] [address] 08/09/2024 Debbie Bennett [facility] [address] [place] [address] 12/13/2024 Debbie Borregor [facility] [address] [place] [address] 12/26/2024 Debbie Caro [facility] [address] [place] [address] 01/23/2025 Debbie Sparr ZION (generalized anxiety disorder) F41.1 and ADHD (attention deficit hyperactivity disorder) F90.9 Assessments Encounter Date Diagnosis (ICD Code) Assessment Notes Treatment Notes Treatment Clinical Notes Section Notes 04/01/2024 ZION (generalized anxiety disorder) (ICD-10 - F41.1) -- DC Hydroxy --stopped in the hospital --feels anxiety is her biggest concern, doesn't want to trial medication she would have to take regularly as she stopped all her meds 3 weeks ago. --trial Clonidine as needed for anxiety due to pt preference, evaluate at follow up 07/06/2024 ZION (generalized anxiety disorder) (ICD-10 - F41.1) --feels anxiety and poor focus/concentration is her biggest concern, Clonidine helps a little with anxiety for a short time __continue Clonidine as needed for anxiety due to pt preference, evaluate at follow up 07/07/2024 Poor concentration (ICD-10 - R41.840) 08/08/2024 ZION (generalized anxiety disorder) (ICD-10 - F41.1) --usually feels anxious, moderate anxiety, takes Clonidine regularly, but doesn't last long, feeling somewhat anxious as they are still getting settled into the house the've just moved into. Willing to take medicine regularly for anxiety --trial Fluvoxamine for anxiety evaluate at follow up __continue Clonidine as needed for anxiety due to pt preference, evaluate at follow up 12/26/2024 ZION (generalized anxiety disorder) (ICD-10 - F41.1) - usually feels anxious, severe anxiety, doesn't feel Clonidine has been effective, took Fluvoxamine for about 3 weeks, unsure if it was effective. __titrate Fluvoxamine for anxiety evaluate at follow up __DC Clonidine not effective 01/23/2025 ZION (generalized anxiety disorder) (ICD-10 - F41.1) 12/26/2024 Major depressive disorder without psychotic features (ICD-10 - F32.9) Reasons, potential benefits, interactions and side effects of all medications were discussed. The Patient/Guardian asked appropriate questions, appeared to understand the answers, and decided to accept the treatment and continue being followed. Alternatives and expected course without treatment were reviewed. The Patient/Guardian is aware of the need to contact the office or return for an earlier appointment if any problems or concerns arise. May also contact the 24-hour crisis hotline (R), refer to the closest emergency room or call 911 if new symptoms arise or existing symptoms worsen. The Patient/Guardian is aware that this would apply to symptoms like: suicidal ideation, homicidal ideation, high risk behaviors, manic symptoms, psychotic symptoms, physical symptoms, or any other symptoms that may be dangerous to self or others. Greater than 50% of time spent on coordination and counseling where psychopharmacology as well as psychotherapeutic interventions were discussed along with review of treatments in the past. Education provided concerning need for adequate hydration. Patient/Guardian verbalized understanding of education, treatment plan and follow up. Appointment performed via telphone appt Follow up in 3-4 weeks weeks or sooner as needed. May self-administer or be administered own oral medication per [place] Protocols. Provided informed consent with understanding of side effects, risks and benefits as well as alternative treatments as previously discussed and with the above recommended medications ang other aspects of the treatment program. Agrees to return sooner if symptoms worsen or suicidal or homicidal ideations occur. support and education provided concerning illness and treatment plan, risks and benefits, pt verbalized understanding of the same and agreeable - her baby has been sick with stomach flu, pt was hospitalized 4 weeks ago with DKA. Feeling better, but still tired. Mild depression, denies mood swings, or irritability. Ok energy and motivation. 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 Irritable at times when she feels anxious, Denies SI/HI, AH/VH. - differential dx- Bipolar 1 disorder - trialed Lexapro 01/23/2025 ADHD (attention deficit hyperactivity disorder) (ICD-10 - F90.9) 08/08/2024 Major depressive disorder without psychotic features (ICD-10 - F32.9) Reasons, potential benefits, interactions and side effects of all medications were discussed. The Patient/Guardian asked appropriate questions, appeared to understand the answers, and decided to accept the treatment and continue being followed. Alternatives and expected course without treatment were reviewed. The Patient/Guardian is aware of the need to contact the office or return for an earlier appointment if any problems or concerns arise. May also contact the 24-hour crisis hotline (R), refer to the closest emergency room or call 911 if new symptoms arise or existing symptoms worsen. The Patient/Guardian is aware that this would apply to symptoms like: suicidal ideation, homicidal ideation, high risk behaviors, manic symptoms, psychotic symptoms, physical symptoms, or any other symptoms that may be dangerous to self or others. Greater than 50% of time spent on coordination and counseling where psychopharmacology as well as psychotherapeutic interventions were discussed along with review of treatments in the past. Education provided concerning need for adequate hydration. Patient/Guardian verbalized understanding of education, treatment plan and follow up. Appointment performed in person in clinic Follow up in 3-4 weeks weeks or sooner as needed. May self-administer or be administered own oral medication per [place] Protocols. Provided informed consent with understanding of side effects, risks and benefits as well as alternative treatments as previously discussed and with the above recommended medications ang other aspects of the treatment program. Agrees to return sooner if symptoms worsen or suicidal or homicidal ideations occur. support and education provided concerning illness and treatment plan, risks and benefits, pt verbalized understanding of the same and agreeable --recently moved to new house last week still getting settled in and unpacking, mood has been stable, mild depression, moderate anxiety, poor focus and concentration, easily distracted, good energy and motivation. 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 Irritable at times when she feels anxious, Denies SI/HI, AH/VH. --differential dx--Bipolar 1 disorder --trialed Lexapro 08/08/2024 Insomnia due to medical condition (ICD-10 - G47.01) -her 17 MO is still waking up during the night and pt gets up with her. Improved quality of sleep 07/06/2024 Major depressive disorder without psychotic features (ICD-10 - F32.9) Reasons, potential benefits, interactions and side effects of all medications were discussed. The Patient/Guardian asked appropriate questions, appeared to understand the answers, and decided to accept the treatment and continue being followed. Alternatives and expected course without treatment were reviewed. The Patient/Guardian is aware of the need to contact the office or return for an earlier appointment if any problems or concerns arise. May also contact the 24-hour crisis hotline (R), refer to the closest emergency room or call 911 if new symptoms arise or existing symptoms worsen. The Patient/Guardian is aware that this would apply to symptoms like: suicidal ideation, homicidal ideation, high risk behaviors, manic symptoms, psychotic symptoms, physical symptoms, or any other symptoms that may be dangerous to self or others. Greater than 50% of time spent on coordination and counseling where psychopharmacology as well as psychotherapeutic interventions were discussed along with review of treatments in the past. Education provided concerning need for adequate hydration. Patient/Guardian verbalized understanding of education, treatment plan and follow up. Appointment performed 100% via telephone appt with pt consent Follow up in 3-4 weeks weeks or sooner as needed. May self-administer or be administered own oral medication per [place] Protocols. Provided informed consent with understanding of side effects, risks and benefits as well as alternative treatments as previously discussed and with the above recommended medications ang other aspects of the treatment program. Agrees to return sooner if symptoms worsen or suicidal or homicidal ideations occur. support and education provided concerning illness and treatment plan, risks and benefits, pt verbalized understanding of the same and agreeable --mood has been stable, mild depression, moderate anxiety, poor focus and concentration, easily distracted, good energy and motivation. 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 Irritable at times when she feels anxious, Denies SI/HI, AH/VH --pt prefers to remain off medicine for depression/mood instability or any medicine that she would take regularly --differential dx--Bipolar 1 disorder --trialed Lexapro 04/01/2024 Major depressive disorder without psychotic features (ICD-10 - F32.9) Reasons, potential benefits, interactions and side effects of all medications were discussed. The Patient/Guardian asked appropriate questions, appeared to understand the answers, and decided to accept the treatment and continue being followed. Alternatives and expected course without treatment were reviewed. The Patient/Guardian is aware of the need to contact the office or return for an earlier appointment if any problems or concerns arise. May also contact the 24-hour crisis hotline (R), refer to the closest emergency room or call 911 if new symptoms arise or existing symptoms worsen. The Patient/Guardian is aware that this would apply to symptoms like: suicidal ideation, homicidal ideation, high risk behaviors, manic symptoms, psychotic symptoms, physical symptoms, or any other symptoms that may be dangerous to self or others. Greater than 50% of time spent on coordination and counseling where psychopharmacology as well as psychotherapeutic interventions were discussed along with review of treatments in the past. Education provided concerning need for adequate hydration. Patient/Guardian verbalized understanding of education, treatment plan and follow up. Appointment performed 100% via telephone appt Follow up in 2-3 weeks or sooner as needed. May self-administer or be administered own oral medication per [place] Protocols. Provided informed consent with understanding of side effects, risks and benefits as well as alternative treatments as previously discussed and with the above recommended medications ang other aspects of the treatment program. Agrees to return sooner if symptoms worsen or suicidal or homicidal ideations occur. support and education provided concerning illness and treatment plan, risks and benefits, pt verbalized understanding of the same and agreeable --hospitalized for gastritis last month, Seroquel and Latuda were stopped in the hosptial, pt stopped all meds within the last 3 weeks and feeling ok, just overwhelmed easily. -DC Seroquel & Latuda --pt prefers to remain off medicine for depression/mood instability or any medicine that she would take regularly --differential dx--Bipolar 1 disorder --trialed Lexapro 07/06/2024 Insomnia due to medical condition (ICD-10 - G47.01) -her 17 MO is still waking up during the night and pt gets up with her. Improved quality of sleep 07/06/2024 Poor concentration (ICD-10 - R41.840) -- patient has always struggled with poor concentration and focus. Feels this is what makes her anxiety worse. Struggles to get organized but is easily distracted. -- trial for poor focus and concentration evaluate it follow-up agreeable to in-person visit at follow-up appointment will evaluate will complete ADHD screening tool. 04/01/2024 Insomnia due to medical condition (ICD-10 - G47.01) --DC Seroquel 08/08/2024 ADHD (attention deficit hyperactivity disorder) (ICD-10 - F90.9) --completed ASRSv1.1 completed--++for ADHD --Strattera helped improve focus for a few days, for a couple hours on those days, then quit working, -- titrate Atomoxetine for poor focus and concentration evaluate it follow-up 12/26/2024 Insomnia due to medical condition (ICD-10 - G47.01) -her baby has been sick and she's been hospitalized for DKA, getting 5-6 hours, but still feels tired, 12/26/2024 ADHD (attention deficit hyperactivity disorder) (ICD-10 - F90.9) - completed ASRSv1.1 completed- ++for ADHD - Strattera lasted about an hour, felt a boost for about 15 minutes then felt the same. Education and support provided related to med management, agreeable to trialing Vyvanse - DC Atomoxetine - trial Vyvanse for poor focus and concentration evaluate it follow-up 08/08/2024 Other - 12/26/2024 Other Engaged individ ual in suicide risk assessment. Provided risk based intervention to ensure saftey and linkage to ongoing services Plan Of Treatment No Information Insurance Providers Payer Name Payer Address Payer Phone Subscriber Number Group Number Insured Name Patient Relationship to Insured Coverage Start Date Coverage End Date [employer] [address] [place] [address] [id number] Shama Godfrey Self - patient is the insured 4 [employer] [address] [place] [address] [id number] Shama Godfrey Self - patient is the insured 4 Medical (General) History Medical History History ICD Code type I diabetes History of frequent kidney infections Surgical History Surgery Date(Month/Year) appendectomy 2013 colonoscopy 2024 Hospitalization History Reason Date(Month/Year) DKA multiple times as a kid child x1 2022
--- OUTSIDE RECORDS SUMMARY | 2025-02-02 13:24 | XMS_ITS | Clinical Summary ---
Author Organization [facility] Address [address] [place] [address] Care Team Providers Care Receiving Distribution Station Operator Name Role Phone Jackelyn Cannon MD Primary Care Provider [phone] Source Comments [facility],non-owned Affiliates and Associated Physician Practices is amultiple site organization consisting of ambulatory clinics and hospital sitesin [place], [place], [place] and [place]. This disclosure is being madepursuant to the Care Everywhere program and may not contain all information available regarding this patient. Last updated 18.[facility] Allergies Active Allergy Reactions Criticality Noted Date Comments Amoxicillin Rash 09/11/2009 Ceftriaxone Anaphylaxis High 10/24/2022 Tolerates PO keflex Medications * This document contains information received from the source organization and may not represent a complete record from that organization. * Be aware that medications may not be up to date on this document. Alwaysverify current medications with the patient. injection device-insulin (HUMAPEN LUXURA HD) device Use. Use to inject 6-7 times daily. 1 Device 0 010 Active lancets (FREESTYLE LITE)Indication s:Type I (juvenile type) diabetes mellitus without mention of complication, not stated as uncontrolled (HCC) for blood glucose monitoring 10 times/day. 200 Each 11 013 Active insulin glargine (LANTUS) injectionIndica tions:Type I (juvenile type) diabetes mellitus without mention of complication, not stated as uncontrolled (HCC) Inject 8 Units subcutaneously at bedtime. 2 Vial 5 013 Active Additional Information Patient taking differently: 12 UnitsSubcutaneousEVERY MORNING, Reported on 05/11/2023 BD INSULIN SYRINGE ULTRAFINE 31G X 5/16 0.5 ML syringeIndicati ons:Type I (juvenile type) diabetes mellitus without mention of complication, not stated as uncontrolled (HCC) For injections 2-3 times daily. 100 Each 11 013 Active acetone,urine, (KETOSTIX) stripIndication s:Type I (juvenile type) diabetes mellitus without mention of complication, not stated as uncontrolled (HCC) Use as directed for urine ketone checks if blood sugar above 250 or if ill. 100 Strip 11 014 Active Insulin Syringe-Needle U-100 (BD INSULIN SYRINGE ULTRAFINE) 31G X 15/64 0.5 ML syringeIndicati ons:Diabetes mellitus type I, controlled (HCC) Use for Lantus injection daily. 100 Syringe 11 016 Active acetone,urine, (KETOSTIX) strip Use as directed for urine ketone checks if blood sugar above 250 or if ill. Please call to schedule appointment. 50 Strip 2 016 Active glucagon (GLUCAGEN) injection Inject 1 mg into muscle as needed 2 Kit 0 016 Active Blood Glucose Monitoring Suppl (TRUE METRIX AIR GLUCOSE METER) W/DEVICE KIT Use as directed 1 Kit 1 016 Active insulin lispro (HUMALOG) 100 UNIT/ML cartridgeIndica tions:Controlle d type 1 diabetes mellitus without complication, with long-term current use of insulin (HCC),Type 1 diabetes mellitus without complication, with long-term current use of insulin (HCC) Inject 1 unit for every 1 grams carbohydrate at meals and snacks or as directed. [facility] [id number] 1 Each 5 016 Active blood glucose (TRUE METRIX BLOOD GLUCOSE TEST) test strip Test blood sugar 10 times daily. Pt is experiencing frequent hypoglycemia. 300 Strip 11 016 Active ONETOUCH DELICA LANCETS 33G MISCIndications :Type 1 diabetes mellitus without complication (HCC) Use 1 Each as directed 200 Each 11 016 Active insulin pen needle (B-D UF III MINI PEN NEEDLES) 31G X 5 MM needleIndicatio ns:Controlled diabetes mellitus type 1 without complications (HCC),Type 1 diabetes mellitus without complication, with long-term current use of insulin (HCC) For injections 4-6 times daily. 200 Each 11 Active acetaminophen (Tylenol) 325 MG tablet Take 2 (two) tablets by mouth every 6 hours as needed Active cetirizine (ZyrTEC) 10 MG tablet Take 1 (one) tablet by mouth at bedtime 30 tablet 11 Active Continuous Blood Gluc Sensor (Dexcom G6 Sensor) MISC USE DIRECTED AND CHANGE EVERY 10 DAYS. Active Continuous Blood Gluc Transmit (Dexcom G6 Transmitter) MISC USE DIRECTED TO MONITOR BLOOD SUGAR. CHANGE EVERY 3 MONTHS Active enalapril (Vasotec) 5 MG tablet Active EPINEPHrine (Epipen) 0.3 MG/0.3ML auto-injector pen Inject 0.3 mL into muscle Active escitalopram (Lexapro) 10 MG tablet Take one 10mg tablet with one 20 mg tablet for a total of 30mg daily. Active escitalopram (Lexapro) 20 MG tablet TAKE 1 TABLET BY MOUTH ONCE DAILY WITH ONE 10MG TO TOTAL 30MG DAILY. Active ferrous sulfate 325 (65 FE) MG tablet Take 1 (one) tablet by mouth Active Gvoke HypoPen 2-Pack 1 MG/0.2ML SOAJ USE IF PT IS UNRESPONSIVE OR HAVING A SEIZURE Active Insulin Disposable Pump (Omnipod 5 G6 Intro, Gen 5,) KIT USE UNDER THE SKIN DAILY FOR INSULIN ADMINISTRATION DIRECTED Active levothyroxine (Synthroid) 112 MCG tablet Active ondansetron, disintegrating, (Zofran ODT) 4 MG tablet Active Basaglar KwikPen (Basaglar) pen ADMINISTER UP TO 50 UNITS UNDER THE SKIN AT THE SAME TIME EVERY DAY DIRECTED Active HumaLOG KwikPen 100 UNIT/ML pen INJECT UNDER THE SKIN DIRECTED WITH MEALS PER SLIDING SCALE. MAX DAILY DOSE OF 100 UNITS. Active gabapentin (Neurontin) 300 MG capsuleIndicati ons:Diabetic Neuropathy,Vanessa pheral Neuropathy Take 1 (one) capsule by mouth 3 times daily Reasons: Diabetes with Nerve Disease, Disease of the Peripheral Nerves 90 capsule 2 023 Active cyclobenzaprine (Flexeril) 5 MG tabletIndicatio ns:Musculoskele rojelio pain Take 1 (one) tablet by mouth 3 times daily as needed 50 tablet 023 Active Active Problems Problem Noted Date Diagnosed Date Type 1 diabetes mellitus 09/17/2007 Overview (03/01/2015): Diagnosed 09/17/2007 Assessment & Plan (05/13/2016 9:02 AM ECHOCARDIOGRAPH TECHNICIAN): 1) increase lantus to 15 units 2) correction scale increase to 0.5 per 50 over 150 3) must call in blood sugars weekly until next visit 4) return in [address] Merida Assessment & Plan (01/23/2016 9:14 AM CDT): 1) Adults are to administer all insulin doses moving forward 2) Humalog is to be given before meals 3) Daily logbook to be kept by mother 4) call in blood sugars on Thursday and then every couple of weeks moving forward 5) must keep appointments at least every 4 months 6) return for Russell in 3 months Assessment & Plan (02/01/2015 9:12 AM CDT): 1) Transition Lantus to bedtime Give tomorrow at 4 am Next day at 1 am Next day 10 pm Then at bedtime 2) change correction to 0.5 per 50 over 150 151-200 0.5 201-250 1 251-300 1.5 301-350 2 351-400 2.5 Over 401 3 3) call blood sugar in next Thursday 4) return for Dr. Pettit in 3 months Assessment & Plan (03/30/2013 9:18 AM CDT): 1) Mother to keep daily written logbook 2) increase Lantus to 11 units 3) increase correction dose to 0.5 per 50 over 150 151-200 add 0.5, 201-250 add 1, 251-300 add 1.5, 301-350 add 2, 351-400 add 2.5, over 401 add 3 units 4) call if blood sugars do not trend in target range 5) return in [address] Gaytan 6) schedule dilated eye exam Immunizations Immunization Administration Dates Next Due INFLUENZA VACCINE 04/09/2010 Social History Tobacco Use Types Packs/Day Years Used Date Smoking Tobacco: Passive Smo ke Exposure - Never Smoker Comments No Sex and Gender Information Value Date Recorded Sex Assigned at Not on file Legal Sex Female 5:44 AM ECHOCARDIOGRAPH TECHNICIAN Gender Identity Not on file Sexual Orientation Not on file Last Filed Vital Signs Vital Sign Reading Time Taken Comments Blood Pressure 110/64 05/11/2023 1:04 PM ECHOCARDIOGRAPH TECHNICIAN Pulse 73 05/11/2023 1:04 PM ECHOCARDIOGRAPH TECHNICIAN Temperature 36.7 C (98 F) 05/11/2023 1:04 PM ECHOCARDIOGRAPH TECHNICIAN Respiratory Rate 16 05/11/2023 1:04 PM ECHOCARDIOGRAPH TECHNICIAN Oxygen Saturation 99% 05/11/2023 1:04 PM ECHOCARDIOGRAPH TECHNICIAN Inhaled Oxygen Concentration - - Weight 50.3 kg (111 lb) 05/11/2023 1:04 PM ECHOCARDIOGRAPH TECHNICIAN Height 154.9 cm (5' 1) 05/11/2023 1:04 PM ECHOCARDIOGRAPH TECHNICIAN Body Mass Index 20.97 05/11/2023 1:04 PM ECHOCARDIOGRAPH TECHNICIAN Plan of Treatment Health Maintenance Due Date Last Done Comments DIABETES RETINOPATHY SCREENING 08/25/2013 HIV SCREENING 2019 HPV VACCINE (1 - 3-dose series) 2019 CHLAMYDIA/GONORRHEA SCREENING 2020 MENINGOCOCCAL (Group B) VACCINE SHARED DECISION-MAKING (1 of 2 - Standard) 2020 HEPATITIS C SCREENING 05/02/2022 DIABETES-FOOT EXAM WITH MONOFILAMENT 2022 DTAP/TDAP/TD VACCINES (1 - Tdap) 2023 HEPATITIS B VACCINE (1 of 3 - 19+ 3-dose series) 2023 PNEUMOCOCCAL VACCINE (1 of 2 - PCV) 2023 DIABETES-HGB A1C 08/15/2023 02/14/2023, , 01/22/2016, Additional history exists DIABETES-SERUM CREATININE 03/19/20242022, 03/16/2023, 03/15/2023, Additional history exists DEPRESSION SCREENING 06/01/2024 DIABETES - URINE PROTEIN SCREENING 06/01/2024 01/22/2016, 01/31/2015, 08/25/2013, Additional history exists COVID-19 VACCINE (2023- season) 2025 INFLUENZA VACCINE (#1) 2025 3, 03/24/2013 (Declined), 04/09/2010 ZOSTER VACCINE (1 of 2) 2054 HIB VACCINE Aged Out No longer eligi ble based on patient's age to complete this topic MENINGOCOCCAL GROUPS A/C/Y/W VACCINE Aged Out No longer eligible based on patient's age to complete this topic Procedures Procedure Name Priority Date/Time Associated Diagnosis Comments HEMOGLOBIN A1C - POCT (IP) [facility] Routine 05/13/2016 8:13 AM ECHOCARDIOGRAPH TECHNICIAN Type 1 diabetes mellitus without complication MICROALB/CREAT RATIO URINE RANDOM PANEL Routine 01/22/2016 8:04 AM CDT Type 1 diabetes mellitus without complication, with long-term current use of insulin BASIC METABOLIC PANEL (CALCIUM TOTAL) STAT 03/01/2014 6:12 AM CDT from Last 3 Months or Most Recently Relevant to Health Maintenance Results * (ABNORMAL) HEMOGLOBIN A1C - POCT (IP) [facility] (05/13/2016 8:13 AM ECHOCARDIOGRAPH TECHNICIAN) Hemoglobin A1c POCT 12.2(A) 3.4 - 6.1 % [facility] POCT TESTING QC Verified Yes Yes [facility] PO CT TESTING Blood BLOOD SPECIMEN / Unknown 05/13/2016 8:13 AM ECHOCARDIOGRAPH TECHNICIAN us Dudley Amaral [employer]LLOWS TESTER-DEPARTMENTAL SECRETARY LAB - POINT OF CARE ORD ERABLES Final Result [facility] POCT TESTING [address] [place] [address], [facility] [phone] * MICROALB/CREAT RATIO URINE RANDOM PANEL (01/22/2016 8:04 AM CDT) Creatinine Urine 40.98 mg/dL 01/22/2016 9:03 AM [facility] Microalbumin Urine 0.5 <1.7 mg/dL 01/22/2016 9:03 AM [facility] Microalbumin/Crea tinine Ratio 12 <30 mg/g 01/22/2016 9:03 AM [facility] Urine URINE SPECIMEN OBTAINED BY CLEAN CATCH PROCEDURE / Unknown 01/22/2016 8:04 AM CDT 01/22/2016 8:14 AM T us Dudley Amaral [employer]-DEPARTMENTAL SECRETARY LAB - URINE CHEMISTRY O RDERABLES Final Result [facility] [place] [address] * (ABNORMAL) BASIC METABOLIC PANEL (CALCIUM TOTAL) (03/01/2014 6:12 AM CDT) Glucose 166(H) 70 - 105 mg/dL 03/01/2014 6:40 AM [facility] Sodium 141 136 - 145 mmol/L 03/01/2014 6:40 AM [facility] Potassium 4.3 3.5 - 5.1 mmol/L 03/01/2014 6:40 AM [facility] Comment:Slightly hemolyzed Chloride 109(H) 98 - 107 mmol/L 03/01/2014 6:40 AM [facility] CO2 20 20 - 28 mmol/L 03/01/2014 6:40 AM [facility] Calcium 8.96(L) 9.12 - 10.48 mg/dL 03/01/2014 6:40 AM [facility] Anion Gap 12 5 - 20 mmol/L 03/01/2014 6:40 AM [facility] BUN 10.1 6.7 - 19.6 mg/dL 03/01/2014 6:40 AM [facility] Creatinine 0.59 0.53 - 0.80 mg/dL 03/01/2014 6:40 AM [facility] eGFR by MDRD mL/min/1. 73m2 03/01/2014 6:40 AM [facility] Comment:eGFR calculations ar e not performed for children under 18 years old. eGFR by MDRD mL/min/1. 73m2 03/01/2014 6:40 AM CDT [facility] Comment:eGFR calculations ar e not performed for children under 18 years old. Blood BLOOD SPECIMEN / Unknown Lab Venipuncture / Unknown 03/01/2014 6:12 AM CDT 03/01/2014 6:15 AM CDT us Raúl Brice MD LAB - CHEMISTRY ORDERABLES Doreen mcclure Result [facility] [address] [place] [address] from Last 3 Months or Most Recently Relevant to Health Maintenance Insurance [facility] SELF PAY NO INSURANCE Member Subscriber Plan / Payer (Ef fective for All Dates) Name:Claudine Steward Member ID:Not on file Relation to Subscriber:Not on file Name:CLAUDINE STEWARD Subscriber ID:Not on file (Home) Address: [address] [place] [id number] Payer ID:Not on file Group ID:Not on file Type:Self Pay Address: [place], [place] [facility] Care Teams Receiving Distribution Station Operator Relationship Specialty Start Date End Date Jackelyn Cannon MD [address] [place] [id number] PCP - General 09/11/09
--- OUTSIDE RECORDS SUMMARY | 2025-02-02 13:25 | XMS_ITS | Clinical Summary ---
Author Organization [facility] osp[facility] Address [address] [place] [address] Care Team Providers [employer] Software Consultant Name Role Phone Nicki Villarreal PhD Unavailable [phone] Jorden Plascencia MD Primary Care Provider [phone] Allergies Active Allergy Reactions Criticality Noted Date Comments Amoxicillin Rash,Unknown,Hives Medium 06/18/2016 12/17/22: Skin testing for penicillins all negative today, so proceeded with amoxicillin 500mg dose challenge, which she tolerated. Ceftriaxone Anaphylaxis High 10/24/2022 Tolerates PO keflex Medications insulin syringe-needle U-100 0.5 mL 31 gauge x 5/16 syringe USE DIRECTED 1-2x per day 06/18/19 17 Active insulin admin supplies insulin pen Please dispense one HUMALOG LUXURA PEN for use with Humalog insulin cartridges 1 each 01/26/20 18 Active EPINEPHrine 0.3 mg/0.3 mL auto-injection syringe Inject 0.3 mL (0.3 mg total) into the muscle as instructed every 5 (five) minutes as needed (anaphylaxis) for up to 2 doses 0.6 mL 10/28/19 23 Active acetaminophen (TYLENOL) 325 mg tablet Take 2 tablets (650 mg total) by mouth every 6 (six) hours as needed for pain 30 tablet 01/24/20 23 Active triamcinolone (KENALOG) 0.1 % cream APPLY TOPICALLY TO THE AFFECTED AREA TWICE DAILY FOR 2 WEEKS Active lancets 33 gauge miscIndications:T ype 1 diabetes mellitus with diabetic polyneuropathy (HCC) Use to check blood glucose levels four times daily. 400 each 1 12/30/19 24 Active ferrous sulfate 325 mg (65 mg of elemental iron) tablet Take 1 tablet (325 mg total) by mouth 12/29/19 24 Active Omnipod 5 G6 Intro Kit, Gen 5, cartridgeIndicati ons:type 1 diabetes mellitus Use as directed with Omnipod 5 Pods for insulin administration under the skin daily. 1 each 02/24/20 24 Active blood-glucose transmitter (Dexcom G6 Transmitter) deviceIndications :Type 1 diabetes mellitus with diabetic polyneuropathy (HCC) Use to monitor blood sugar continuously 1 each 3 02/24/20 24 Active acetone, urine, test stripIndications: Type 1 diabetes mellitus without complication (HCC) Use to test ketones PRN up to 6 times daily. 25 strip 2 06/06/19 25 Active blood-glucose sensor (Dexcom G6 Sensor) deviceIndications :Type 1 diabetes mellitus with diabetic polyneuropathy (HCC) Use as directed. Change sensor every 10 days. 9 each 3 06/07/19 25 Active ondansetron ODT (ZOFRAN-ODT) 4 mg disintegrating tablet Take 1 tablet (4 mg total) by mouth every 8 (eight) hours as needed for nausea or vomiting 20 tablet 07/19/19 25 Active Strattera 18 mg capsule TAKE 1 CAPSULE BY MOUTH DAILY IN THE MORNING Active cloNIDine (CATAPRES) 0.1 mg tablet Take 1 tablet (0.1 mg total) by mouth 3 (three) times a day as needed 07/07/19 25 Active cyclobenzaprine (FLEXERIL) 10 mg tablet Take 1 tablet (10 mg total) by mouth every 12 hours 07/11/19 25 Active indomethacin (INDOCIN) 25 mg capsule Take 1 capsule (25 mg total) by mouth 3 (three) times a day as needed for pain Stop Ibuprofen. 30 capsule 10/11/19 25 Active insulin pump cart,auto,BT,G6/7 (Omnipod 5 G6-G7 Pods, Gen 5,) cartridgeIndicati ons:Type 1 diabetes mellitus without complication (HCC) Use to administer Humalog continuously; replace pod every 3 days. 30 each 1 10/12/19 25 Active lidocaine (LIDODERM) 5 % Place 2 patches on the skin as needed for pain (placed on feet when working) 11/17/19 25 Active blood glucose diagnostic stripIndications: Type 1 diabetes mellitus with diabetic polyneuropathy (HCC) Use to check blood glucose levels four times daily. 400 strip 1 11/27/19 25 Active blood-glucose meter kitIndications:Ty pe 1 diabetes mellitus with diabetic polyneuropathy (HCC) Use to check blood glucose levels four times daily. 1 kit 11/27/19 25 Active insulin lispro (HumaLOG, ADMELOG) 100 unit/mL pen for injectionIndicati ons:Type 1 diabetes mellitus without complication (HCC) Inject 4 Units under the skin 3 (three) times a day with meals (plus blood glucose mg/dL 150-199: 1 unit, 200-249: 2 units, 250-299: 3 units, 300-349: 4 units, 350 or greater: 5 units. Notify provider for blood glucose greater than 299 mg/dL. Max daily dose 27units) Refer to After Visit Summary for Sliding Scale Insulin Instructions. 3.6 mL 11/27/19 25 Active pen needle, diabetic 32 gauge x 1/4 needleIndications :Type 1 diabetes mellitus without complication (HCC) Use to administer insulin 4 times daily. 200 each 5 11/27/19 25 Active insulin glargine 100 unit/mL (3 mL) pen for injection Inject 20 Units under the skin daily 6 mL 11/27/19 25 Active glucagon (Gvoke HypoPen 2-Pack) 1 mg/0.2 mL auto-injectorIndi cations:Type 1 diabetes mellitus without complication (HCC) Use if patient in unresponsive or having a suziure 1 mL 2 01/24/20 25 Active glucagon (Gvoke HypoPen 2-Pack) 1 mg/0.2 mL auto-injectorIndi cations:Type 1 diabetes mellitus without complication (HCC) Use if patient in unresponsive or having a suziure 1 mL 2 08/05/19 23 2024 Discontin ued(Reord er) nirmatrelvir 300 mg-ritonavir 100 mg (PAXLOVID 300mg-100 mg) tablets,dose pack tablets in a dose pack Take 300 mg nirmatrelvir (2 x 150 mg tablets) with 100 mg ritonavir (1 x 100 mg tablet) with all three tablets taken together by mouth twice daily for 5 days. 30 tablet 01/25/20 25 2024 Active Problems Problem Noted Date Diagnosed Date Conversion reaction 11/26/2024 Psychogenic nonepileptic seizure 11/14/2023 Assessment & Plan (11/19/2023 11:40 AM CDT): History of seizure disorder, last seizure prior to these last few days was in 2021 per patient. She does not take anti-epileptic medications. Witnessed spells prior to admission and since being admitted that are consistent with non-epileptic events -MRI and EEG normal -neurology has seen, plan for clinic follow-up. No need for AEDs Syncope and collapse 11/14/2023 CKD (chronic kidney disease) stage 1, GFR 90 ml/min or greater 09/25/2023 Anemia of 09/23/2023 Overview (09/23/2023): 8.7- IV iron Monosomy X 09/23/2023 Overview (09/23/2023): high risk for by NIPT- MFM - AMNIO NEG Persistent proteinuria 04/30/2023 Back pain 03/16/2023 Assessment & Plan (03/18/2023 11:11 AM CDT): -likely musculoskeletal pain -L-spine MRI negative for infection Murmur, heart 02/19/2023 Assessment & Plan (02/21/2023 9:38 AM CDT): - TTE 01/14/23 LV size is normal. LVEF 63%. Normal RV function. No significant valve disease. Unable to estimate PASP due to lack of adequate TR jet. Normal RA pressure. - Repeat (02/21) without vegetation, EF 53% Severe pre-eclampsia, with delivery 02/04/2023 Overview (02/04/2023): - Current regimen: nifedipine 120mg XL daily, enalapril 2.5mg, labetalol 800mg TID Plan - continue to take BPs daily - APLS testing at next visit Assessment & Plan (03/15/2023 1:36 AM CDT): History of preeclampsia with severe features Not on meds, resolved as per patient In the last admission, Obstetric consulted in ED, consider to resume nifedipine 60 mg XL if if blood pressure more than 140/90 Assessment & Plan (02/19/2023 5:29 PM CDT): History of preeclampsia with severe features Home regimen of nifedipine 120 mg XL, labetalol 800 mg t.i.d., enalapril 2.5 mg b.i.d. however patient is not using any of dose since her last hospitalization as she was noted normotensive throughout. Obstetric consulted in ED, consider to resume nifedipine 60 mg XL if if blood pressure more than 140/90 BP stable at present, no indication for Rx at this time care following vaginal delivery 01/15 Overview (01/17/2023): # ID: Afebrile. No signs/symptoms of infection. #VZV nonimmune. For varivax # Heme: EBL 200 mL. No symptoms acute blood loss anemia. # CV/Pulm: # PreE w/ SF: Pre-eclampsia without severe features - Nifedipine XL started due to persistently MR BPs. Current regimen: Nifedipine 60mg XL (^01/17). Asymptomatic, denies CARRANZA/RUQ pain/vision changes. For enrollment in home BP monitoring prior to discharge. # T1DM: Patient w/ history of T1DM on insulin pump during . Prepregnancy regimen: Basaglar 23 (AM), I:C Breakfast 1:10, Lunch 1:10, Dinner 1:10 correction 50, Target 150. Endocrine consulted . Current regimen: Time Basal Rate ISF ICR BG Target 0000 0.5 1:50 1:10 110 0800 0.5 1:50 1:10 110 1200 0.5 1:50 1:10 110 2000 0.5 1:50 1:10 110 [email or web address] Share Code: [id number]. Continue pre- and post-prandial, 2100, 0200 POCT BG during admission. # Depression: Lexapro 20mg continued in period. Will need to re- address and administer EPDS before discharge. For consult. # Hypothyroid: On synthroid 112mcg daily during . Prepregnancy regimen appears to be no meds. Per endocrine, likely subclinical hypothyroidism. Recommend test of anti-thyroid abs with consideration of trial of slow withdrawal from therapy over 12 months if negative. Will continue synthroid in the period for now. # rUTIs: History of Rissa and multiple episodes of pyelo. # GI/: Tolerating PO. Voiding spontaneously. #HENRRY: Cr uptrending, most recently 1.6. Received 500cc bolus 01/15, consider renal US if not improved. 01/16: Cr downtrending to 1.52 and 1.26 (01/17). Patient s/p CT renal stone protocol 01/13. # Pain: Controlled with above regimen. # MOC: s/p hormonal IUD placement. # MOF: . Urine drug screen not indicated. Patient informed of results: N/A. # Post DVT prophylaxis: The patient has the following MAJOR risk factors prolonged labor OR antepartum admission >72h immediately prior to delivery and the following MINOR risk factors preeclampsia. enoxaparin 40 mg daily ordered for VTE prophylaxis. # Disposition: Follow up task sent to [facility] scheduling pool. Continue routine care. Insulin pump in place 11/06/2022 Allergy status to other antibiotic agents 2022 Overview (11/24/2022): - Patient with concern for anaphylaxis while hospitalized on 10/24 to unknown allergen - s/p immunology consult as inpatient Plan [x] alpha-gal work-up negative See allergy on 12/11 Pyelonephritis 10/22/2022 Assessment & Plan (03/20/2023 11:30 AM CDT): -MSSA pyelonephritis; failed recent oral antibiotic treatment -continue Ancef for now; place PICC for anticipated home IV antibiotics -> plan Ancef until 03/30/23 -I will d/w ID re: suppressive antibiotics after completing Ancef as recommended by urology -Appreciate urology recs. -No reflux noted on VCUG Assessment & Plan (02/22/2023 7:16 AM CDT): Persistent bilateral flank pain, now with lower abdominal pain, fevers. Failed initial therapy with Keflex (although culture was sensitive). CT abdomen pelvis with persistent bilateral pyelonephritis and pyelitis, without development of perinephric or renal abscess. Hx of frequent recurrent UTIs, multiple bouts of Pyelo. Follows with Peds ID as outpatient. Most recently on an extended course of IV antibiotics for difficult to treat Pyelo in November of this year with Ertapenem x 14 days, followed by Bactrim. - ID consulted: Continue Ertapenem; repeat BCx and TTE completed and negative - Discharge with Bactrim for 10 days - Cont Pain control with Tylenol 1 g Q 6, oxycodone 5 mg q.4 hours p.r.n. Offer Antiemetics PRN. - Refer to urology on discharge Anemia 10/03/2022 Overview (02/04/2023): - Patient with hemolytic anemia 2/2 pyelonephritis with transfusion of 2 units of PRBCs 08/2022 - Ferritin previously elevated - Likely also a component of chronic disease - Hgb increased to 10.0 on 01/24 Plan - Continue to monitor Assessment & Plan (11/16/2023 5:04 PM CDT): -continue ferrous sulfate Assessment & Plan (10/06/2022 1:52 PM CDT): Will check CBC today given that she complains of occasional lightheadedness Type 1 diabetes mellitus 09/21/2022 Overview (02/04/2023): First documented in 2007. Last hemoglobin A1C: 7.6 on 10/06/22 Admission for DKA 09/21/2022-09/27/2022. On insulin pump. Pt missed endocrine appt on 02/03, was not aware she had an appt. Provided phone number to reschedule. A&P: - Finger stick 157, no ketones on UDip - Changed insulin to carb ratio from 1:15 to 1:18 iso postprandial hypoglycemia and pumping Assessment & Plan (03/19/2023 10:27 AM CDT): Type 1 diabetes mellitus, on insulin pump at home Cont insulin pump Assessment & Plan (02/21/2023 9:38 AM CDT): Type 1 diabetes mellitus on insulin pump. On admission with anion gap of 16, blood glucose of 411, beta hydroxybutyrate 4.3, mild DKA likely related to UTI. S/p SQUID protocol and now on home pump. - Endocrine consulted, discussed recs (See detailed outline for recs in consult note dated 02/19). - Has Pump supplies and Dexcom G6 - Continue gabapentin for neuropathy Hypothyroidism 08/28/2022 Overview (02/04/2023): History Subclinical diagnosed based on TSH 5.06, T4 normal, briefly discussed management in . Started on Synthroid 50 mcg qD by endocrinology. 10/06/2022: TSH 1.92 (wnl) 12/22/2022: TSH 3.20 Current dose: 01/12/2023 100mcg Plan - Follow with endocrinology Assessment & Plan (11/16/2023 5:05 PM CDT): -continue synthroid Assessment & Plan (03/16/2023 2:43 PM CDT): levothyroxine 112 mcg daily Assessment & Plan (02/21/2023 7:23 AM CDT): - Continue levothyroxine 112 mcg daily. Assessment & Plan (01/12/2023 1:38 PM CDT): TSH in [facility] today Assessment & Plan (12/22/2022 2:17 PM CDT): Current dose: 11/24/2022: Increased to 75mcg TSH Goal: First trimester: 0.1-2.5 mIU/L Second trimester: 0.2-2.5 mIU/L Third trimester 0.3-2.5 mIU/L Plan - continue current LT4 dose - Repeat TFTs sent today Assessment & Plan (10/06/2022 1:49 PM CDT): On Synthroid 50mcg daily. TSH level ordered today. Goal: 0.2-2.5 mIU/L in second trimester. Assessment & Plan (09/20/2022 1:21 AM CDT): History Subclinical diagnosed based on TSH 5.06, T4 normal, briefly discussed management in . Started on Synthroid by endocrinology. TSH Goal: First trimester: 0.1-2.5 mIU/L Second trimester: 0.2-2.5 mIU/L Third trimester 0.3-2.5 mIU/L Plan - continue current LT4 dose (50mcg), re-check around 425 -- draw TSH at next visit - monitor TSH q trimester or 4w after any dose changes Assessment & Plan (09/05/2022 6:12 PM CDT): Subclinical diagnosed based on TSH 5.06, briefly discussed management in . Started on Synthroid by endocrinology. TSH Goal: First trimester: 0.1-2.5 mIU/L Second trimester: 0.2-2.5 mIU/L Third trimester 0.3-2.5 mIU/L Plan: - continue current LT4 dose (50mcg), re-check around 25 - monitor TSH q trimester or 4w after any dose changes Frequent urinary tract infections 08/17/2022 Overview (01/12/2023): History Shama sees pediatric ID for frequent UTIs. Her history is as follows: 03/10/19:<10 K GBBS 12/10/21: 10-100K GBS 02/07/22 > 100K E coli 06/11/22: >100 K E coli pans cupectible 07/03/22: E coli treated with Keflex 500 BID for 5 days 09/21-09/27: Admission for DKA I/s/o pyelonephritis while on Macrobid suppression (states was taking daily). Treated with Ceftriaxone > Bactrim 10/22-10/27: Admission for pyelonephritis. E. Coli resistant to Macrobid. Possible allergic reaction to CTX. Discharged on bactrim. 11/13: E. Coli sensitive to Macrobid. Treated with Bactrim 11/28: Ucx at [facility] contaminated with mixed genital yany Admitted 12/07-12/11 with pyelonephritis, E coli. Treated with erta 1000 mg IV q24h for 14 days total (through 12/21/22). For prophylaxis with bactrim following. 01/11: treated for UTI at [facility] with gentamicin x 4 doses She had a normal renal ultrasound on 07/03/22 and 12/07/22 Plan [x] Per ID consult note, transitioned to Cephalexin for suppression (500mg nightly) Saw allergy team for cephalosporin allergy (previous PCN allergy cleared however confirmatory testing for ceftriaxone to be done ). Assessment & Plan (12/22/2022 2:51 PM CDT): History Shama sees pediatric ID for frequent UTIs. Her history is as follows: 03/10/19:<10 K GBBS 12/10/21: 10-100K GBS 02/07/22 > 100K E coli 06/11/22: >100 K E coli pans cupectible 07/03/22: E coli treated with Keflex 500 BID for 5 days 09/21-09/27: Admission for DKA I/s/o pyelonephritis while on Macrobid suppression (states was taking daily). Treated with Ceftriaxone > Bactrim 10/22-10/27: Admission for pyelonephritis. E. Coli resistant to Macrobid. Possible allergic reaction to CTX. Discharged on bactrim. 11/13: E. Coli sensitive to Macrobid. Treated with Bactrim 11/28: Ucx at [facility] contaminated with mixed genital yany Admitted 12/07-12/11 with pyelonephritis, E coli. Treated with ertapenem 1000 mg IV q24h for 14 days total (through 12/21/22). Now on bactrim prophylaxis following. She had a normal renal ultrasound on 07/03/22 and 12/07/22 Plan [] Continue Bactrim suppression: Per ID consult note, could consider Cephalexin as well for suppression: consider transition at 32 weeks [x] Allergy team for cephalosporin allergy: seen,previous PCN allergy cleared however confirmatory testing for ceftriaxone to be done [] PICC removal: home health to remove 12/22/22, ensure completion Assessment & Plan (10/06/2022 1:50 PM CDT): Shama was admitted with pyelonephritis and subsequent DKA in August. She is completing Bactrim. She will transition to Keflex for suppression as she had pyelo while on Macrobid suppression. Notably, she had hemolytic anemia while inpatient. Will check CBC today given that she complains of occassional lightheadedness. Assessment & Plan (09/20/2022 1:22 AM CDT): History Shama sees pediatric ID for frequent UTIs. Her history is as follows: 03/10/19:<10 K GBBS 12/10/21: 10-100K GBS 02/07/22 > 100K E coli 06/11/22: >100 K E coli pans cupectible 07/03/22: E coli treated with Keflex 500 BID for 5 days She had a normal renal ultrasound on 07/03/22. Counseling Completed counseling with MFM. Given her frequent UTIs, we discussed Macrobid suppression for the duration of . Plan - Macrobid 100 mg daily for suppression Assessment & Plan (09/05/2022 6:10 PM CDT): History of multiple prior UTIs outside of jesusita one in (see Problem List for additional details). Has had had a normal renal ultrasound (07/03/2022). S/p counseling with MFM. Given her frequent UTIs, plan for Macrobid suppression for the duration of . Plan: - Macrobid 100 mg daily for suppression Anxiety and depression 08/17/2022 Overview (02/04/2023): History Adjustment disorder with mixed anxiety and depression. At the beginning of , she reported being more irritable and less interested in things she used to enjoy, trouble concentrating, more mood lability. Had thoughts of hurting herself a few months prior to . She was seeing a therapist but stopped due to billing issues (last session 06/09/22). She was not on medications at the start of , was started on Lexapro by [facility]. Expressed interest in seeing psychiatry, as well. EPDS 10 today Counseling S/p counseling 08/14 Plan - Has been on Lexapro 20 mg, increased to 30mg - Check mood q visit - Referral to psychiatry or PN depending on insurance Assessment & Plan (11/19/2023 10:58 AM CDT): -continue fluoxetine, latuda, trazodone at bedtime prn. Added back home hydroxyzine PRN for anxiety Assessment & Plan (03/16/2023 2:43 PM CDT): Lexapro 30 mg daily. Assessment & Plan (02/21/2023 7:23 AM CDT): - Continue Lexapro 30 mg daily. Assessment & Plan (12/22/2022 2:47 PM CDT): Shama continues on Lexapro 20mg daily, increased during her inpatient admission Assessment & Plan (10/06/2022 1:52 PM CDT): Mood stable on Lexapro 10mg daily. Assessment & Plan (09/20/2022 1:24 AM CDT): History Adjustment disorder with mixed anxiety and depression. At the beginning of , she reported being more irritable and less interested in things she used to enjoy, trouble concentrating, more mood lability. Had thoughts of hurting herself a few months prior to . She was seeing a therapist but stopped due to billing issues (last session 06/09/22). She was not on medications at the start of , was started on Lexapro by [facility]. Expressed interest in seeing psychiatry, as well. Counseling S/p counseling 08/14 Plan - Continue Lexapro 10 mg, consider up-titration pending mood - Check mood q visit - Unable to have consult with PN due to [place] insurance - Referral to psychiatry placed Assessment & Plan (09/05/2022 6:08 PM CDT): Adjustment disorder with mixed anxiety and depression. S/p counseling 08/14/2022, started on low dose of Lexapro. Plan: - Continue Lexapro 10 mg, consider up-titration pending mood at next visit - Check mood q visit - Unable to have consult with [facility] due to [place] insurance - Referral to psychiatry placed Positive autoantibody screening for celiac disea se 03/05/2017 09/25/2022 Resolved Problems Problem Noted Date Diagnosed Date Resolved Date Hyperglycemia 11/17/2023 11/19/2023 Acute cystitis with hematuria 11/16/2023 11/19/2023 Assessment & Plan (11/18/2023 3:41 PM CDT): -Urine culture with insignificant growth. D/c abx -PVR with 0 mL Risk of labor in third trimester 01/12/2023 02/04/2023 Excessive growth affec ting management of in third trimester 12/22/2022 02/05/20 23 Overview (01/12/2023): Growth 12/22 1620g, 88%ile, AC 96%ile Growth 01/12 2527, 98%ile, AC >99%ile Discussed this can be an effect of elevated blood glucoses. We will continue to work to titrate insulin and monitor growth on growth ultrasounds every 4 weeks. Assessment & Plan (12/22/2022 2:16 PM CDT): Growth 12/22 1620g, 88%ile, AC 96%ile Discussed this can be an effect of elevated blood glucoses. We will continue to work to titrate insulin and monitor growth on growth ultrasounds every 4 weeks. Diabetic ketoacidosis withou t coma associated with type 1 diabetes mellitus 12/07/2022 11/19/2023 Assessment & Plan (11/19/2023 10:59 AM CDT): Follows with Endocrinology outpatient, used insulin pump for medication delivery previously, though she reports this has been off until she can follow up with her Endo. Reports that glucose levels typically run in the 180-low 200 range at home. Glucose on arrival 512 with anion gap 15. Also reports neuropathy for which she takes gabapentin, proteinuria for which she takes lisinopril. -Started on SQuID protocol in ED, received Lantus after gap closed. Had to go back on SQUID on Thursday for severe hyperglycemia. Now back on basal/bolus -Endocrine following, adjusting regimen for discharge today -continue lisinopril, gabapentin on discharge NIPT high risk for monosomy X 08/28/2022 02/04/2023 Overview (12/04/2022): S/p amnio with normal CPC. Assessment & Plan (12/22/2022 2:48 PM CDT): S/p amnio with normal CPC. Assessment & Plan (10/06/2022 1:54 PM CDT): Discussed again finding of Monosomy X on NIPT. Ultrasounds at 13 weeks and today without any suggestion of Mendenhall's syndrome. She is aware that many of these markers may not be seen until later in . After discussion with her partner, she desires an amniocentesis. We reviewed the risks and benefits of that procedure today. Will request prior authorization and plan for amniocentesis with anatomy completion next week. Additionally offered genetic counseling prior to procedure, which she accepts. Assessment & Plan (09/20/2022 1:26 AM CDT): History and Counseling S/p counseling with M on 08/28/2022 regarding NIPT results with high risk of monosomy X. We reviewed that false positive results are possible due to maternal mosaicism, placental mosaicism and incorrect result. Ultrasound does not detect all fetuses with monosomy X but many will have abnormal findings. Monosomy X or Mendenhall's syndrome can have a wide spectrum of disease including appearance changes (short stature, shield chest), congenital heart anomalies, kidney anomalies, diabetes, hypothyroidism, normal or below normal intellect, and premature ovarian failure. Ultrasound performed 09/05/2022 at 13w5d does not show any anatomic abnormalities within the limits of ultrasound for this early gestational age. She was offered genetic counseling and diagnostic testing with [facility] or amniocentesis. After counseling, she would like to do an early anatomy ultrasound and decide based on this scan whether she would like to pursue amniocentesis. We reviewed that some of the complications associated with Mendenhall syndrome, including coarctation of the aorta, may not be seen until later in the due to imaging properties and heart size. Plan - Specialized anatomic survey at 18-20 weeks - echocardiogram at 20-22 weeks (also for diabetes) - Are consider amniocentesis pending anatomy scan results, have proceeded with obtaining approval for this procedure Assessment & Plan (09/05/2022 6:06 PM CDT): S/p counseling with M on 08/28/2022 regarding NIPT results with high risk of monosomy X. We reviewed again today that false positive results are possible due to maternal mosaicism, placental mosaicism and incorrect result. Ultrasound does not detect all fetuses with monosomy X but many will have abnormal findings. Monosomy X or Mendenhall's syndrome can have a wide spectrum of disease including appearance changes (short stature, shield chest), congenital heart anomalies, kidney anomalies, diabetes, hypothyroidism, normal or below normal intellect, and premature ovarian failure. Ultrasound performed 09/05/2022 at 13w5d does not show any anatomic abnormalities within the limits of ultrasound for this early gestational age. She was offered genetic counseling and diagnostic testing with [facility] or amniocentesis. Discussed that we recommend confirming diagnosis prior to making decision about continuing vs. ending the given risk of false positive with a screening test. After discussion 09/05/2022, Shama and her partner would like to do an early anatomy ultrasound and get the anatomic information. We reviewed that some of the complications associated with Mendenhall syndrome, including coarctation of the aorta, may not be seen until later in the due to imaging properties and heart size. Based on the ultrasound results at the anatomy scan, they will decide if they would like to pursue diagnostic testing with amniocentesis. Plan: - Full specialized anatomic survey at 18-20 weeks - echocardiogram at 20-22 weeks - Are consider amniocentesis pending anatomy scan results, will proceed with obtaining approval for this procedure Assessment & Plan (08/29/2022 10:01 AM CDT): Will schedule 12-13w US (patient will call if she wants [facility] instead). US today without obvious cystic hygroma but limited due to resolution. Pre-existing type 1 diabetes affecting , antepartum 08/18/2022 10/03/2022 complicated by pre -existing type 1 diabetes in third trimester 08/11/2022 02/04/2023 Overview (01/11/2023): First documented in 2007. History of DKA? Multiple events this with pyelo Last hemoglobin A1C: 7.1 on 12/07 Periconception A1C: 9.8 on 08/19/22 Pre- regimen: Basaglar 23 (AM), I:C Breakfast 1:10, Lunch 1:10, Dinner 1:10 Correction 50, Target BG 150 Dexcom Share Code: [email or web address] Endo: Dr. Bethea managing currently MFM to follow endo changes for comanaged care [place]: Username: [email or web address]! Current Pump Settings: 01/09/2023- Endo Time Basal Rate ISF ICR BG Target Insulin Duration 0000 1.1 > 1.2 30>25 6 > 5 110 3 hrs 0800 1.1 > 1.2 30>25 6 > 5 110 3 hrs 1200 1.1 > 1.2 30>25 5 > 4 110 3 hrs 2030 1.1 > 1.2 30>25 5 > 4 110 3 hrs Basal rate increased to to 1.[address] Bethea to keep up with her basal on automode Plan: [x] Counseling performed 08/14 [] Recommend weekly review of CGM by MFM (notably endocrine is adjusting pump settings q2-4w with telehealth visits) [x] Glucagon Rx provided [] Comprehensive eye exam, referral for ophthalmology, missed last appt -- Reiterated 12/04/22 [x] Baseline CMP: WNL, UPC: 382, EKG, TSH: 5.06 Free T4: 1.02-- completed on 08/19/2022 [x] Recommend HbA1c at least each trimester 08/19: 9.8 [x] Second trimester 7.6 on 10/06/22 [x] Third trimester 7.1 on 12/07/2022 [x] Baseline EKG -- 3/20 inpatient, in cardiology tab [x] Recommend low dose ASA given increased risk of preeclampsia starting at 12w - taking [x] Specialized anatomy ultrasound at 18-20 weeks: 10/06/2022, completed 10/22 [] echocardiogram at 22-24 weeks (if Hgb A1C >8.5%): Indicated, patient needs to reschedule, reminded today [] Serial growth scans starting at 24 weeks [] surveillance starting at 32w or sooner prn suboptimal glycemic control: Shama reaching out to primary OB to set up twice weekly NSTs [] Delivery by 37-39 weeks pending glycemic control Assessment & Plan (12/22/2022 2:50 PM CDT): First documented in 2007. History of DKA? Multiple events this with pyelo Last hemoglobin A1C: 7.1 on 12/07 Periconception A1C: 9.8 on 08/19/22 Current Pump Settings: 12/22/22 Time Basal Rate ISF ICR BG Target Insulin Duration 0000 1.0 40>35 6 110 3 hrs 0800 1.0 40>35 6 110 3 hrs 1200 1.0 40>35 6 110 3 hrs 2030 1.0 40>35 6 110 3 hrs Basal rate increased to to 1.[address] Bethea to keep up with her basal on automode - Will plan for weekly MFM glucose review. Encouraged to reschedule with Dr. Bethea (she did not see her last message from early November until today) - Needs eye exam - Encouraged rescheduling of echo today and RN reached out to echo scheduling team - Continue serial growth ultrasounds - Plans for NSTs with primary OB: Shama will reach out to schedule these Assessment & Plan (12/04/2022 2:27 PM CDT): CGM reviewed, above changes recommended Assessment & Plan (10/06/2022 1:48 PM CDT): 09/21-09/27: admission for DKA I/s/o pyelonephritis. Seen by endocrine with significant changes to pump settings Today, having highs with meals with reflexive lows. Discussed dietary modifications: she has been eating things like cereal when she sees these spikes. Will plan for slight increase to overnight basal, mild liberalization of carb ratios with meals Current Pump Settings: 10/06/22 Time Basal Rate ISF ICR BG Target Insulin Duration 0000 0.5>0.6 50 9>10 110 3 hrs 0800 0.5>0.6 50 10>11 110 3 hrs 0900 1.25 50 10>11 110 3 hrs 1200 1.25 50 10>11 110 3 hrs 1630 0.9 50 10>11 110 3 hrs 2030 0.7 50 9>10 110 3 hrs Reiterated importance of eye exam today with her history of diabetic retinopathy. Referred to our group. Referred for echo. Shama has Glucagon at home. Will check HbA1C with labs today. Assessment & Plan (09/20/2022 1:19 AM CDT): First documented in 2007. History of DKA? Yes, last 04/22/22 Last hemoglobin A1C: 9.8 on 08/19/22 Pre- regimen: Basaglar 23 (AM), I:C Breakfast 1:10, Lunch 1:10, Dinner 1:10 Correction 50, Target BG 150 Dexcom Share Code: [email or web address] Lucinda: [email or web address] username [email or web address] 08/14: s/p counseling 08/28: no changes given just adjusted by endocrine on 08/27, has not started pump yet but planning to start on 08/30 09/05: noting overnight hypoglycemia, however planning to start pump today (has all supplies). Will not make adjustments to her subQ regimen given going to start pump. 09/08: changed by endocrine to pump 09/19/2022: increased ICR overnight Current Pump Settings: Time Basal Rate ISF ICR BG Target Insulin Duration 0000 0.5 50 10>9 110 3 hrs 0800 0.5 50 8 110 3 hrs 0900 1.25 50 8 110 3 hrs 1200 1.25 50 10 110 3 hrs 1430 0.95 50 10 110 3 hrs 2030 0.7 50 10>9 110 3 hrs Total: 19.525 daily basal Plan: [x] Counseling performed 08/14 [] Recommend weekly review of CGM [] Glucagon Rx provided [] Comprehensive eye exam, referral for ophthalmology -- placed 08/14, diagnosed with diabetic retinopathy in July 2021 per report, though do not have record of this. Provided with number to call on 09/05/2022 and again 09/19/2022 [x] Baseline CMP: WNL, UPC: 382, EKG, TSH: 5.06 Free T4: 1.02-- completed on 08/19/2022 [x] Recommend HbA1c at least each trimester 08/19: 9.8 [] Second trimester [] Third trimester [x] Baseline EKG -- 08/18 inpatient, in cardiology tab [x] Recommend low dose ASA given increased risk of preeclampsia starting at 12w - taking [] Specialized anatomy ultrasound at 18-20 weeks: scheduled for 10/06/2022 [] echocardiogram at 22-24 weeks (if Hgb A1C >8.5%): indicated [] Serial growth scans starting at 24 weeks [] surveillance starting at 32w or sooner prn suboptimal glycemic control [] Delivery by 37-39 weeks pending glycemic control Assessment & Plan (09/05/2022 6:00 PM CDT): Diagnosed in 2007, history of DKA. Last hemoglobin A1C: 9.8 (08/19/2022). Pre- regimen: Basaglar 23 (AM), I:C Breakfast 1:10, Lunch 1:10, Dinner 1:10 Correction 50, Target BG 150 Current regimen: Basaglar 18, I:C Breakfast 1:8, Lunch 1:10, Dinner 1:10 Correction 1:50, Target BG 110 Log-in information for Dexcom in Problem List. Today, noting overnight hypoglycemia, however planning to start pump today (has all supplies). Will not make adjustments to her subQ regimen given going to start pump. Settings are noted below. Pump Settings: Time Basal Rate ISF ICR BG Target Insulin Duration 0000 0.8 50 10 110 - 110 3 hrs 800 0.8 50 8 110 - 110 3 hrs 12pm 0.8 50 10 110 - 110 3 hrs Total basal 19.2 Plan: [x] Counseling performed 08/14 [] Recommend weekly review of CGM [] Glucagon Rx provided [] Comprehensive eye exam, referral for ophthalmology -- placed 08/14, diagnosed with diabetic retinopathy in July 2021 per report, though do not have record of this. Provided with number to call on 09/05/2022 [x] Baseline CMP: WNL, UPC: 382, EKG, TSH: 5.06 Free T4: 1.02-- completed on 08/19/2022 [x] Recommend HbA1c at least each trimester 08/19: 9.8 [] Second trimester [] Third trimester [x] Baseline EKG -- 08/18 inpatient, in cardiology tab [x] Recommend low dose ASA given increased risk of preeclampsia starting at 12w - taking [] Specialized anatomy ultrasound at 18-20 weeks: scheduled for 10/06/2022 [] echocardiogram at 22-24 weeks (if Hgb A1C >8.5%) [] Serial growth scans starting at 24 weeks [] surveillance starting at 32w or sooner prn suboptimal glycemic control [] Delivery by 37-39 weeks pending glycemic control Supervision of high-risk pre gnancy, first trimester 08/11/2022 02/04/2023 Overview (01/12/2023): [x] Co-management vs. [] Full MFM Care; [x] Red Team [] Blue Team Referring Provider: Jennifer Haynes (Endo) [phone] OB: [facility]: [phone] [] or Medicare Insurance [x] Dating Criteria: EWA 03/08/23 based on 6w US (Media tab) [x] Labs: Rh [O positive], Ab [negative], Rubella [immune], HIV [NR], HepBSAg [non-reactive], RPR [NR ], Hep C [negative 07/2022], Varicella [non- reactive], GC/CT/Trich [all negative] [x] Genetic Screening: NIPT positive of Monosomy X; 10/27 Amniocentesis wnl, negative Monosomy X [x] CBC/Hgb 10.1/31.4/499K [x] Early 1hr GTT (if indicated): NA, T1DM, A1C: 9.8 [x] UCx: no growth [x] Pap: not indicated based on age [x] LD ASA (if indicated) starting at 12 weeks: recommended, taking [] EPDS [ ]; PNBHS referral (if indicated) 2nd Tri Labs: [x] Anatomy ultrasound: 10/06/22: Completed 10/22 [x] CBC/Ferritin at 24-28wks: Hgb 10.0 11/13, ferritin previously elevated [] Flu Shot (Jan-May): [x] Tdap (27-36wks): 12/22/2022 MM [] COVID Vaccine: [] Rhogam at 28 wks (if Rh neg): 3rd Tri Labs: [] CBC/HIV/RPR/T&S: to obtain in [facility] [] TSH: to obtain in [facility] [] GBS: [] GC/CT (if indicated): [] testing: Counseling [] MOD: [] Place of delivery: [facility] [] Last clinic visit SVE: [] IOL start agent: [] Epidural: [] Consents signed: [] MOC: Considering depo vs. LNG IUD [] Method of feeding: [] Edge Burnisher Uppers: [] PP Depression Discussed: Assessment & Plan (12/22/2022 2:46 PM CDT): Tdap offered and accepted today. Hgb 10.0. Discussed contraception: considering IUD vs. Depo. Assessment & Plan (10/06/2022 1:51 PM CDT): Anatomy ultrasound today, unable to be completed. Notably, unable to visualize sacral spine. For completion in 1 week. Assessment & Plan (09/20/2022 1:28 AM CDT): Discussed conservative measures for LUQ pain/squeezing sensation. Given history or prior UTIs, discussed risk of pyelo and if she experiences fevers, chills, acute or worsening back pain would recommend evaluation. Patient expressed understanding. [x] Co-management vs. [] Full M Care; [] Red Team [x] Blue Team Referring Provider: Jennifer Haynes ([place]) [phone] OB: [facility] [place]: [phone] [] or Medicare Insurance [x] Dating Criteria: EWA 03/08/23 based on 6w US (Media tab) [x] Labs: Rh [O positive], Ab [negative], Rubella [immune], HIV [NR], HepBSAg [not done - draw at next visit], RPR [NR ], Hep C [not done - draw at next visit], Varicella [non-reactive], GC/CT/Trich [all negative] [x] Genetic Screening: NIPT positive of Monosomy X [x] CBC/Hgb 10.1/31.4/499K [x] Early 1hr GTT (if indicated): NA, T1DM, A1C: 9.8 [x] UCx: no growth [x] Pap: not indicated based on age [x] LD ASA (if indicated) starting at 12 weeks: recommended, taking [] EPDS [ ]; PNBHS referral (if indicated) 2nd Tri Labs: [] Anatomy ultrasound: scheduled for 10/06/2022 [] CBC/Ferritin/1hr gtt at 24-28wks: [] Flu Shot (Jan-May): [] Tdap (27-36wks): [] COVID Vaccine: [] Rhogam at 28 wks (if Rh neg): 3rd Tri Labs: [] CBC/HIV/RPR/T&S: [] GBS: [] GC/CT (if indicated): [] testing: Counseling [] MOD: [] Place of delivery: [] Last clinic visit SVE: [] IOL start agent: [] Epidural: [] Consents signed: [] MOC: [] Method of feeding: [] Edge Burnisher Uppers: [] PP Depression Discussed: Assessment & Plan (09/05/2022 6:11 PM CDT): Reminded that she needs labs for Hep B and Hep C. Plans to get next week. [x] Co-management vs. [] Full M Care; [] Red Team [x] Blue Team Referring Provider: Jennifer Haynes (Endo) [phone] OB: [facility] [place]: [phone] [] or Medicare Insurance [x] Dating Criteria: EWA 03/08/23 based on 6w US (Media tab) [x] Labs: Rh [O positive], Ab [negative], Rubella [immune], HIV [NR], HepBSAg [not done], RPR [NR ], Hep C [not done], Varicella [non-reactive], GC/CT/Trich [all negative] [x] Genetic Screening: NIPT positive of Monosomy X [x] CBC/Hgb 10.1/31.4/499K [x] Early 1hr GTT (if indicated): NA, T1DM, A1C: 9.8 [x] UCx: no growth [x] Pap: not indicated based on age [x] LD ASA (if indicated) starting at 12 weeks: recommended, taking [] EPDS [ ]; PNBHS referral (if indicated) 2nd Tri Labs: [] Anatomy ultrasound: scheduled for 10/06/2022 [] CBC/Ferritin/1hr gtt at 24-28wks: [] Flu Shot (Jan-May): [] Tdap (27-36wks): [] COVID Vaccine: [] Rhogam at 28 wks (if Rh neg): 3rd Tri Labs: [] CBC/HIV/RPR/T&S: [] GBS: [] GC/CT (if indicated): [] testing: Counseling [] MOD: [] Place of delivery: [] Last clinic visit SVE: [] IOL start agent: [] Epidural: [] Consents signed: [] MOC: [] Method of feeding: [] Edge Burnisher Uppers: [] PP Depression Discussed: Diabetic ketoacidosis in pediatric patient 04/22/2022 10/03/2022 Assessment & Plan (04/27/2022 8:14 PM COMMUNITY PROGRAM ASSISTANT): Shama Godfrey is a 16 y/o F with a hx of DMI who presented to [facility] ED with DKA. She began feeling ill Tod evening with sx of CARRANZA, N/V, abdominal pain, polyuria and polydipsia. She has been compliant with her insulin regiment until recently when she started having trouble obtaining her medication d/t insurance issues. She contacted endocrine the day prior to admission for assistance with sick day dosing but sx persisted so she presented to the [facility] ED. In the ED she was ill appearing with diffuse abdominal pain. HR 120, RR34 (w/o kussmal), BG in the 500s and Ketones 5.6. VBG 7.21/34/43/14, HCO3 11, AG 25 (corrected for glucose). Hgb A1c 10.5. HCG negative, RVP negative, WBC 11.4. Was having 4 hour stretches of hypoglycemia overnight for multiple nights in a row despite decreases in her insulin regimen. She was provided with a sitter two nights ago and insulin was removed from her room. No hypoglycemia overnight. However, she had a sitter the following night and again had hypoglycemia. Insulin regimen changed today. Will continue to monitor with sitter. Requires stabilization of BGs before she can safely discharge home. Plan: - Endocrinology following, appreciate recs - POCT Glucose 5x daily - qvoid urine ketones for BG > 300 - Lantus 12 units - Humalog ICR 40, ISF 65, Target glucose 150 Assessment & Plan (04/26/2022 2:37 PM COMMUNITY PROGRAM ASSISTANT): Shama Godfrey is a 16 y/o F with a hx of DMI who presented to [facility] ED with DKA. She began feeling ill Thursday evening with sx of CARRANZA, N/V, abdominal pain, polyuria and polydipsia. She has been compliant with her insulin regiment until recently when she started having trouble obtaining her medication d/t insurance issues. She contacted endocrine yesterday for assistance with sick day dosing but sx persisted so she presented to the [facility] ED. In the ED she was ill appearing with diffuse abdominal pain. HR 120, RR34 (w/o kussmal), BG in the 500s and Ketones 5.6. VBG 7.21/34/43/14, HCO3 11, AG 25 (corrected for glucose). Hgb A1c 10.5. HCG negative, RVP negative, WBC 11.4. Was having 4 hours stretches of hypoglycemia overnight for multiple nights in a row despite decreases in her insulin regimen. She was provided with a sitter last night and insulin was removed from her room. No hypoglycemia overnight. Plan to restart carb correction today. Will monitor for next 24 hours with sitter. Plan for discharge home tomorrow with close endo follow up if no other episodes of hypoglycemia. Plan: - Endocrinology following, appreciate recs - POCT Glucose 5x daily - qvoid urine ketones for BG > 300 - Lantus 15 units - Humalog ICR 25 , ISF 65, Target glucose 120 Assessment & Plan (04/25/2022 2:33 PM COMMUNITY PROGRAM ASSISTANT): Shama Godfrey is a 16 y/o F with a hx of DMI who presented to [facility] ED with DKA. She began feeling ill Thursday evening with sx of CARRANZA, N/V, abdominal pain, polyuria and polydipsia. She has been compliant with her insulin regiment until recently when she started having trouble obtaining her medication d/t insurance issues. She contacted endocrine yesterday for assistance with sick day dosing but sx persisted so she presented to the [facility] ED. In the ED she was ill appearing with diffuse abdominal pain. HR 120, RR34 (w/o kussmal), BG in the 500s and Ketones 5.6. VBG 7.21/34/43/14, HCO3 11, AG 25 (corrected for glucose). Hgb A1c 10.5. HCG negative, RVP negative, WBC 11.4. She continues to experience hypoglycemia overnight with acute rises in the morning. She had small ketones in her urine this morning. The most likely cause of her hypoglycemia is due to her not taking her insulin prior to admission resulting in too high of a dose while admitted.. Consider exogenous dosing as another explanation for hypoglycemia though patient and boyfriend deny taking extra insulin. Additional causes of hypoglycemia assessed with labs and unremarkable. This morning she complains of cramping in her legs. Slight hypocalcemia on last lab draw. Will encourage getting up and around today and repeat RFP. Plan: - Endocrinology following, appreciate recs - POCT Glucose 5x daily - qvoid urine ketones until clear/trace x 2 - Lantus 15 units - Humalog ICR 15 , ISF 65, Target glucose 120 - RFP Assessment & Plan (04/25/2022 10:27 AM COMMUNITY PROGRAM ASSISTANT): Shama is a 16-year-old with T1DM admitted in DKA of unclear etiology (illness vs inadequate insulin administration). Currently without insurance coverage with recent difficulties obtaining insulin, although currently has supplies at home. Multiple lows since discontinuation of insulin infusion. AM cortisol of 18.9 reassuring against adrenal insufficiency contributing to insulin sensitivity, TTG-IgA pending. We have significantly backed off on Shama's insulin dosing with the goal of eliminating low BG. The frequency and degree of Shama's hypoglycemia have likely contributed to hypoglycemia unawareness and exhaustion of counter-regulatory mechanisms to help prevent hypoglycemia, and she is at risk for more frequent and severe lows as a result. Our goal will be for her to avoid lows completely for the next several weeks to allow for this counter-regulatory system to recover and reset. If her BG stabilizes today and she is safe to discharge, will call daily for BG review and continue dosing adjustments as needed. Recommendations: - Lantus 15 units daily - Humalog at mealtimes for carb dosing and hyperglycemia correction. Calculate dose using ICR 15, correction factor (ISF) 65, target 120 - POC urine ketones as needed with vomiting or BG >300 - Follow up TTG-IgA - Upon discharge: call daily for BG review, treat for low if BG < 100, no driving until cleared by endocrine team - Psychology evaluation (inpatient vs outpatient) Please contact the Pediatric Endocrinology team with any questions or concerns. We will continue to follow. Kiah Leigh MD Clinical Endocrinology and Diabetes Fellow Assessment & Plan (04/24/2022 12:54 PM COMMUNITY PROGRAM ASSISTANT): Shama Godfrey is a 16 y/o F with a hx of DMI who presented to [facility] ED with DKA. She began feeling ill Thursday evening with sx of CARRANZA, N/V, abdominal pain, polyuria and polydipsia. She has been compliant with her insulin regiment until recently when she started having trouble obtaining her medication d/t insurance issues. She contacted endocrine yesterday for assistance with sick day dosing but sx persisted so she presented to the [facility] ED. In the ED she was ill appearing with diffuse abdominal pain. HR 120, RR34 (w/o kussmal), BG in the 500s and Ketones 5.6. VBG 7.21/34/43/14, HCO3 11, AG 25 (corrected for glucose). Hgb A1c 10.5. HCG negative, RVP negative, WBC 11.4. She has cleared her ketones but given hypoglycemia overnight, she will remain admitted to monitor sugars. The most likely cause of her hypoglycemia is due to her not taking her insulin prior to admission resulting in too high of a dose while admitted. Less likely cause is she received an extra lantus dose in the ED though documentation does not support this. Consider exogenous dosing as another explanation for hypoglycemia though patient and boyfriend deny taking extra insulin. Plan to repeat diabetes workup and am cortisol to rule out other causes of hypoglycemia last night. Plan: - Endocrinology following, appreciate recs - POCT Glucose 5x daily - Urine Ketones if glucose > 300 - Lantus 20 units - Humalog ICR 8 , ISF 50, Target glucose 120 - Diabetes labs - Cortisol in am Assessment & Plan (04/24/2022 10:04 AM COMMUNITY PROGRAM ASSISTANT): Shama is a 16-year-old with T1DM admitted in DKA of unclear etiology (illness vs inadequate insulin administration). She is feeling better since resolution of her acidosis. Currently without insurance coverage with recent difficulties obtaining insulin, although currently has supplies at home. Multiple lows since discontinuation of insulin infusion. DDx for hypoglycemia includes excess insulin administration (no known history), need for insulin dose adjustment, and less likely development of adrenal insufficiency or Celiac disease. Today, we will adjust Shama's insulin doses as outlined below, and screen for adrenal insufficiency and Celiac disease with AM labs. Discharge pending resolution of hypoglycemia. Recommendations: - Lantus 20 units qHS - Humalog at mealtimes for carb dosing and hyperglycemia correction. Calculate dose using ICR 8, correction factor (ISF) 50, target 120 - POC urine ketones as needed with vomiting or BG >300 - AM labs (please obtain fasting if possible between 7am and 8am): cortisol, TTG-IgA Please contact the Pediatric Endocrinology team with any questions or concerns. We will continue to follow. Kiah Leigh MD Clinical Endocrinology and Diabetes Fellow Assessment & Plan (04/23/2022 12:34 PM COMMUNITY PROGRAM ASSISTANT): Shama is a 16-year-old with T1DM admitted in DKA of unclear etiology (illness vs inadequate insulin administration). She is feeling better since resolution of her acidosis but continues to report headache and muscle aches this morning. Currently without insurance coverage with recent difficulties obtaining insulin, although currently has supplies at home. Low this AM after being dosed for carbohydrates and reports lows at home following hyperglycemia correction. Will adjust ICR and correction factor this morning. Recommendations: - Lantus 22 units qHS - Humalog at mealtimes for carb dosing and hyperglycemia correction. Calculate dose using ICR 6, correction factor (ISF) 45, target 120 - Continue hyperhydration and ketone checks qvoid until ketones trace or negative x2, then obtain POC urine ketones as needed with vomiting or BG >300 - Inpatient diabetes educators to meet with Shama to review sick day dosing plan - regarding insurance coverage and additional assistance Please contact the Pediatric Endocrinology team with any questions or concerns. We will continue to follow. Kiah Leigh MD Clinical Endocrinology and Diabetes Fellow Assessment & Plan (04/23/2022 5:53 AM COMMUNITY PROGRAM ASSISTANT): Shama Godfrey is a 16 y/o F with a hx of DMI who presented to [facility] ED with DKA. She began feeling ill Thursday evening with sx of CARRANZA, N/V, abdominal pain, polyuria and polydipsia. She has been compliant with her insulin regiment until recently when she started having trouble obtaining her medication d/t insurance issues. She contacted endocrine yesterday for assistance with sick day dosing but sx persisted so she presented to the [facility] ED. In the ED she was ill appearing with diffuse abdominal pain. HR 120, RR34 (w/o kussmal), BG in the 500s and Ketones 5.6. VBG 7.21/34/43/14, HCO3 11, AG 25 (corrected for glucose). Hgb A1c 10.5. HCG negative, RVP negative, WBC 11.4. She received Zofran x3, was started on insuline drip and placed on the 2 bag system. Plan: - Consult pediatric endocrinology - Continue Insulin gtt at 0.1 units/kg/hr - Continue rehydration with two bag system consisting of 0.45% NS + 20 KPhos + 20 KAcetate and D10 0.45% NS + 20 KPhos + 20 KAcetate - NPO with strict I/Os and daily weights - POCT Glucose q1h Vitals with BP q1h Neurochecks q1h - BMP q4h - Urine Ketones qVOID - Initiate Diabetes Education once DKA resolved - Lantus 20 units -> 22 units QD since 04/14 - Home Humalog ICR 8->5 (changed since 04/14) , ISF 40, Target glucose 120 - follow up UA 3+ glucose, 4+ ketones, non infectious Hypoglycemia 05/02/2021 10/03/2022 Assessment & Plan (05/02/2021 1:50 AM COMMUNITY PROGRAM ASSISTANT): Patient is a 15 year old female with a PMH of T1DM presenting with hypoglycemia. According to Mom and patient, she has been having frequent episodes of hypoglycemia throughout the past month, and it has worsened over the past 2 weeks. The patient has not been able to attend school due to frequent hypoglycemic episodes. They have been working with endocrinology and adjusting medications accordingly. Before her hypoglycemic episodes today, the last changes were made about two weeks ago where her long acting basal insulin was decreased from 24 to 20. OSH work up showed C- peptide of <0.2, insulin level of 6.5, and HgbA1C of 8.2. While being at [facility] her blood glucose levels have been stable and urine has been negative for ketones. It could be that the patient is presenting with hypoglycemic episodes due to her needing changes in her medications - as such the outpatient endocrinology team has been trying to make adjustments. Another possibility is that the patient has been intentionally taking too much insulin - although her mother denies this the patient presents with recurrent hypoglycemia episodes even after correction with juice/glucagon and stated additional insulin doses. Also on the differential is insulinoma although this is less likely since it would be expected the c-peptide would be elevated. Disorders of gluconeogenesis can also lead to hypoglycemia (I.e. glycogen storage disease, galactosemia, etc.) can also lead to hypoglycemia although it seems less likely that the patient would be presenting with one of these diseases at such a late age. Primary adrenal insufficiency is also on the differential for hypoglycemia. While patient usually present with a number of different symptoms such as hypotension, hyperpigmentation, and lab abnormalities such as hyponatremia and hyperkalemia - children and patients with T1DM can present with hypoglycemia. In those with T1DM and primary adrenal insufficiency, there is also an increase in sensitivity to exogenous insulin. - Lantus 15U - Humalog ICR 15, ISF 20, Target 150 - BG 5x daily - Consider obtaining cortisol/ACTH Diabetic ketoacidosis associ ated with type 1 diabetes mellitus 03/10/2019 10/03/2022 Assessment & Plan (03/12/2019 6:39 AM CDT): Shama is a 13 year old female with T1DM who presented after 2 days of elevated BGs, decreased energy, and 1x emesis. The patient's insulin GTT was discontinued on --- as she clsoed her gap. She remains on hyperhydration for ketones in the urine. - 3L/m2/day 1/2 NS + KPhosp + Kacetate - home Lantus 24 units @ 11am - Humalog: Target 120, ISF 50, and ICR 10 - Diabetic diet - BG 5x a day - Ketones qVoid until trace or negative x 2 Assessment & Plan (03/11/2019 6:12 PM CDT): Shama is a 13 year old female with T1DM who presented after 2 days of elevated BGs, decreased energy, and 1x emesis. She was initially evaluated in the ED and labs of pH 7.2, CO2 9, AG 34 and urine with 4+ ketones were consistent with DKA. She received 18 units of her home fast acting insulin in the ED given some difficulty in placing the IV, received 1L NS bolus, and was subsequently started on the 2 bag protocol with the insulin drip. She was admitted for management of diabetic ketoacidosis. - Continue IV fluids @ 3L/m2/day with 1/2 NS + KPhosp + Kacetate until ketones cleared or negative x 2 - Resume home Lantus 24 units @ 11am per home regimen - Humalog: Target 120, ISF 50, and ICR 10 - Diabetic diet - BG 5x a day - psychology consult - Ketones qVoid until trace or negative x 2 - neuro checks q1h Assessment & Plan (03/10/2019 9:03 PM CDT): Shama is a 13 year old female with T1DM who presented after 2 days of elevated BGs, decreased energy, and 1x emesis. She was initially evaluated in the ED and labs of pH 7.2, CO2 9, AG 34 and urine with 4+ ketones were consistent with DKA. She received 18 units of her home fast acting insulin in the ED given some difficulty in placing the IV, received 1L NS bolus, and was subsequently started on the 2 bag protocol with the insulin drip. She was admitted for management of diabetic ketoacidosis. - Continue Insulin drip, 0.1 units/kg/hr; if glucose < 150 - 2 bag method (3L/m2) with D12.5% 1/2 NS + KPhosp + Kacetate - NPO while on insulin drip - BMP q4h; BG q1h, Ketones qVoid while on insulin drip - neuro checks q1h Type 1 diabetes mellitus wit hout complication ([facility]) 05/04/2018 10/03/2022 Assessment & Plan (04/28/2022 10:08 AM COMMUNITY PROGRAM ASSISTANT): Shama is a 16-year-old with T1DM admitted in DKA of unclear etiology (illness vs inadequate insulin administration). Currently without insurance coverage with recent difficulties obtaining insulin, although currently has supplies at home. She had multiple lows since discontinuation of insulin infusion. Her episodes of hypoglycemia were after taking a hot shower while sitter in room. Her home insulin was taken from her room recently and she had no any low levels since the day before. She had high glucose levels through the day yesterday. We planned to increase her lantus to avoid morning hyperglycemia and planned to strengthen ICR to avoid postprandial hyperglycemia Recommendations: - Lantus 13 units daily - Humalog at mealtimes for carb dosing and hyperglycemia correction. Calculate dose using ICR 30, correction factor (ISF) 65, target 150 - POC urine ketones as needed with vomiting or BG >300 - Upon discharge: call daily for BG review, treat for low if BG < 100, no driving until cleared by endocrine team - Psychology evaluation today Assessment & Plan (04/27/2022 10:32 AM COMMUNITY PROGRAM ASSISTANT): Shama is a 16-year-old with T1DM admitted in DKA of unclear etiology (illness vs inadequate insulin administration). Currently without insurance coverage with recent difficulties obtaining insulin, although currently has supplies at home. Multiple lows since discontinuation of insulin infusion. AM cortisol of 18.9 reassuring against adrenal insufficiency contributing to insulin sensitivity, TTG-IgA normal. Over the lat 24 hrs, she had an episodes of hypoglycemia overnight after taking a hot shower while sitter in room. Shama reports episodes of hypoglycemia after hot showers since diagnosis. Low BG would be in the 40-50's after taking a shower. Recommendations: - Lantus 12 units daily - Humalog at mealtimes for carb dosing and hyperglycemia correction. Calculate dose using ICR 40, correction factor (ISF) 65, target 150 - POC urine ketones as needed with vomiting or BG >300 - Upon discharge: call daily for BG review, treat for low if BG < 100, no driving until cleared by endocrine team - Psychology evaluation on 04/28 - Shama instructed to take hot showed 1 hr before meal and to not dose insulin during that timeframe. Please contact the Pediatric Endocrinology team with any questions or concerns. We will continue to follow. Assessment & Plan (04/26/2022 11:22 AM COMMUNITY PROGRAM ASSISTANT): Shama is a 16-year-old with T1DM admitted in DKA of unclear etiology (illness vs inadequate insulin administration). Currently without insurance coverage with recent difficulties obtaining insulin, although currently has supplies at home. Multiple lows since discontinuation of insulin infusion. AM cortisol of 18.9 reassuring against adrenal insufficiency contributing to insulin sensitivity, TTG-IgA normal. Currently admitted due to persistent hypoglycemia. The frequency and degree of Shama's hypoglycemia have likely contributed to hypoglycemia unawareness and exhaustion of counter-regulatory mechanisms to help prevent hypoglycemia, and she is at risk for more frequent and severe lows as a result. Our goal will be for her to avoid lows completely for the next several weeks to allow for this counter- regulatory system to recover and reset. If her BG stabilizes today and she is safe to discharge, will call daily for BG review and continue dosing adjustments as needed. Over the lat 24 hrs, she had a few episodes of hypoglycemia in the evening a sitter was provided and her insulin supplies were removed from her room. Her BG have been elevated. Today, will restart a weak ICR and observe for 24 hrs. If no hypoglycemia noted for 24 hrs, will discharge with close outpatient follow up. Recommendations: - Lantus 15 units daily - Humalog at mealtimes for carb dosing and hyperglycemia correction. Calculate dose using ICR 15, correction factor (ISF) 65, target 120 - POC urine ketones as needed with vomiting or BG >300 - Upon discharge: call daily for BG review, treat for low if BG < 100, no driving until cleared by endocrine team - Psychology evaluation (inpatient vs outpatient) Please contact the Pediatric Endocrinology team with any questions or concerns. We will continue to follow. Encounters Date Type Department Care Team Description 02/01/[address] [facility] Medicine Endocrinology Metabolism and Lipid [address] [place] [address] [place] [address] Debbie Chaney, RN Glucose readings 01/30/2025 Telephone [facility] Endocrinology Metabolism and Lipid [address] [place] [phone] Debbie Chaney, RN Follow-up 01/24/[address] [facility] Medicine Endocrinology Metabolism and Lipid [address] [facility] [address] [place] [phone] Debbie Chaney, RN 01/24/2025 Telephone [facility] Endocrinology Metabolism and Lipid [address] [facility] [address] [place] [address] Debbie Chaney, RN Sick Day 11/25/2024 7:41 PM CDT - 11/26/2024 3:23 PM CDT Hospital Encounter [facility] Acute Medicine [address] [place] [id number] Shamar Recinos MD Wala, MD Laura Wu Kiet T., MD Fasick, Victoria Rose, Conversion reaction (Primary Dx); Non-intractable psychomotor epilepsy (HCC); Type 1 diabetes mellitus with ketoacidosis without coma (HCC); Type 1 diabetes mellitus without complication (HCC); Type 1 diabetes mellitus with diabetic polyneuropathy (HCC) Discharge Disposition: Discharge to home or self care 11/25/2024 7:19 PM CDT - 11/25/2024 11:59 PM CDT Hospital Encounter [facility] Emergency, Room R Discharge Disposition: Discharge to home or self care 11/03/[address] [facility] Medicine Endocrinology Metabolism and Lipid [address] [facility] [address] 5th [place] [address] [place] [address] Nicki Cary RMA Prior Auth (KOKI FRANCO G6 SENSORS PLEASE) from Last 3 Months Immunizations Immunization Administration Dates Next Due DTP 2004 DTaP 06/07/2008, 6,2004,07/11 HPV9 01/05/2017 Hep B, Adolescent or Pediatric 02/25/2005,2004,2004 HiB 10/25/2005, 6,2004,09/10,2004 IPV 06/07/2008, 6,2004,07/11 Influenza, Quadrivalent, Spl it, Preservative Free, Intramuscular 06/11/2022 Influenza, Unspecified 04/09/2010 MMR 01/23/2023(Deferred: No longer needed),06/07/2008,10/25/2005,10/24/19 06 Meningococcal MCV4P (Menactra) 01/01/2016 Pneumococcal Conjugate 7-Valent 10/26/19 06,10/23/2005,2004,09/10,2004 Tdap 12/22/2022,01/01/2016 Varicella 01/23/2023,01/01/2016,12/09/2005 Surgical History Surgery Date Site/Laterality Comments APPENDECTOMY Medical History Medical History Date Comments Diabetes mellitus (HCC) Diabetes mellitus type I (HCC) Adhd Family History Medical History Relation Name Comments No Known Problems Father No Known Problems Mother Diabetes type II Other maternal un eligio Relation Name Status Comments Father Mother Other Social History Tobacco Use Types Packs/Day Years Used Date Smoking Tobacco: Never Smokeless Tobacco: Never Tobacco Cessation:Counseling Given: Not Answered Alcohol Use Standard Drinks/Week Comments Never 0 [...] week 03/18/2023 How often do you attend [facility] or gnosticist services? Never 03/18/2023 Do you belong to [...] place to sleep or slept in a senior living (including now)? No 03/18/2023 [place] Depression Scale Answer Date Recorded [place] Depression Scale Total 10 02/24/2023 The thought [...] on file Legal Sex Female 9:11 AM COMMUNITY PROGRAM ASSISTANT Gender Identity Female 09/18/2023 8:24 AM CDT Sexual Orientation Not on file Obstetrics History Para Term AB IAB SAB Ectopic Multiple Livin g Live Births 1 1 0 1 0 1 1 Date Outcome GA Total Labor Labor/2nd/3rd Weight Sex Type Anes PTL Fay A1 A5 Name Clin 2022 32w 4d 0h 03m 0h 03m 2.13 kg (4 lb 11.1 oz) F Vagina l Epidur al Y Livin g 0 2 HERLI NG,GI RLGRA CI Huysm an, Eric et CMD Frank[place] Complications:Rupture of Mem branes > 18 hours,Pre eclampsia,Premature Rupture of Membranes Delivery Location:[facility] Main C ampus ([facility]) Last Filed Vital Signs Vital Sign Reading Time Taken Comments Blood Pressure 118/80 11/26/2024 9:53 AM CDT Pulse 91 11/26/2024 9:53 AM CDT Temperature 36.6 C (97.8 F) 11/26/2024 9:53 AM CDT Respiratory Rate 16 11/26/2024 9:53 AM CDT Oxygen Saturation 99% 11/26/2024 9:53 AM CDT Inhaled Oxygen Concentration - - Weight 61.3 kg (135 lb 2.3 oz) 11/26/2024 8:08 A M CDT Height 154.9 cm (5' 1) 11/26/2024 8:08 AM CDT Body Mass Index 25.53 11/26/2024 8:08 AM CDT Plan of Treatment Health Maintenance Due Date Last Done Comments Foot Exam 2004 Pneumococcal vaccine <65 (1 of 1 - PPSV23, PCV20, or PCV21) 2010 10/25/2005, 10/23/2005, 2004, Additional history exists Dilated Eye Exam 2014 HPV Vaccines (2 - 2-dose series) 07/08/2017 01/05/2017 Meningococcal B Vaccine (1 of 2 - Standard) 2020 Regular Well Visit/Exam 18-64 2022 Chlamydia and Gonorrhea (GC/CT) Screening 01/01/2024 12/31/2022, 08/18/2022 Depression Screening 03/14/2024 03/14/2023, 02/24/2023, 02/18/2023 Albumin Creatinine Ratio, Urine 01/25/2025 01/26/2024, 04/30/2023, 04/14/2022, Additional history exists Lipid Panel 01/25/2025 01/26/2024, 04/01, 04/14/2022, Additional history exists TSH Level 01/25/2025 01/26/2024, 10/30, 11/16/2023, Additional history exists Influenza Vaccine (#1) 2025 06/11/2022, 2009 Hemoglobin A1C 05/28/2025 11/26/2024, 07/03, 01/26/2024, Additional history exists eGFR 11/26/2025 11/26/2024, 10/31, 11/26/2024, Additional history exists DTaP/Tdap/Td Vaccine (8 - Td or Tdap) 12/22/2032 12/22/2022, 01/01/2016, 06/07/2008, Additional history exists Hepatitis B Screening Completed 02/25/2005 , 2004, 2004 Meningococcal Vaccine Aged Out 01/01/2016 No sherry ernesto eligible based on patient's age to complete this topic Varicella Vaccines Completed 01/23/2023, 0 01/01/2016, 12/09/2005 Hepatitis C Screening Completed 03/18/2023 Goals Goal Patient Goal Type Associated Problems Recent Progress Patient-Stated? Author Hemoglobin A1c < 7.5 Result Component 9.9(11/26/2024 9:35 AM CDT) No Jennifer Mosher MD Procedures Procedure Name Priority Date/Time Associated Diagnosis Comments POCT GLUCOSE DEVICE Routine 11/26/2024 2 :59 PM CDT POCT GLUCOSE DEVICE Routine 11/26/2024 1 2:02 PM CDT POCT GLUCOSE DEVICE Routine 11/26/2024 9 :59 AM CDT EGFR Timed 11/26/2024 9:35 AM CDT DIFFERENTIAL AUTO Timed 11/26/2024 9:3 5 AM CDT COMPREHENSIVE METABOLIC PANEL Timed 11/26/2024 9:35 AM CDT CBC WITH AUTO DIFFERENTIAL Timed 11/26/2024 9:35 AM CDT PHOSPHORUS Timed 11/26/2024 9:35 AM CDT MAGNESIUM Timed 11/26/2024 9:35 AM CDT HEMOGLOBIN A1C Add-On 11/26/2024 9:35 AM CDT POCT GLUCOSE DEVICE Routine 11/26/2024 8 :11 AM CDT POCT GLUCOSE DEVICE Routine 11/26/2024 5 :30 AM CDT EGFR STAT 11/26/2024 4:33 AM CDT BASIC METABOLIC PANEL STAT 11/26/2024 4:33 AM CDT POCT GLUCOSE DEVICE Routine 11/26/2024 3 :11 AM CDT POCT GLUCOSE DEVICE Routine 11/26/2024 2 :54 AM CDT POCT GLUCOSE DEVICE Routine 11/26/2024 1 :52 AM CDT EGFR Timed 11/26/2024 12:18 AM CDT BASIC METABOLIC PANEL Timed 11/26/2024 12:18 AM CDT SEPSIS LACTATE WITH REFLEX Timed 11/26/2024 12:18 AM CDT POCT GLUCOSE DEVICE Routine 11/25/2024 1 1:11 PM CDT EGFR STAT 11/25/2024 9:40 PM CDT SEPSIS LACTATE WITH REFLEX STAT 11/25/2024 9:40 PM CDT BASIC METABOLIC PANEL STAT 11/25/2024 9:40 PM CDT PHOSPHORUS STAT 11/25/2024 9:40 PM CDT URINALYSIS AND REFLEX TO MICROSCOPIC STAT 11/25/2024 9:28 PM CDT DRUGS OF ABUSE SCREEN, URINE WITHOUT CONFIRMATION STAT 11/25/2024 9:28 PM CDT HCG, BLOOD, QUANTITATIVE STAT 11/25/2024 9:28 PM CDT POCT GLUCOSE DEVICE Routine 11/25/2024 8 :59 PM CDT EGFR STAT 11/25/2024 7:46 PM CDT DIFFERENTIAL AUTO STAT 11/25/2024 7:4 6 PM CDT COMPREHENSIVE METABOLIC PANEL STAT 11/25/2024 7:46 PM CDT CBC WITH AUTO DIFFERENTIAL STAT 11/25/2024 7:46 PM CDT ECG 12-LEAD STAT 11/25/2024 7:44 PM CDT LIPID PANEL Routine 01/26/2024 11:33 AM CDT Type 1 diabetes mellitus without complication (HCC) ALBUMIN CREATININE RATIO, URINE Routine 01/26/2024 11:33 AM CDT Type 1 diabetes mellitus without complication (HCC) TSH Routine 01/26/2024 11:33 AM CDT Type 1 diabetes mellitus without complication (HCC) N. GONORRHOEAE/C. TRACHOMATIS AMPLIFICATION Routine 12/31/2022 8:43 PM CDT from Last 3 Months or Most Recently Relevant to Health Maintenance Results * (ABNORMAL) POCT glucose (11/26/2024 2:59 PM CDT) Glucose, POC 358(H) 70 - 199 mg/dL Blood 11/26/2024 2:59 PM CDT 11/26/2024 2:59 PM CDT Jillian Yeung DO LAB POCT ORDERABLES - DE VICE Final Result Performing Organization Address [facility] Co de Phone Number QUANG [facility] ([place]) 1 [facility] [place] [address] * POCT glucose (11/26/2024 12:02 PM CDT) Glucose, POC 181 70 - 199 mg/dL Blood 11/26/2024 12:0 2 PM CDT 11/26/2024 12:02 PM CDT Jillian Yeung DO LAB POCT ORDERABLES - DE VICE Final Result Performing Organization Address City/[facility] Co de Phone Number QUANG CANNON ([place]) 1 [facility] [employer] [place] [address] * POCT glucose (11/26/2024 9:59 AM CDT) Glucose, POC 167 70 - 199 mg/dL Blood 11/26/2024 9:59 AM CDT 11/26/2024 9:59 AM CDT Jillian Yeung DO LAB POCT ORDERABLES - DE VICE Final Result Performing Organization Address City/[facility]/ZIP Co de Phone Number QUANG CANNON ([place]) 1 [facility] [place] [address] * eGFR (11/26/2024 9:35 AM CDT) eGFR >90 >=60 mL/min/1. 73 m2 Comment: Interpretive Data Reference Interval Normal >/= 90 mL/min/1.73m2 Mildly decreased* 60 - 89 mL/min/1.73m2 Mildly to moderately decreased 45 - 59 mL/min/1.73m2 Moderately to severely decreased 30 - 44 mL/min/1.73m2 Severely decreased 15 - 29 mL/min/1.73m2 Kidney Failure < 15 mL/min/1.73m2 *Relative to young adult level Estimated glomerular filtration rate is determined by the 2020 CKD-EPI equation recommended by the National Kidney Foundation (A Unifying Approach to GFR Estimation: Recommendations of the NKF-ASK Task Force on Reassessing the Inclusion of Race in Diagnosing Kidney Disease, JASN 2020). The CKD-EPI equation should not be used for patients with unstable renal function and has not been validated in children and those over 70. Current interpretive data was last reviewed 2021. Blood 11/26/2024 9:35 AM CDT 11/26/2024 9:39 AM CDT us Jillian Yeung DO LAB BLOOD ORDERABLES Fin al Result QUANG [place]) 1 [facility] [place] [address] * Differential, auto (11/26/2024 9:35 AM CDT) Neutrophil abs 2.20 1.50 - 6.50 K/cumm Imm gran abs 0.01 0.00 - 0.10 K/cumm [facility] ([place]) Lymphocyte abs 2.85 0.80 - 3.30 K/cumm [facility] ([place]) Monocyte abs 0.48 0.20 - 0.80 K/cumm [facility] ([place]) Eosinophil abs 0.15 0.00 - 0.50 K/cumm [facility] ([place]) Basophil abs 0.03 0.00 - 0.10 K/cumm [facility] ([place]) Neutrophil pct 38.5 % [facility] ([place]) Comment: Interpretive Data Percent cell count reference ranges are not reported, since discordance with absolute values may lead to misinterpretation of CBC data. Current Interpretive Data was last revised on 2017. Imm gran pct 0.2 % [facility] ([place]) Comment: Interpretive Data Percent cell count reference ranges are not reported, since discordance with absolute values may lead to misinterpretation of CBC data. Current Interpretive Data was last revised on 2017. Lymphocyte pct 49.8 % [facility] ([place]) Comment: Interpretive Data Percent cell count reference ranges are not reported, since discordance with absolute values may lead to misinterpretation of CBC data. Current Interpretive Data was last revised on 2017. Monocyte pct 8.4 % [facility] ([place]) Comment: Interpretive Data Percent cell count reference ranges are not reported, since discordance with absolute values may lead to misinterpretation of CBC data. Current Interpretive Data was last revised on 2017. Eosinophil pct 2.6 % [facility] ([place]) Comment: Interpretive Data Percent cell count reference ranges are not reported, since discordance with absolute values may lead to misinterpretation of CBC data. Current Interpretive Data was last revised on 2017. Basophil pct 0.5 % [facility] ([place]) Comment: Interpretive Data Percent cell count reference ranges are not reported, since discordance with absolute values may lead to misinterpretation of CBC data. Current Interpretive Data was last revised on 2017. Blood 11/26/2024 9:35 AM CDT 11/26/2024 9:39 AM CDT us Jillian Yeung DO LAB BLOOD ORDERABLES Fin al Result [facility]ANG [facility] ([place]) 1 [facility] [place] [address] * (ABNORMAL) CBC with auto differential (11/26/2024 9:35 AM CDT) WBC 5.72 3.80 - 9.90 K/cumm Hgb 11.3(L) 11.9 - 15.5 g/dL [facility] ([place]) Hct 34.5(L) 35.6 - 45.5 % [facility] ([place]) Plt 253 150 - 400 K/cumm [facility] ([place]) MPV 9.7 9.1 - 12.3 fL [facility] ([place]) RBC 3.72(L) 3.90 - 5.20 M/cumm [facility] ([place]) MCV 92.7 81.3 - 96.4 fL [facility] ([place]) MCH 30.4 27.1 - 33.3 pg [facility] ([place]) MCHC 32.8 32.3 - 35.7 g/dL [facility] ([place]) RDW CV 12.5 11.1 - 14.9 % [facility] ([place]) RDW SD 43.1 35.7 - 48.1 fL [facility] ([place]) NRBC abs 0.00 0.00 - 0.01 K/cumm [facility] ([place]) Blood 11/26/2024 9:35 AM CDT 11/26/2024 9:39 AM CDT Jillian Yeung DO LAB BLOOD ORDERABLES Fin al Result Performing Organization Address City/[facility] Co de Phone Number [facility] ([place]) 1 [facility] [employer] [place] [id number] * Phosphorus (11/26/2024 9:35 AM CDT) Phosphorus, pl 3.2 2.3 - 4.5 mg/dL Blood 11/26/2024 9:35 AM CDT 11/26/2024 9:39 AM CDT Jillian Yeung DO LAB BLOOD ORDERABLES Fin al Result Performing Organization Address City/[facility]/ZIP Co de Phone Number [facility] ([place]) 1 [facility] [place] [address] * Magnesium (11/26/2024 9:35 AM CDT) [facility] Magnesium 1.6 1.4 - 2.5 mg/dL Blood 11/26/2024 9:35 AM CDT 11/26/2024 9:39 AM CDT [facility] Ramya Anjana LAB BLOOD ORDERABLES Fin al Result Performing Organization Address [facility] de Phone Number [facility] ([place] 1 [place] [address] * (ABNORMAL) Hemoglobin A1c (11/26/2024 9:35 AM CDT) [facility] Hgb A1C 9.9(H) 4.0 - 5.6 % Estimated Average Glucose 237 mg/dL [facility] ([place]) Comment: The ADA recommends reporting an estimated Average Glucose (eAG) with all Hemoglobin A1c results using the equation derived from a study of 507 normal and diabetic adults. Minority populations were underrepresented and children were not included. (Diabetes Care 31:8056-1616, 2008). The eAG is not equivalent to a fasting glucose. Blood 11/26/2024 9:35 AM CDT 11/26/2024 9:39 AM CDT Jillian Yeung DO LAB BLOOD ORDERABLES Fin al Result Performing Organization Address [facility] de Phone Number [facility] ([place]) 1 [place] [address] * (ABNORMAL) Comprehensive metabolic panel (11/26/2024 9:35 AM CDT) Pathologist [facility] [place] Sodium 137 135 - 145 mmol/L Potassium, pl 3.9 3.3 - 4.9 mmol/L [facility] ([place]) Chloride 103 97 - 110 mmol/L [facility] ([place]) CO2 16(L) 22 - 32 mmol/L [facility] ([place]) Anion gap 18(H) 2 - 15 mmol/L [facility] ([place]) BUN 7 6 - 25 mg/dL [facility] ([place]) Creatinine 0.73 0.60 - 1.10 mg/dL [facility] ([place]) Glucose 154 70 - 199 mg/dL [facility] ([place]) Comment: Interpretive Data Fasting glucose >/= 126 mg/dl is diagnostic for diabetes. Fasting is defined as no caloric intake for at least 8 hours. Fasting glucose between 100 mg/dl to 125 mg/dl is diagnostic of prediabetes. In a patient with classic symptoms of hyperglycemia or hyperglycemic crisis, a random glucose >/= 200 mg/dl is diagnostic for diabetes. In the absence of unequivocal hyperglycemia, results should be confirmed by repeat testing. The classification and Diagnosis of Diabetes Diabetes Care 2021; 46: S19-S40. Current interpretive data was last revised 2022. Calcium 8.2(L) 8.5 - 10.3 mg/dL [facility] ([place]) Bilirubin, total 0.4 0.1 - 1.2 mg/dL [facility] ([place]) Protein, pl 6.2(L) 6.5 - 8.5 g/dL [facility] ([place]) Albumin 3.6 3.5 - 5.0 g/dL [facility] ([place]) Alk phos 76 40 - 130 Units/L [facility] ([place]) ALT 7 7 - 45 Units/L [facility] ([place]) AST 13 10 - 45 Units/L [facility] ([place]) Comment: Hemolysis present. Results may be affected. Slightly Hemolyzed Specimen Blood 11/26/2024 9:35 AM CDT 11/26/2024 9:39 AM CDT us Jillian Yeung DO LAB BLOOD ORDERABLES Fin al Result [facility] ([place]) 1 [facility] Department of Laboratories [place], [place] [id number] * POCT glucose (11/26/2024 8:11 AM CDT) Glucose, POC 119 70 - 199 mg/dL Blood 11/26/2024 8:11 AM CDT 11/26/2024 8:11 AM CDT Jillian Yeung DO LAB POCT ORDERABLES - DE VICE Final Result [facility] ([place]) 1 [facility] Department [place] [address] * POCT glucose (11/26/2024 5:30 AM CDT) Glucose, POC 93 70 - 199 mg/dL Blood 11/26/2024 5:30 AM CDT 11/26/2024 5:30 AM CDT Shamar Recinos MD LAB POCT ORDERABLES - DEVIC E Final Result Performing Organization Address City/[facility]/[place] Co de Phone Number [facility] ([place]) 1 [facility] [place] [address] * eGFR (11/26/2024 4:33 AM CDT) eGFR >90 >=60 mL/min/1. 73 m2 Comment: Interpretive Data Reference Interval Normal >/= 90 mL/min/1.73m2 Mildly decreased* 60 - 89 mL/min/1.73m2 Mildly to moderately decreased 45 - 59 mL/min/1.73m2 Moderately to severely decreased 30 - 44 mL/min/1.73m2 Severely decreased 15 - 29 mL/min/1.73m2 Kidney Failure < 15 mL/min/1.73m2 *Relative to young adult level Estimated glomerular filtration rate is determined by the 2020 CKD-EPI equation recommended by the National Kidney Foundation (A Unifying Approach to GFR Estimation: Recommendations of the NKF-ASK Task Force on Reassessing the Inclusion of Race in Diagnosing Kidney Disease, JASN 202). The CKD-EPI equation should not be used for patients with unstable renal function and has not been validated in children and those over 70. Current interpretive data was last reviewed 2021. Blood 11/26/2024 4:33 AM CDT 11/26/2024 4:50 AM CDT us Jonn Arthur MD LAB BLOOD ORDERABLES Final Re sult [facility] ([place]) 1 [facility] [place] [address] * (ABNORMAL) Basic metabolic panel (11/26/2024 4:33 AM CDT) Sodium 140 135 - 145 mmol/L Potassium, pl 3.6 3.3 - 4.9 mmol/L [facility] ([place]) Chloride 108 97 - 110 mmol/L [facility] ([place]) CO2 18(L) 22 - 32 mmol/L [facility] ([place]) Anion gap 14 2 - 15 mmol/L [facility] ([place] BUN 7 6 - 25 mg/dL [facility] ([place] Creatinine 0.73 0.60 - 1.10 mg/dL [facility] ([place]) Glucose 125 70 - 199 mg/dL [facility] ([place]) Comment: Interpretive Data Fasting glucose >/= 126 mg/dl is diagnostic for diabetes. Fasting is defined as no caloric intake for at least 8 hours. Fasting glucose between 100 mg/dl to 125 mg/dl is diagnostic of prediabetes. In a patient with classic symptoms of hyperglycemia or hyperglycemic crisis, a random glucose >/= 200 mg/dl is diagnostic for diabetes. In the absence of unequivocal hyperglycemia, results should be confirmed by repeat testing. The classification and Diagnosis of Diabetes Diabetes Care 202; 46: S19-S40. Current interpretive data was last revised 2022. Calcium 7.8(L) 8.5 - 10.3 mg/dL [facility] ([place]) Blood 11/26/2024 4:33 AM CDT 11/26/2024 4:50 AM CDT us Jonn Arthur MD LAB BLOOD ORDERABLES Final Re sult [facility]) 1 [facility] [employer] [place] [address] * (ABNORMAL) POCT glucose (11/26/2024 3:11 AM CDT) Glucose, POC 287(H) 70 - 199 mg/dL Blood 11/26/2024 3:11 AM CDT 11/26/2024 3:11 AM CDT Shamar Recinos MD LAB POCT ORDERABLES - DEVIC E Final Result Performing Organization Address City/[facility]/ZIP Co de Phone Number [facility] ([place]) 1 [facility] [place] [address] * (ABNORMAL) POCT glucose (11/26/2024 2:54 AM CDT) Glucose, POC 311(H) 70 - 199 mg/dL Blood 11/26/2024 2:54 AM CDT 11/26/2024 2:54 AM CDT Shamar Recinos MD LAB POCT ORDERABLES - DEVIC E Final Result Performing Organization Address [facility]/[place] Co de Phone Number [facility] ([place]) 1 [facility] [place] [address] * (ABNORMAL) POCT glucose (11/26/2024 1:52 AM CDT) Glucose, POC 332(H) 70 - 199 mg/dL Comment:Glu2: RN/MD Notified Blood 11/26/2024 1:52 AM CDT 11/26/2024 1:52 AM CDT Shamar Recinos MD LAB POCT ORDERABLES - DEVIC E Final Result Performing Organization Address City/[facility]/[place] Co de Phone Number [facility] ([place]) 1 [facility] [place] [address] * Sepsis Lactate w/ Reflex (11/26/2024 12:18 AM CDT) Sepsis Lactate 1.1 0.7 - 2.0 mmol/L Blood 11/26/2024 12:1 8 AM CDT 11/26/2024 12:21 AM CDT Shamar Recinos MD LAB BLOOD ORDERABLES Final Result Performing Organization Address City/[facility]/ZIP Co de Phone Number [facility] ([place]) 1 [facility] [place] [address] * eGFR (11/26/2024 12:18 AM CDT) eGFR >90 >=60 mL/min/1. 73 m2 Comment: Interpretive Data Reference Interval Normal >/= 90 mL/min/1.73m2 Mildly decreased* 60 - 89 mL/min/1.73m2 Mildly to moderately decreased 45 - 59 mL/min/1.73m2 Moderately to severely decreased 30 - 44 mL/min/1.73m2 Severely decreased 15 - 29 mL/min/1.73m2 Kidney Failure < 15 mL/min/1.73m2 *Relative to young adult level Estimated glomerular filtration rate is determined by the 2020 CKD-EPI equation recommended by the National Kidney Foundation (A Unifying Approach to GFR Estimation: Recommendations of the NKF-ASK Task Force on Reassessing the Inclusion of Race in Diagnosing Kidney Disease, JASN 2020). The CKD-EPI equation should not be used for patients with unstable renal function and has not been validated in children and those over 70. Current interpretive data was last reviewed 2021. Blood 11/26/2024 12:1 8 AM CDT 11/26/2024 12:21 AM CDT Shamar Recinos MD LAB BLOOD ORDERABLES Final Result [facility] ([place]) 1 [facility] [employer] [place] [address] * (ABNORMAL) Basic metabolic panel (11/26/2024 12:18 AM CDT) Sodium 137 135 - 145 mmol/L Potassium, pl 3.7 3.3 - 4.9 mmol/L [facility] ([place]) Chloride 102 97 - 110 mmol/L [facility] ([place]) CO2 18(L) 22 - 32 mmol/L [facility] ([place]) Anion gap 17(H) 2 - 15 mmol/L [facility] ([place]) BUN 10 6 - 25 mg/dL [facility] ([place]) Creatinine 0.68 0.60 - 1.10 mg/dL [facility] ([place]) Glucose 242(H) 70 - 199 mg/dL [facility] ([place]) Comment: Interpretive Data Fasting glucose >/= 126 mg/dl is diagnostic for diabetes. Fasting is defined as no caloric intake for at least 8 hours. Fasting glucose between 100 mg/dl to 125 mg/dl is diagnostic of prediabetes. In a patient with classic symptoms of hyperglycemia or hyperglycemic crisis, a random glucose >/= 200 mg/dl is diagnostic for diabetes. In the absence of unequivocal hyperglycemia, results should be confirmed by repeat testing. The classification and Diagnosis of Diabetes Diabetes Care 2021; 46: S19-S40. Current interpretive data was last revised 2022. Calcium 8.1(L) 8.5 - 10.3 mg/dL [facility] ([place]) Blood 11/26/2024 12:1 8 AM CDT 11/26/2024 12:21 AM CDT hSamar Recinos MD LAB BLOOD ORDERABLES Final Result Performing Organization Address City/[facility]/ZIP Co de Phone Number [facility] ([place]) 1 [facility] [employer] [place] [address] * POCT glucose (11/25/2024 11:11 PM CDT) [facility] Glucose, POC 167 70 - 199 mg/dL Blood 11/25/2024 11:1 1 PM CDT 11/25/2024 11:11 PM CDT Shamar Recinos MD LAB POCT ORDERABLES - DEVIC E Final Result Performing Organization Address City/[facility]/ZIP Co de Phone Number [facility] ([place] 1 [facility] [employer] [place] [address] * (ABNORMAL) Sepsis Lactate w/ Reflex (11/25/2024 9:40 PM CDT) Sepsis Lactate 4.0(C) 0.7 - 2.0 mmol/L Comment:Critical result call ed to and read back by naomi luu (er) on 11/25/2024 21:53:56 CDT to luke barillas. Blood 11/25/2024 9:40 PM CDT 11/25/2024 9:42 PM CDT Shamar Recinos MD LAB BLOOD ORDERABLES Final Result [facility] ([place]) 1 [facility] Department [place] [address] * eGFR (11/25/2024 9:40 PM CDT) eGFR >90 >=60 mL/min/1. 73 m2 Comment: Interpretive Data Reference Interval Normal >/= 90 mL/min/1.73m2 Mildly decreased* 60 - 89 mL/min/1.73m2 Mildly to moderately decreased 45 - 59 mL/min/1.73m2 Moderately to severely decreased 30 - 44 mL/min/1.73m2 Severely decreased 15 - 29 mL/min/1.73m2 Kidney Failure < 15 mL/min/1.73m2 *Relative to young adult level Estimated glomerular filtration rate is determined by the 2020 CKD-EPI equation recommended by the National Kidney Foundation (A Unifying Approach to GFR Estimation: Recommendations of the NKF-ASK Task Force on Reassessing the Inclusion of Race in Diagnosing Kidney Disease, JASN 2020). The CKD-EPI equation should not be used for patients with unstable renal function and has not been validated in children and those over 70. Current interpretive data was last reviewed 2021. Blood 11/25/2024 9:40 PM CDT 11/25/2024 9:42 PM CDT Shamar Recinos MD LAB BLOOD ORDERABLES Final Result [facility] ([place]) 1 [facility] Department [place] [address] * (ABNORMAL) Phosphorus (11/25/2024 9:40 PM CDT) Pathologist [facility] [place] Phosphorus, pl 1.7(L) 2.3 - 4.5 mg/dL Blood 11/25/2024 9:40 PM CDT 11/25/2024 9:42 PM CDT Shamar Recinos MD LAB BLOOD ORDERABLES Final Result [facility] ([place]) 1 [facility] Department [place] [address] * (ABNORMAL) Basic metabolic panel (11/25/2024 9:40 PM CDT) Pathologist [facility] [place] Sodium 139 135 - 145 mmol/L Potassium, pl 3.5 3.3 - 4.9 mmol/L [facility] ([place]) Chloride 104 97 - 110 mmol/L [facility] ([place]) CO2 17(L) 22 - 32 mmol/L [facility] ([place]) Anion gap 18(H) 2 - 15 mmol/L [facility] ([place]) BUN 11 6 - 25 mg/dL [facility] ([place]) Creatinine 0.81 0.60 - 1.10 mg/dL [facility] ([place]) Glucose 304(H) 70 - 199 mg/dL [facility] ([place]) Comment: Interpretive Data Fasting glucose >/= 126 mg/dl is diagnostic for diabetes. Fasting is defined as no caloric intake for at least 8 hours. Fasting glucose between 100 mg/dl to 125 mg/dl is diagnostic of prediabetes. In a patient with classic symptoms of hyperglycemia or hyperglycemic crisis, a random glucose >/= 200 mg/dl is diagnostic for diabetes. In the absence of unequivocal hyperglycemia, results should be confirmed by repeat testing. The classification and Diagnosis of Diabetes Diabetes Care 202; 46: S19-S40. Current interpretive data was last revised 2022. Calcium 8.4(L) 8.5 - 10.3 mg/dL [facility] ([place]) Blood 11/25/2024 9:40 PM CDT 11/25/2024 9:42 PM CDT us Shamar Recinos MD LAB BLOOD ORDERABLES Final Result [facility] ([place]) 1 [facility] Department [place] [address] * (ABNORMAL) Urinalysis reflex to microscopic (11/25/2024 9:28 PM CDT) Color, ur Straw Yellow Clarity, ur Clear Clear [facility] ([place]) Specific gravity, ur 1.017 1.003 - 1.030 [facility] ([place]) pH, urine 5.5 [facility] ([place]) Comment: Interpretive Data U rine pH is affected by diet, medications, systemic acid-base disturbances, and renal tubular function. pH may affect urinary stone formation. For example, urine pH below 6.0 may help reduce the tendency for calcium phosphate stones and pH greater than 6.0 may reduce the tendency for uric acid stone formation. Source: [facility] [employer] Current Interpretive Data was last revised on 2017 Protein, ur ql Negative Negative [facility] ([place]) Glucose, ur ql 4+(A) Negative [facility] ([place]) Ketones, ur 2+(A) Negative [facility] ([place]) Bilirubin, ur Negative Negative [facility] ([place]) Blood, ur Negative Negative [facility] ([place]) Urobilinogen, ur <2.0 <2.0 mg/dL [facility] ([place]) Nitrite, ur Negative Negative [facility] ([place]) Leukocyte esterase, ur Negative Negative [facility] ([place]) UA reflex comment Reflex conditions for microscopic UA not met. [facility] ([place]) Urine 11/25/2024 9:28 PM CDT 11/25/2024 9:31 PM CDT us Shamar Recinos MD LAB URINE ORDERABLES Final Result [facility] ([place]) [address] Department [place] [address] * (ABNORMAL) Drugs of Abuse Screen, Urine without Confirmation (11/25/2024 9:28 PM CDT) [facility] Amphetamine, ur Not Detected CutOff 500ng/mL Comment: Interpretive Data - Amphetamines: Samples containing greater than 500 ng/mL d-methamphetamine or other cross-reacting amphetamine compounds are reported as positive. Amphetamine immunoassays are subject to significant false positive rates due to cross-reactivity of non-amphetamine drugs. Confirmatory testing required for definitive results. Current Interpretive Data was last reviewed 2022. Barbiturates, ur Not Detected CutOff 200ng/mL [facility] ([place]) Comment: Interpretive Data - Barbiturates: Samples containing greater than 200 ng/mL secobarbital or other cross-reacting barbiturate compounds are reported as positive. False positive and false negative results are possible. Confirmatory testing required for definitive results. Current Interpretive Data was last reviewed 2022. Benzodiazepines, ur Not Detected CutOff 100ng/mL [facility] ([place]) Comment: Interpretive Data - Benzodiazepines: Samples containing greater than 100 ng/mL nordiazepam or other cross-reacting compounds are reported as positive. False positive and false negative results are possible. Confirmatory testing required for definitive results. Current Interpretive Data was last reviewed 2022. Cannabinoids, ur Screen Positive, presumptive (A) CutOff 50 ng/mL [facility] ([place]) Comment: Interpretive Data - Cannabinoids: Samples containing greater than 50 ng/mL delta-9 THC -COOH or other cross- reacting compounds are reported as positive. False positive and false negative results are possible. Confirmatory testing required for definitive results. Current Interpretive Data was last reviewed 2022. Cocaine, ur Not Detected CutOff 150ng/mL [facility] ([place]) Comment: Interpretive Data - Cocaine: Samples containing greater than 150 ng/mL benzoylecgonine or other cross- reacting compounds are reported as positive. False positive and false negative results are possible. Confirmatory testing required for definitive results. Current Interpretive Data was last reviewed 2022. Fentanyl, Ur Not Detected CutOff 5 ng/mL [facility] ([place]) Comment: Interpretive Data - Fentanyl: Samples containing greater than 5 ng/mL norfentanyl, fentanyl, or other cross-reacting fentanyl compounds are reported as positive. False positive and false negative results are possible. Confirmatory testing required for definitive results. Current Interpretive Data was last reviewed 2023. Methadone, ur Not Detected CutOff 300ng/mL [facility] ([place]) Comment: Interpretive Data - Methadone: Samples containing greater than 300 ng/mL d,l-methadone or other cross-reacting compounds are reported as positive. False positive and false negative results are possible. Confirmatory testing required for definitive results. Current Interpretive Data was last reviewed 2022. Opiates, ur Not Detected CutOff 300ng/mL [facility] ([place]) Comment: Interpretive Data - Opiates: Samples containing greater than 300 ng/mL morphine or other cross-reacting compounds are reported as positive. False positive and false negative results are possible. Confirmatory testing required for definitive results. Current Interpretive Data was last reviewed 2022. Oxycodone, ur Not Detected CutOff 100ng/mL [facility] ([place]) Comment: Interpretive Data - Oxycodone: Samples containing greater than 100 ng/mL oxycodone or other cross-reacting compounds are reported as positive. False positive and false negative results are possible. Confirmatory testing required for definitive results. Current Interpretive Data was last reviewed 2022. Phencyclidine, ur Not Detected CutOff 25 ng/mL [facility] ([place]) Comment: Interpretive Data - Phencyclidine: Samples containing greater than 25 ng/mL phencyclidine or other cross-reacting compounds are reported as positive. False positive and false negative results are possible. Confirmatory testing required for definitive results. Current Interpretive Data was last reviewed 2022. Urine Creatinine 15 mg/dL [facility] ([place]) Comment: Interpretive Data Urine Creatinine: < 10 mg/dL is extremely dilute = or > 10 but < 20 mg/dL is dilute = or > 20 mg/dL is normal Current Interpretive Data was last revised on 2017. Urine 11/25/2024 9:28 PM CDT 11/25/2024 9:31 PM CDT Narrative [facility] ([place]) - 11/25/2024 10:18 PM CDT Drug of Abuse screening is performed by immunoassay for medical purposes only. This is not to be used for Pain Management purposes. Shamar Recinos MD LAB URINE ORDERABLES Final Result [facility] ([place]) 1 [facility] [place] [address] * hCG, blood, quantitative (11/25/2024 9:28 PM CDT) [facility] hCG, quant <5.0 0.0 - 5.0 IUnits/L Comment: Interpretive Data Male: < 5 IU/L Non- premenopausal Female: <5 IU/L The [employer] hCG Beta Quant assay procedure was used. Results from different manufacturers or methods may not be comparable. Serial testing should be performed using the same method. Interpretive Data was last revised on 2023 Blood 11/25/2024 9:28 PM CDT 11/25/2024 9:31 PM CDT Shamar Recinos MD LAB BLOOD ORDERABLES Edited Result - Final Performing Organization Address [facility]/[place] Co de Phone Number [facility] ([place]) 1 [facility] [place] [address] * (ABNORMAL) POCT glucose (11/25/2024 8:59 PM CDT) [facility] Glucose, POC 436(H) 70 - 199 mg/dL Comment:Glu2: RN/MD Notified Blood 11/25/2024 8:59 PM CDT 11/25/2024 8:59 PM CDT Shamar Recinos MD LAB POCT ORDERABLES - DEVIC E Final Result [facility] ([place]) 1 [facility] [place] [address] * eGFR (11/25/2024 7:46 PM CDT) eGFR >90 >=60 mL/min/1. 73 m2 Comment: Interpretive Data Reference Interval Normal >/= 90 mL/min/1.73m2 Mildly decreased* 60 - 89 mL/min/1.73m2 Mildly to moderately decreased 45 - 59 mL/min/1.73m2 Moderately to severely decreased 30 - 44 mL/min/1.73m2 Severely decreased 15 - 29 mL/min/1.73m2 Kidney Failure < 15 mL/min/1.73m2 *Relative to young adult level Estimated glomerular filtration rate is determined by the 2020 CKD-EPI equation recommended by the National Kidney Foundation (A Unifying Approach to GFR Estimation: Recommendations of the NKF-ASK Task Force on Reassessing the Inclusion of Race in Diagnosing Kidney Disease, JASN 2020). The CKD-EPI equation should not be used for patients with unstable renal function and has not been validated in children and those over 70. Current interpretive data was last reviewed 2021. Blood 11/25/2024 7:46 PM CDT 11/25/2024 7:50 PM CDT us Shamar Recinos MD LAB BLOOD ORDERABLES Final Result [facility] ([place]) 1 [facility] Department [place] [address] * Differential, auto (11/25/2024 7:46 PM CDT) Neutrophil abs 4.00 1.50 - 6.50 K/cumm Imm gran abs 0.01 0.00 - 0.10 K/cumm [facility] ([place]) Lymphocyte abs 2.00 0.80 - 3.30 K/cumm [facility] ([place]) Monocyte abs 0.46 0.20 - 0.80 K/cumm [facility] ([place]) Eosinophil abs 0.07 0.00 - 0.50 K/cumm [facility] ([place]) Basophil abs 0.03 0.00 - 0.10 K/cumm [facility] ([place]) Neutrophil pct 60.8 % [facility] ([place]) Comment: Interpretive Data Percent cell count reference ranges are not reported, since discordance with absolute values may lead to misinterpretation of CBC data. Current Interpretive Data was last revised on 2017. Imm gran pct 0.2 % [facility] ([place]) Comment: Interpretive Data Percent cell count reference ranges are not reported, since discordance with absolute values may lead to misinterpretation of CBC data. Current Interpretive Data was last revised on 2017. Lymphocyte pct 30.4 % [facility] ([place]) Comment: Interpretive Data Percent cell count reference ranges are not reported, since discordance with absolute values may lead to misinterpretation of CBC data. Current Interpretive Data was last revised on 2017. Monocyte pct 7.0 % [facility] ([place]) Comment: Interpretive Data Percent cell count reference ranges are not reported, since discordance with absolute values may lead to misinterpretation of CBC data. Current Interpretive Data was last revised on 2017. Eosinophil pct 1.1 % [facility] ([place]) Comment: Interpretive Data Percent cell count reference ranges are not reported, since discordance with absolute values may lead to misinterpretation of CBC data. Current Interpretive Data was last revised on 2017. Basophil pct 0.5 % [facility] ([place]) Comment: Interpretive Data Percent cell count reference ranges are not reported, since discordance with absolute values may lead to misinterpretation of CBC data. Current Interpretive Data was last revised on 2017. Blood 11/25/2024 7:46 PM CDT 11/25/2024 7:50 PM CDT Shamar Recinos MD LAB BLOOD ORDERABLES Final Result [facility] ([place]) 1 [facility]ly [facility] Department [place] [address] * CBC with auto differential (11/25/2024 7:46 PM CDT) WBC 6.57 3.80 - 9.90 K/cumm Hgb 12.3 11.9 - 15.5 g/dL [facility] ([place]) Hct 36.9 35.6 - 45.5 % [facility] ([place]) Plt 291 150 - 400 K/cumm [facility] ([place]) MPV 9.8 9.1 - 12.3 fL [facility] ([place]) RBC 4.06 3.90 - 5.20 M/cumm [facility] ([place]) MCV 90.9 81.3 - 96.4 fL [facility] ([place]) MCH 30.3 27.1 - 33.3 pg [facility] ([place]) MCHC 33.3 32.3 - 35.7 g/dL [facility] ([place]) RDW CV 12.6 11.1 - 14.9 % [facility] ([place]) RDW SD 41.6 35.7 - 48.1 fL [facility] NRBC abs 0.00 0.00 - 0.01 K/cumm [facility] ([place] Blood Venous blood specimen / Unknown 11/25/2024 7:46 PM CDT 11/25/2024 7:50 PM CDT Shamar Recinos MD LAB BLOOD ORDERABLES Final Result [facility] ([place]) 1 [facility] Department of Laboratories [place] [id number] * (ABNORMAL) Comprehensive metabolic panel (11/25/2024 7:46 PM CDT) Sodium 134(L) 135 - 145 mmol/L Potassium, pl 4.4 3.3 - 4.9 mmol/L [facility] ([place] Chloride 96(L) 97 - 110 mmol/L [facility] ([place]) CO2 18(L) 22 - 32 mmol/L [facility] ([place]) Anion gap 20(H) 2 - 15 mmol/L [facility] ([place]) BUN 15 6 - 25 mg/dL [facility] ([place]) Creatinine 0.85 0.60 - 1.10 mg/dL [facility] ([place]) Glucose 470(C) 70 - 199 mg/dL [facility] ([place]) Comment: Critical Result called by [id number] at 2024-11-25 20:28:15. Result Read Back by naomi cortez Interpretive Data Fasting glucose >/= 126 mg/dl is diagnostic for diabetes. Fasting is defined as no caloric intake for at least 8 hours. Fasting glucose between 100 mg/dl to 125 mg/dl is diagnostic of prediabetes. In a patient with classic symptoms of hyperglycemia or hyperglycemic crisis, a random glucose >/= 200 mg/dl is diagnostic for diabetes. In the absence of unequivocal hyperglycemia, results should be confirmed by repeat testing. The classification and Diagnosis of Diabetes Diabetes Care 2021; 46: S19-S40. Current interpretive data was last revised 2022. Calcium 9.2 8.5 - 10.3 mg/dL [facility] ([place]) Bilirubin, total 0.3 0.1 - 1.2 mg/dL [facility] ([place]) Protein, pl 7.2 6.5 - 8.5 g/dL [facility] ([place]) Albumin 4.4 3.5 - 5.0 g/dL [facility] ([place]) Alk phos 96 40 - 130 Units/L [facility] ([place]) ALT 7 7 - 45 Units/L [facility] ([place]) AST 13 10 - 45 Units/L [facility] ([place]) Comment: Hemolysis present. Results may be affected. Slightly Hemolyzed Specimen Blood 11/25/2024 7:46 PM CDT 11/25/2024 7:50 PM CDT us Shamar Recinos MD LAB BLOOD ORDERABLES Final Result [facility] ([place]) 1 [facility]ly [facility] Department [place] [address] * ECG 12 lead (11/25/2024 7:44 PM CDT) 11/25/2024 7:44 PM CDT Narrative [facility] - 11/26/2024 5:42 PM CDT Vent Rate: 93 bpm RR Interval: 645 msec AL Interval: 159 msec QRS Duration: 93 msec QT Interval: 347 msec QTC Interval: 397 msec P-R-T [place]: 53 - 23 - 30 degrees IMPRESSION: SINUS RHYTHM POSSIBLE LEFT ATRIAL ENLARGEMENT [-0.1mV P-WAVE IN V1/V2] POSSIBLE RIGHT VENTRICULAR CONDUCTION DELAY [RSR (QR) IN V1/V2] BORDERLINE ECG no change from prior EKG Electronically Signed By: Miguelito Duarte MD Shamar Recinos MD ECG ORDERABLES Final Resul t Performing Organization Address City/[facility]/[place] Co de Phone Number [facility] * Albumin Creatinine Ratio, Urine (01/26/2024 11:33 AM CDT) Pathologist [facility] [place] Microalb, Ur 11.4 0.0 - 22.9 mg/L [facility] Random Urine Creatinine 49.8 mg/dL [facility] Microalb/Creat Ratio 22.9 0.0 - 29.9 mg/g [facility] Urine 01/26/2024 11:3 3 AM CDT 01/26/2024 12:46 PM CDT Gianna Bethea MD LAB URINE ORDERABLES Fin al Result Performing Organization Address [facility]/[place] Co de Phone Number [facility] * TSH (01/26/2024 11:33 AM CDT) Pathologist [facility] [place] TSH (Thyrotropin) 3.38 0.27 - 4.20 uIU/mL [facility] Blood 01/26/2024 11:3 3 AM CDT 01/26/2024 12:46 PM CDT Gianna Bethea MD LAB BLOOD ORDERABLES Fin al Result Performing Organization Address [facility]/[place] Co de Phone Number [facility] * (ABNORMAL) Lipid panel (01/26/2024 11:33 AM CDT) Pathologist [facility] Triglycerides 129 <150 mg/dL [facility] Comment: Desirable: <150 mg/dL, fasting <175 mg/dL, non-fasting Persistently elevated triglycerides may enhance atherosclerotic cardiovascular disease. Total Cholesterol 213(H) <200 mg/dL [facility] Total HDL-C Direct 68 >50 mg/dL [facility] Non-HDL cholesterol 145 <220 mg/dL [facility] [place] LDL Chol 119 <190 mg/dL [facility] Blood 01/26/2024 11:3 3 AM CDT 01/26/2024 12:46 PM CDT Narrative [facility] - 01/26/2024 2:10 PM CDT Current interpretive data was last updated May 03, 2021. Gianna Bethea MD LAB BLOOD ORDERABLES Fin al Result [facility] * N. gonorrhoeae/C. trachomatis Amplification Urine (12/31/2022 8:43 PM CDT) C. trachomatis Not Detected Not Detected [facility] N. gonorrhoeae Not Detected Not Detected [facility] Comment: Interpretive Data Testing performed by the [facility]. This assay detects Chlamydia trachomatis and Neisseria gonorrhoeae by nucleic acid amplification testing (NAAT). This test is approved by the [place] Food and Drug Administration and the performance characteristics have been verified by the laboratory. The performance characteristics of this test have not been evaluated in individuals less than 14 years of age. Current Interpretive Data was last revised on 2018. Urine (None) 12/31/2022 8:43 PM CDT 12/31/2022 9:37 PM CDT Per Irwin MD LAB MICROBIOLOGY - G ENERAL ORDERABLES Final Result Performing Organization Address City/[facility]/ZIP Co de Phone Number [facility] [place] [address] from Last 3 Months or Most Recently Relevant to Health Maintenance Insurance [facility] [place] [address] Member Subscriber Plan / Payer (Ef fective 2022-Present) Name:Marcio Godfreymoise RIVERA Relation to Subscriber:Self Name:Shama Godfrey NICOLE Payer ID:[id number] (NAIC) Type:MEDICAID RISK OTHER Address: [address] [facility] Advance Directives For more information, please contact: [phone] * Full Code (Latest Code Status on File) Date Activated Date Inactivated Comments 11/26/2024 8:36 AM 11/26/2024 7:28 PM * Full Code Date Activated Date Inactivated Comments 11/16/2023 4:19 PM 11/19/2023 5:09 PM * Full Code Date Activated Date Inactivated Comments 11/14/2023 9:23 AM 11/15/2023 5:14 PM * Full Code Date Activated Date Inactivated Comments 03/14/2023 8:15 PM 03/20/2023 5:28 PM * Full Code Date Activated Date Inactivated Comments 02/19/2023 2:13 AM 02/22/2023 2:08 PM [employer] Software Consultant Relationship Specialty Start Date End Date Jorden Plascencia MD [address] [address] PCP - General Family Medicine 11/25/24 Nicki Villarreal, PhD [facility] [address] [address] Fellow Psychology 04/28/22
--- NOTE | 2025-02-02 13:30 | NEURO_ITS ---
Clinical note: The patient is 19 years old with complaints of paresthesias in both upper limbs and pain in the neck and shoulder. history of juvenile diabetes mellitus. on a brief neurological examination no focal muscle wasting or fasciculations were noted In both upper limbs. Results of the study are given below. Summary of findings: 1. Left and right median motor distal latency amplitude and conduction velocity within normal limits. 2. Left and right ulnar motor distal latencies amplitudes and conduction velocity within normal limits. 3. Right median and ulnar motor studies while recording over 2nd lumbrical and 2nd interossei shows distal latency comparable. Next 4. Left median sensory distal latency was mildly prolonged. Right median and bilateral ulnar and radial sensory distal latencies amplitudes within normal limits. 4. EMG examination performed on both upper limbs. Various muscles examined in C5-T1 distribution. No denervation changes were seen. Motor unit amplitudes and recruitment pattern were within normal limits. impression: EMG and nerve conduction study of both upper limbs is supportive diagnosis of mild left carpal tunnel syndrome. Remainder of the findings are within normal limits. Please feel free to call me if you have any questions with regard to study. Rajni Sims MD, FAAN, FAANEM Neurology and electrodiagnostic Medicine Nerve Conduction Studies Motor Nerve Results ? Latency Amplitude F-Lat Segment Distance CV Comment Site (ms) (mV) (ms) (cm) (m/s) Right Med/Ulnar(Lum-INT) Motor ? Median (Lumb I) Wrist 2.5 1.57 ? Ulnar (Dorsal Interossei IV) Wrist 2.7 5.2 Left Median (APB) Motor Wrist 3.3 7.5 Elbow 7.2 6.3 Elbow-Wrist 210 54 Right Median (APB) Motor Wrist 3.4 7.9 Elbow 7.2 8.4 Elbow-Wrist 205 54 Left Ulnar (ADM) Motor Wrist 2.8 8.8 Bel Elbow 6.0 8.6 Bel Elbow-Wrist 180 56 Abv Elbow 7.4 8.5 Abv Elbow-Bel Elbow 70 50 Right Ulnar (ADM) Motor Wrist 2.5 7.7 Bel Elbow 6.1 7.8 Bel Elbow-Wrist 180 50 Abv Elbow 7.1 7.6 Abv Elbow-Bel Elbow 65 65 Sensory Nerve Results ? Latency (Peak) Amplitude (P-P) Segment Distance CV Comment Site (ms) (?V) (cm) (m/s) Left Median DigIII Sensory Wrist-Dig III 3.4 46 Wrist-Dig III 125 37 Right Median DigIII Sensory Wrist-Dig III 3.0 28 Wrist-Dig III 120 40 Left Median-Ulnar Palmar Sensory ? Median Palm-Wrist 2.5 23 Palm-Wrist 80 32 ? Ulnar Palm-Wrist 1.60 30 Palm-Wrist 80 50 Right Median-Ulnar Palmar Sensory ? Median Palm-Wrist 1.98 30 Palm-Wrist 80 40 ? Ulnar Palm-Wrist 1.78 20 Palm-Wrist 80 45 Left Radial Sensory Forearm-Wrist 1.90 41 Forearm-Wrist 100 53 Right Radial Sensory Forearm-Wrist 1.98 48 Forearm-Wrist 100 51 Left Ulnar Sensory Wrist-Dig V 3.1 66 Wrist-Dig V 120 39 Right Ulnar Sensory Wrist-Dig V 3.1 45 Wrist-Dig V 120 39 Electromyography ?Side Muscle Nerve Ins Act Fibs Psw Amp Dur Recrt Comment Right Deltoid Axillary Nml Nml Nml Nml Nml Nml Right Triceps Radial Nml Nml Nml Nml Nml Nml Right ExtCarUln Radial (Post Int) Nml Nml Nml Nml Nml Nml Right Ext Indicis Radial (Post Int) Nml Nml Nml Nml Nml Nml Right FlexPolLong Median (Ant Int) Nml Nml Nml Nml Nml Nml Right 1stDorInt Ulnar Nml Nml Nml Nml Nml Nml Right Abd Poll Brev Median Nml Nml Nml Nml Nml Nml Right FlexDigProf Ulnar Nml Nml Nml Nml Nml Nml Left Deltoid Axillary Nml Nml Nml Nml Nml Nml Left Triceps Radial Nml Nml Nml Nml Nml Nml Left ExtCarUln Radial (Post Int) Nml Nml Nml Nml Nml Nml Left FlexPolLong Median (Ant Int) Nml Nml Nml Nml Nml Nml Left 1stDorInt Ulnar Nml Nml Nml Nml Nml Nml Left Abd Poll Brev Median Nml Nml Nml Nml Nml Nml Left FlexDigProf Ulnar Nml Nml Nml Nml Nml Nml
== END 2025-02-02 13:19 | disposition home or self-care (01) ==
LOC: ANHNEURO 13:19
PROVIDERS: PCP Emergency Medicine; Visit Provider Psychiatry & Neurology Neurology
DX: E11.9 Type 2 diabetes mellitus without complications (principal); R94.131 Abnormal electromyogram [EMG]
CPT/HCPCS: 95886; 95911